=== PATIENT | male | born 1960 | race Caucasian/White ===

== ENCOUNTER → 2016-08-16 | Outpatient (CLI) | payer BC ==
[~2016-08-16] MED LIST: ATOR-22 PO; B-COTAB18 PO; LISI10TA PO; LRT5 PO; MULT-506 PO; OMEG10007 PO; OMEP40CA PO; PANT1TAB48 PO; VITAMIN D PO; ZNTT/150 PO
--- NOTE | 2016-08-16 11:52 | DIAGNOSTIC IMAGING REPORT ---
CHEST 2 VIEWS ROUTINE CLINICAL HISTORY: Shortness of breath, cough, pneumonia. COMPARISON STUDY: No previous studies for comparison. FINDINGS: The heart is borderline enlarged. There is no evidence of focal pulmonary consolidation. There is no evidence of failure. No pleural effusions are visualized.[ There is an azygos fissure. IMPRESSION: No active disease in the chest. Electronically signed by: John Rutherford M.D. 08/16/2016 11:51 AM Dictated Date/Time: 08/16/2016 11:50 AM
== END | disposition home or self-care (01) ==
LOC: C.RAD1850 11:31
PROVIDERS: ATTEND Nurse Practitioner Family
DX: J18.9 Pneumonia, unspecified organism (principal); R06.02 Shortness of breath; R05 Cough

== ENCOUNTER → 2016-08-27 | Outpatient (CLI) | payer BC ==
--- NOTE | 2016-08-27 14:40 | DIAGNOSTIC IMAGING REPORT ---
RIGHT WRIST MIN 3 VIEWS ROUTINE CLINICAL HISTORY: M79.643 Right pain. FINDINGS: moderate degenerative change of the intercarpal as well as radiocarpal joints. Components of chondrocalcinosis involving the triangular fibrocartilage. No evidence for acute fracture or dislocation. COMPARISON: None. IMPRESSION: Mild/moderate degenerative change of the intercarpal as well as radiocarpal joints. Mild chondrocalcinosis of the triangular fibrocartilage. Electronically signed by: Kirk Romero M.D. 08/27/2016 2:38 PM Dictated Date/Time: 08/27/2016 2:37 PM
== END | disposition home or self-care (01) ==
LOC: C.RAD1850 14:17
PROVIDERS: ATTEND Family Medicine
DX: M79.643 Pain in unspecified hand (principal)

== ENCOUNTER → 2017-02-28 | Day surgery (SDC) | payer BC ==
[2017-02-18 15:08] VITALS: Ht 185.4 cm; Wt 104.5 kg
[~2017-02-28] VITALS: Ht 185.4 cm; Wt 104.5 kg
[~2017-02-28] MED LIST changes: +LIDOCAINE HCL 2% 2 ML VIAL (20MG/ML) ONE; -LRT5 PO; +MIDAZOLAM HCL 1 MG/ML 2ML VIAL ONE; -OMEP40CA PO; +PANT1TAB3 PO; -PANT1TAB48 PO; +PROPOFOL IV EMULSION 10 MG/ML 20 ML VIAL IV ONE; +SODIUM CHLORIDE 0.9% 500ML 500 ML IV ONE
--- NOTE | 2017-02-28 13:10 | Endo History and Physical ---
History & Physical Date of Service: Feb 28, 2017. Chief Complaint: ABDOMINAL PAIN Referring Physician: DR. GARDNER History of Present Illness 56 yo CM who presents for EGD and Colonoscopy secondary to abdominal pain. Past Surgical History Hx Cardiac Surgery: No Hx Internal Defibrillator: No Hx Pacemaker: No Hx Abdominal Surgery: No Hx of Implantable Prosthesis: No Hx Post-Op Nausea and Vomiting: No Hx Cancer Surgery: No Hx Thoracic Surgery: No Hx Orthopedic: Yes (RT ARM SURGERY, RT KNEE SX) Hx Urinary Tract Surgery: No Family History None Social History Smoking Status: Never Smoker Hx Substance Use: No Hx Alcohol Use: Yes (RARELY) Allergies Coded Allergies: No Known Allergies (Verified , 02/28/17) Current Medications Reported Home Medications Medications Dose Route/Sig Max Daily Dose Days Date Category Vitamin B Complex (B-Complex Vitamins) 1 Tab Tab 1 Tab PO DAILY AT LUNCH 02/18/17 Reported [Vitamin D] 1 Tab PO DAILY AT LUNCH 02/18/17 Reported Zantac (Ranitidine HCl) 150 Mg Tab 150 Mg PO HS 02/18/17 Reported Protonix (Pantoprazole) 40 Mg Tab 40 Mg PO QAM 02/18/17 Reported Multivitamin (Multivitamins) Tab 1 Tab PO DAILY AT LUNCH 02/18/17 Reported Prinivil (Lisinopril) 10 Mg Tab 10 Mg PO QPM 02/18/17 Reported [place]-3 (Fish Oil) 1 Ea Cap 1 Cap PO BID 02/18/17 Reported Lipitor (Atorvastatin Calcium) 20 Mg Tab 20 Mg PO QPM 02/18/17 Reported Vital Signs Weight (Kilograms): 104.55 Height (Feet): 6 Height (Inches): 1 Date Time Temp Pulse Resp B/P (MAP) Pulse Ox O2 Delivery O2 Flow Rate FiO2 02/28/17 12:20 37.2 78 18 170/93 (118) 95 Room Air Physical Exam General Appearance: WD/WN, no apparent distress Respiratory/Chest: Auscultation: breath sounds normal Cardiovascular: Heart Auscultation: RRR Abdomen: Bowel Sounds: normal Inspection & Palpation: soft, non-distended, no tenderness, guarding & rebound Assessment and Plan Assessment: 56 yo CM who presents for EGD and Colonoscopy secondary to abdominal pain. Plan: Proceed with EGD and colonoscopy.
--- NOTE | 2017-02-28 13:56 | GI REPORT ---
Procedure Date: 02/28/2017 1:25 PM Procedure: Colonoscopy Indications: Generalized abdominal pain Medicines: Monitored Anesthesia Care Complications: No immediate complications. Estimated Blood Loss: Estimated blood loss: none. Procedure: Pre-Anesthesia Assessment: - Prior to the procedure, a History and Physical was performed, and patient medications and allergies were reviewed. The patient's tolerance of previous anesthesia was also reviewed. The risks and benefits of the procedure and the sedation options and risks were discussed with the patient. All questions were answered, and informed consent was obtained. Prior Anticoagulants: The patient has taken no previous anticoagulant or antiplatelet agents. ASA Grade Assessment: III - A patient with severe systemic disease. After reviewing the risks and benefits, the patient was deemed in satisfactory condition to undergo the procedure. After I obtained informed consent, the scope was passed under direct vision. Throughout the procedure, the patient's blood pressure, pulse, and oxygen saturations were monitored continuously. The scope was introduced through the anus and advanced to the terminal ileum. The colonoscopy was performed without difficulty. The patient tolerated the procedure well. The quality of the bowel preparation was good. The terminal ileum, ileocecal valve, appendiceal orifice, and rectum were photographed. Findings: The perianal and digital rectal examinations were normal. A 3 mm polyp was found in the ascending colon. The polyp was sessile. The polyp was removed with a cold biopsy forceps. Resection and retrieval were complete. A 5 mm polyp was found in the transverse colon. The polyp was sessile. The polyp was removed with a cold snare. Resection and retrieval were complete. There was a small lipoma, 14 mm in diameter, in the transverse colon. Impression: - One 3 mm polyp in the ascending colon, removed with a cold biopsy forceps. Resected and retrieved. - One 5 mm polyp in the transverse colon, removed with a cold snare. Resected and retrieved. - Small lipoma in the transverse colon. Recommendation: - Resume previous diet. - Continue present medications. - Repeat colonoscopy for surveillance based on pathology results. - Return to primary care physician as previously scheduled. Chad Nelson DO 02/28/2017 1:56:03 PM This report has been signed electronically. Note Initiated On: 02/28/2017 1:25 PM I attest to the content of the Intraoperative Record and orders documented therein, exceptions below
--- NOTE | 2017-02-28 14:00 | GI REPORT ---
Procedure Date: 02/28/2017 12:31 PM Procedure: Upper GI endoscopy Indications: Generalized abdominal pain Medicines: Monitored Anesthesia Care Complications: No immediate complications. Estimated Blood Loss: Estimated blood loss: none. Procedure: Pre-Anesthesia Assessment: - Prior to the procedure, a History and Physical was performed, and patient medications and allergies were reviewed. The patient's tolerance of previous anesthesia was also reviewed. The risks and benefits of the procedure and the sedation options and risks were discussed with the patient. All questions were answered, and informed consent was obtained. Prior Anticoagulants: The patient has taken no previous anticoagulant or antiplatelet agents. ASA Grade Assessment: III - A patient with severe systemic disease. After reviewing the risks and benefits, the patient was deemed in satisfactory condition to undergo the procedure. After obtaining informed consent, the endoscope was passed under direct vision. Throughout the procedure, the patient's blood pressure, pulse, and oxygen saturations were monitored continuously. The scope was introduced through the mouth, and advanced to the second part of duodenum. The upper GI endoscopy was accomplished without difficulty. The patient tolerated the procedure well. Findings: The esophagus was normal. The gastric antrum was normal. Biopsies were taken with a cold forceps for Helicobacter pylori testing. The examined duodenum was normal. Impression: - Normal esophagus. - Normal antrum. Biopsied. - Normal examined duodenum. Recommendation: - Resume previous diet. - Continue present medications. - Await pathology results. - Return to primary care physician as previously scheduled. Chad Nelson DO 02/28/2017 2:00:01 PM This report has been signed electronically. Note Initiated On: 02/28/2017 12:31 PM I attest to the content of the Intraoperative Record and orders documented therein, exceptions below
--- NOTE | 2017-02-28 14:14 | Discharge Instructions ---
Endoscopy Patient Instructions Date / Procedure(s) Performed Feb 28, 2017. Colonoscopy, EGD Allergy Information Coded Allergies: No Known Allergies (Verified , 02/28/17) Discharge Date / Findings Feb 28, 2017. EGD: Gastric antrum biopsies Colonoscopy: Colon polyps, Lipoma Medication Instructions OK to resume all medications today as prescribed Reported Home Medications Medications Dose Route/Sig Max Daily Dose Days Date Category Vitamin B Complex (B-Complex Vitamins) 1 Tab Tab 1 Tab PO DAILY AT LUNCH 02/18/17 Reported [Vitamin D] 1 Tab PO DAILY AT LUNCH 02/18/17 Reported Zantac (Ranitidine HCl) 150 Mg Tab 150 Mg PO HS 02/18/17 Reported Protonix (Pantoprazole) 40 Mg Tab 40 Mg PO QAM 02/18/17 Reported Multivitamin (Multivitamins) Tab 1 Tab PO DAILY AT LUNCH 02/18/17 Reported Prinivil (Lisinopril) 10 Mg Tab 10 Mg PO QPM 02/18/17 Reported [place]-3 (Fish Oil) 1 Ea Cap 1 Cap PO BID 02/18/17 Reported Lipitor (Atorvastatin Calcium) 20 Mg Tab 20 Mg PO QPM 02/18/17 Reported Provider Instructions Activity Restrictions - No exercising or heavy lifting for 24 hours. - Do not drink alcohol the day of the procedure. - Do not drive a car or operate machinery until the day after the procedure. - Do not make any important decisions or sign important papers in 24 hours after the procedure. Following Day: - Return to full activity which may include returning to work/school. Diet Start your diet with liquids and light foods (jello, soup, juice, toast). Then eat your usual diet if not nauseated. Treatment For Common After Affects For mild abdominal pain, bloating, or excessive gas: - Rest - Eat lightly - Lie on right side Follow-Up Information Follow-up with DR. GARDNER as scheduled Anesthesia Information What You Should Know You have had a procedure that required some medicine to reduce anxiety and discomfort. This treatment is called moderate sedation. After receiving the treatment, you may be sleepy, but you will be able to breathe on your own. The effects of the treatment may last for several hours. Follow these instructions along with Activity/Diet recommendations noted above: * Do NOT do anything where dizziness or clumsiness would be dangerous. * Rest quietly at home today, then you can be up and about tomorrow. * Have a responsible person stay with you the rest of today. * You may have had an I.V. today. If so, you may take the dressing off later today. Recommendations Call your doctor if: * Trouble breathing * Continuous vomiting for more than 24 hours * Temperature above 101 degrees * Severe abdominal pain or bloating * Pain not relieved by pain medicine ordered * There is increased drainage or redness from any incision * A large amount of rectal bleeding greater than 2-3 tablespoons. (If you had a polyp/s removed or have hemorrhoids, a small amount of blood - from the rectum is to be expected.) * You have any unanswered questions or concerns. IN THE EVENT OF A SERIOUS EMERGENCY, GO TO THE NEAREST EMERGENCY ROOM Your discharge instructions were prepared by provider Chad Nelson. Patient Instructions Signature Page Caleb Marcos Patient (or Guardian) Signature/Date: I have read and understand the instructions given to me by my caregivers. Caregiver/RN/Doctor Signature/Date: The above-named patient and/or guardian has received patient instructions on this date. + Original Patient Signature Page (only) stays with chart. Please make copy for patient.
[2017-02-28 14:15] VITALS: BP 144/99; PULSE 70; O2SAT 99
--- NOTE | 2017-02-28 14:35 | Anesthesiology Progress Note ---
Anesthesia Post Op Note Date & Time Feb 28, 2017 at 14:35 Vital Signs Pain Intensity: 8 Vital Signs Past 12 Hours Date Time Temp Pulse Resp B/P (MAP) Pulse Ox O2 Delivery O2 Flow Rate FiO2 02/28/17 14:15 70 18 144/99 (114) 99 Room Air 02/28/17 14:00 71 18 172/96 (121) 99 Room Air 02/28/17 13:45 86 18 141/86 (104) 98 Room Air 02/28/17 12:20 37.2 78 18 170/93 (118) 95 Room Air Notes Mental Status: alert / awake / arousable, participated in evaluation Pt Amnestic to Procedure: Yes Nausea / Vomiting: adequately controlled Pain: adequately controlled Airway Patency, RR, SpO2: stable & adequate BP & HR: stable & adequate Hydration State: stable & adequate Anesthetic Complications: no major complications apparent
== END | disposition home or self-care (01) ==
LOC: C.GI 12:00
PROVIDERS: ATTEND Internal Medicine
DX: K29.60 Other gastritis without bleeding (principal); D12.2 Benign neoplasm of ascending colon; D12.3 Benign neoplasm of transverse colon; I10 Essential (primary) hypertension; E78.5 Hyperlipidemia, unspecified; M19.90 Unspecified osteoarthritis, unspecified site; Z79.899 Other long term (current) drug therapy

== ENCOUNTER → 2017-03-14 | Outpatient (CLI) | payer BC ==
[~2017-03-14] MED LIST changes: -LIDOCAINE HCL 2% 2 ML VIAL (20MG/ML) ONE; -MIDAZOLAM HCL 1 MG/ML 2ML VIAL ONE; +OPTIRAY 320 IV PRN; -PROPOFOL IV EMULSION 10 MG/ML 20 ML VIAL IV ONE; +RANI150T85 PO; -SODIUM CHLORIDE 0.9% 500ML 500 ML IV ONE; -ZNTT/150 PO
--- NOTE | 2017-03-14 12:42 | DIAGNOSTIC IMAGING REPORT ---
CT SCAN OF THE ABDOMEN AND PELVIS WITH IV CONTRAST CLINICAL HISTORY: Weight loss. Generalized abdominal pain. COMPARISON STUDY: Abdominal ultrasound dictated 12/27/2011. TECHNIQUE: Following the IV administration of 93 cc of Optiray 320, CT scan of the abdomen and pelvis is performed from the lung bases to the proximal femora. Images are reviewed in the axial, sagittal, and coronal planes. IV contrast was administered without complication. A dose lowering technique was utilized adhering to the principles of ALARA. CT DOSE: 711.76 mGy.cm FINDINGS: Lung bases: The heart is top normal in size and without pericardial effusion. The lung bases are clear noting dependent atelectasis. Liver: The contrast-enhanced liver is normal in size and contour. The liver demonstrates significant attenuation consistent with mild hepatic steatosis. There is no intrahepatic biliary ductal dilatation. The hepatic veins and portal veins are patent. Gallbladder: Unremarkable. Spleen: Normal in size and attenuation. Pancreas: A punctate calcification is incidentally noted in the pancreatic tail. The pancreas is otherwise normal in appearance. Adrenal glands: Unremarkable. Kidneys: The contrast enhanced kidneys are normal in size and without hydronephrosis. The kidneys enhance symmetrically. Abdominal vasculature: The abdominal aorta is normal in course and caliber noting scattered foci of atherosclerotic calcification. Bowel: There are scattered colonic diverticula without CT evidence of acute diverticulitis. Mild to moderate colonic fecal retention is observed. No bowel obstruction is seen. The appendix is well-visualized and normal. Peritoneum: There is no intraperitoneal free air or abdominal ascites. There is a small fat-containing umbilical hernia. Lymphadenopathy: None. Pelvic viscera: The bladder, prostate, and seminal vesicles are normal as visualized. Skeletal structures: No lytic or blastic lesions are seen. Mild lumbosacral spondylosis is noted. A 2.3 cm ossific lesion arises posteriorly from the subtrochanteric right femur. This is only partially imaged and may represent an osteochondroma. IMPRESSION: 1. There are no acute infectious or inflammatory findings in the abdomen or pelvis. 2. Mild to moderate colonic fecal retention. No bowel obstruction is seen. 3. Mild hepatic steatosis. 4. Question osteochondroma arising posteriorly from the subtrochanteric right femur. Correlation with right femoral radiographs is recommended for further assessment. 5. Additional findings as above. Electronically signed by: Troy Copeland M.D. 03/14/2017 12:41 PM Dictated Date/Time: 03/14/2017 12:35 PM
== END | disposition home or self-care (01) ==
LOC: C.CTS 11:46
PROVIDERS: ATTEND Registered Nurse
DX: R63.4 Abnormal weight loss (principal); R14.0 Abdominal distension (gaseous); R10.9 Unspecified abdominal pain; K59.00 Constipation, unspecified; K76.0 Fatty (change of) liver, not elsewhere classified; R93.7 Abnormal findings on diagnostic imaging of other parts of musculoskeletal system

== ENCOUNTER → 2017-03-19 | Outpatient (CLI) | payer OTHER ==
[~2017-03-19] MED LIST changes: -OPTIRAY 320 IV PRN
--- NOTE | 2017-03-19 14:42 | DIAGNOSTIC IMAGING REPORT ---
R FEMUR 2 VIEWS ROUTINE CLINICAL HISTORY: R93.[id number] [address] 03/14/2017 COMPARISON: CT 03/14/2017 DISCUSSION: Benign bony exostosis posterior aspect proximal right femur. Additional small bony exostosis arising from the anterior aspect distal femur medially superior to the patellofemoral joint. These findings are considered benign. Degenerative change right knee involving all major joint compartments. There is no evidence for soft tissue swelling. IMPRESSION: Multiple bony exostosis accounting for the CT finding described previously. These are considered benign findings. Degenerative change right knee. No acute process. The above report was generated using voice recognition software. It may contain grammatical, syntax or spelling errors. Electronically signed by: Kirk Romero M.D. 03/19/2017 2:41 PM Dictated Date/Time: 03/19/2017 2:39 PM
--- NOTE | 2017-03-19 14:43 | DIAGNOSTIC IMAGING REPORT ---
ABDOMEN 2VIEW W/PA CHEST RTN CLINICAL HISTORY: K59.[id number] [id number] COMPARISON STUDY: CT scan dated 03/14/2017 FINDINGS: The heart is mildly enlarged. There is an azygos fissure. There is no free intraperitoneal air. There is no focal pulmonary consolidation. Erect and supine views the abdomen reveal no abnormally dilated loops of large or small bowel. There are no transition zones indicate bowel obstruction. There is a 35mm calcified lesion projected over the intertrochanteric right femur. This corresponds to the lesion described on CT scanning. IMPRESSION: No evidence of bowel obstruction. No evidence of free air. Electronically signed by: John Rutherford M.D. 03/19/2017 2:42 PM Dictated Date/Time: 03/19/2017 2:40 PM
== END | disposition home or self-care (01) ==
LOC: C.RAD1850 14:20
PROVIDERS: ATTEND Registered Nurse
DX: K59.00 Constipation, unspecified (principal); R93.8 Abnormal findings on diagnostic imaging of other specified body structures; M25.761 Osteophyte, right knee; M17.11 Unilateral primary osteoarthritis, right knee

== ENCOUNTER 2018-05-31 11:21 | Inpatient (IN) ==
--- NOTE | 2018-05-31 12:48 | XRay Report ---
XR chest 1V portable CLINICAL HISTORY: Atypical chest pain COMPARISON STUDY: 12/15/2017 FINDINGS: The heart is mildly enlarged. There is suspected underlying emphysema. There is no failure. There is no focal pulmonary consolidation. There are no pleural effusions. There is an azygos fissur e.[ IMPRESSION: No active disease in the chest. Electronically signed by: John Rutherford M.D. 05/31/2018 12:47 PM
[2018-05-31 13:11] LABS: Basophils # (auto) 0.02 K/uL (0-0.2); Basophils % (auto) 0.2 %; Eosinophils # (auto) 0.06 K/uL (0-0.5); Eosinophils % (auto) 0.6 %; Hematocrit (blood only) 36.4 % (42-52); Hemoglobin 12.9 g/dL (14.0-18.0); Immature Granulocytes # (auto) 0.06 K/uL (0.00-0.02); Immature Granulocytes % (auto) 0.6 %; Lymphocytes # (auto) 1.35 K/uL (1.2-3.4); Lymphocytes % (auto) 14.2 %; Mean Corpuscular Hgb Conc 35.4 g/dL (32-36); Mean Corpuscular Volume 83.7 fL (80-100); Mean Platelet Volume 11.9 fL (7.4-10.4); Monocytes # (auto) 1.02 K/uL (0.11-0.59); Monocytes % (auto) 10.7 %; Neutrophils # (auto) 6.98 K/uL (1.4-6.5); Neutrophils % (auto) 73.7 %; Platelet Count 162 K/uL (130-400); RDW Coefficient of Variation 13.7 % (11.5-14.5); RDW Standard Deviation 41.4 fL (36.4-46.3); Red Blood Count 4.35 M/uL (4.7-6.1); White Blood Count 9.49 K/uL (4.8-10.8)
[2018-05-31 13:28] LABS: Partial Thromboplastin Ratio 0.8; Partial Thromboplastin Time 22.5 Seconds (21.0-31.0); Prothrombin Time 10.3 Seconds (9.0-12.0)
[2018-05-31 13:38] LABS: Alanine Aminotransferase 39 U/L (12-78); Albumin Level 4.2 gm/dl (3.4-5.0); Aspartate Aminotransferase 107 U/L (15-37); BUN Creatinine Ratio 20.3 (10-20); Blood Urea Nitrogen 74 mg/dl (7-18); Calcium 8.6 mg/dl (8.5-10.1); Carbon Dioxide 26 mmol/L (21-32); Chloride 91 mmol/L (98-107); Creatinine Clr Calc Pharmacy 27.3 ml/min; Est GFR (African American) 19.9; Est GFR (Non-African American) 17.2; Glucose 109 mg/dl (70-99); Potassium 4.4 mmol/L (3.5-5.1); Sodium 129 mmol/L (136-145)
[2018-05-31 13:43] LABS: Albumin Globulin Ratio 1.2 (0.9-2); Alkaline Phosphatase 76 U/L (45-117); Bilirubin,Total 1.2 mg/dl (0.2-1); Globulin 3.4 gm/dl (2.5-4.0); Total Protein 7.6 gm/dl (6.4-8.2); Troponin I < 0.015 ng/ml (0-0.045)
--- NOTE | 2018-05-31 13:49 | CT Scan Report ---
CT OF THE CERVICAL SPINE CLINICAL HISTORY: Severe posterior neck pain COMPARISON STUDY: No previous studies for comparison. CT DOSE: 277.48 mGy.cm TECHNIQUE: CT scan of the cervical spine was performed from the skull base to the thoracic inlet. Claudia ges are reviewed in the axial, sagittal, and coronal planes. IV contrast was not administered for thi s examination. A dose lowering technique was utilized adhering to the principles of ALARA. 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 There ar e C1-2 arthritic changes. There are no acute fractures. The prevertebral soft tissues are normal. No fractures or subluxations are visualized. There are multilevel degenerative changes most pronounced at the C5-6 level. IMPRESSION: 1. No acute fractures or traumatic subluxations 2. Degenerative changes at C5-6 level with posterior osteophytic spurring 3. 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 Electronically signed by: John Rutherford M.D. 05/31/2018 1:47 PM
[2018-05-31] MEDS ORDERED: SODIUM CHLORIDE 0.9% 1000ML 1,000 ML IV ONE (13:59)
[2018-05-31] MEDS ORDERED: MoRPHine SULFATE 4 MG/ML 1 ML CARP\\VIAL IV STA (14:13)
[2018-05-31] MEDS ORDERED: ONDANSETRON INJ 2 MG/ML 2 ML VIAL IV STA (14:13)
[2018-05-31 14:46] LABS: Appearance Urine Clear (Clear); Bacteria Urine Automated Negative (Negative); Bilirubin Urine Negative (Negative); Blood Urine 1+ (Negative); Color Urine Yellow; Glucose Urine UA Negative (Negative); Ketones Urine Negative (Negative); Leukocyte Esterase Urine Negative (Negative); Nitrite Urine Negative (Negative); Protein Urine Negative (Negative); RBC Urine Automated 0-4 /hpf (0-4); Specific Gravity Urine 1.016 (1.000-1.030); Urobilinogen Urine Negative (Negative)
--- NOTE | 2018-05-31 14:56 | History & Physical Report ---
Date of Service May 31, 2018 Assessment & Plan (1) LATOSHA (acute kidney injury): - Will admit to med surg - Appears pt baseline Cr. is ~0.83-1.1 last November, no hx of ckd. - Hold on nephrotoxins including lisinopril, ibuprofen, sulindac, Maxzide. - NSS at 100 ml/hr x 12 hrs and reassess volume status with hx of lower extremity edema. - Weight loss as per HPI likely partial dehydration and pharmacotherapy. Monitor with daily weights. - Voltaren gel for pain. (2) Neck pain: - Appears to be musculoskeletal as this is reproducible on exam - ice, rest, tylenol and voltaren gel for pain. No NSAIDs with LATOSHA as above. - Consider flexeril if pain unresolved with the conservative measures as above. (3) COPD (chronic obstructive pulmonary disease): - Last PFTs completed in Dec 2017, demonstratated mild obstructive pattern, could not exclude coexisting restriction. - Continue proAir, dulera, spiriva. Has outpt home sleep study which r/o JULY. - follows with Karla Kamara as outpt. - Stable (4) HTN (hypertension): - Continue metoprolol succinate 25 mg daily, diltiazem 120 mg daily - Hold lisinopril, lasix (5) HLD (hyperlipidemia): - Cont atorvastatin 20 mg HS (6) Hiatal hernia: - noted. Continue PPI and H2 mitch - pt with complaints of bloating and distension which has been ongoing x 6 mo. (7) Esophageal dysphagia: - Stable, continue PPI and H2 mitch. Dentures in for all meals. (8) Overweight (BMI 25.0-29.9): (9) Bilateral lower extremity edema: - Hold lasix - follow (10) Venous insufficiency: - As above. (11) PAC (premature atrial contraction): - Hx of such, stable. - EKG reviewed showing PACs. No acute findings (12) DVT prophylaxis: - Teds, scds, heparin subq History of Present Illness Chief Complaint: Neck pain Primary Care Provider: Roslyn Pennington This is a 57 yo M with PMHx of HTN, HLD, COPD, hiatal hernia, tubular adenoma of the colon, gastritis, leg swelling, hepatic steatosis, diverticulitis, PACs, venous insufficiency, who presents with worsening neck pain x 2 days. 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 Patient reports increased overhead lifting and strenuous activities at his current job compared to previously. He has been using ibuprofen 600 mg in the morning and night along with heat to help alleviate pain. Patient notes that he has been eating and drinking about at his baseline, however admits to not drinking as much water while he is busy at work. Patient has been working 6-7 hours a day for the past 2 weeks. He is able to move his neck from side to side and up and down, however looking to the left more than ~45 degrees causes pain. He denies any recent fevers, chills, sweats, chest pain, shortness of breath. He reports no recent leg swelling and that his weight has dropped 13 lbs in the past 2 weeks from his home scale compared to recent outpt office visit. While being assessed in the ER, the patient was found to have an elevated creatinine of 3.67 compared to his baseline of 0.83-1.00 last November. His BUN is also elevated at 75. Patient denies any changes in urinary habits, no dysuria, urine is clear yellow, no increased frequency. Patient notes a chronic abdominal distention and states he has a lot of gas. Patient has been taking lansoprazole and ranitidine but feels this is not necessarily helping. Pt notes he has been taking routine lasix 40 mg daily, lisinopril 10 mg daily, sulindac 200 mg BID, Maxzide 25mg daily as well as the ibuprofen mentioned earlier. Allergies Allergy/AdvReac Type Severity Reaction Status Date / Time No Known Allergies Allergy Mild Verified 02/18/18 14:04 Home Medications Home Medications Medication Instructions Recorded Confirmed Type atorvastatin 20 mg PO HS 11/26/17 05/31/18 History Dulera 2 puff INHALATION Q12H 02/03/18 05/31/18 History albuterol sulfate [ProAir HFA] 2 puff INHALATION QID PRN 02/03/18 05/31/18 History furosemide [Lasix] 40 mg PO QAM 02/03/18 05/31/18 History lansoprazole 30 mg PO QAM 02/03/18 05/31/18 History lisinopril 10 mg PO QAM 02/03/18 05/31/18 History montelukast [Singulair] 10 mg PO PM 02/03/18 05/31/18 History ranitidine HCl 150 mg PO HS 02/03/18 05/31/18 History zolpidem [Ambien] 1 - 2 tab PO HS PRN 02/03/18 05/31/18 History diltiazem HCl [Cartia XT] 120 mg PO DAILY 03/03/18 05/31/18 History metoprolol succinate [Toprol XL] 25 mg PO DAILY 03/03/18 05/31/18 History sulindac 200 mg PO BID 03/03/18 05/31/18 History triamterene-hydrochlorothiazid 1 tab PO DAILY 03/03/18 05/31/18 History [Maxzide-25mg] ibuprofen 600 mg PO BID 05/31/18 05/31/18 History Past Med/Surg History Medical History LATOSHA (acute kidney injury) Neck pain Duodenitis (Inactive) Fluid overload (Inactive) "FLUID IN MY LUNGS" Leg swelling (Inactive) Arrhythmia Chronic obstructive pulmonary disease GERD (gastroesophageal reflux disease) Hiatal hernia Hyperlipidemia Hypertension Osteoarthritis Surgical History Clubfoot, congenital H/O palate surgery History of adenoidectomy History of arthroscopy RT KNEE History of colonoscopy History of esophagogastroduodenoscopy (EGD) History of nasal septoplasty History of surgery on arm RT ARM History of tonsillectomy History of tooth extraction History of vein stripping Family History Other No pertinent family history Social History Preferred Language: [place] Communication Ability: Effective Vocational Aide Required: No Beliefs That Will Affect Care: None Current Living Situation: Alone Current Living Situation Comment: LIVES WITH MOTHER (PT HELPS MOTHER OUT) Other Information That Helps Us Care for You: No Feels Safe at Home: Yes Safety Concerns: Feels Safe At This Time Smoking Status: Never smoker Hx Alcohol Use: No Hx Substance Use: No Review of Systems Constitutional: No fever, sweats or chills Eyes: No diplopia, no worsening or blurred vision ENT: normal hearing, no trouble swallowing Respiratory: No cough, sputum, dyspnea at rest or on exertion Cardiovascular: No chest pain, tightness or palpitations Abdomen: No pain, nausea, vomiting, diarrhea or constipation Musculoskeletal: + As per HPI. No joint pain, calf pain, + hx of leg swelling but currently negative Neurologic: No weakness, numbness/tingling, or balance problems Psychiatric: No anxiety or depression Skin: No rash or itch Physical Exam Vital Signs (Past 24 Hours): Last Vital Signs Temp 36.7 C 05/31/18 11:22 Pulse 72 05/31/18 14:11 Resp 17 05/31/18 14:11 BP 112/71 05/31/18 14:11 Pulse Ox 100 05/31/18 14:11 Physical Exam: General: awake, alert, no apparent distress, +overweight Head: Normocephalic, atraumatic ENT: PERRL, EOMI, no pharyngeal exudate, mucous membranes moist, + dentures. Chest: Clear to auscultation, on room air, no adventitious breath sounds Cardiac: Regular rate and rhythm, no murmur, no JVD, normal peripheral pulses, good capillary refill Abdominal: NABS x 4 quadrants, soft, + mild distension, nontender to palpation, no rebound, guarding or tenderness Extremities: Normal inspection, no peripheral edema or erythema, calfs nontender to palpation Musculoskeletal: + point tenderness over left lateral cervical region at level of C4-C7, +pain with left lateral neck rotation. Psych: Normal mood and affect Neuro: AAO x 3, strength intact bilaterally and related 5/5, no motor deficits, speech is clear, no peripheral sensory deficits Results & Data Diagnostic Findings XR chest 1V portable CLINICAL HISTORY: Atypical chest pain COMPARISON STUDY: 12/15/2017 FINDINGS: The heart is mildly enlarged. There is suspected underlying emphysema. There is no failure. There is no focal pulmonary consolidation. There are no pleural effusions. There is an azygos fissure.[ IMPRESSION: No active disease in the chest. CT OF THE CERVICAL SPINE CLINICAL HISTORY: Severe posterior neck pain COMPARISON STUDY: No previous studies for comparison. CT DOSE: 277.48 mGy.cm TECHNIQUE: CT scan of the cervical spine was performed from the skull base to the thoracic inlet. Images are reviewed in the axial, sagittal, and coronal planes. IV contrast was not administered for this examination. A dose lowering technique was utilized adhering to the principles of ALARA. 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 There are C1-2 arthritic changes. There are no acute fractures. The prevertebral soft tissues are normal. No fractures or subluxations are visualized. There are multilevel degenerative changes most pronounced at the C5-6 level. IMPRESSION: 1. No acute fractures or traumatic subluxations 2. Degenerative changes at C5-6 level with posterior osteophytic spurring 3. 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 ECG Additional Comments: 31-MAY-2018 12:40:55 [facility] Sinus rhythm with Premature atrial complexes Otherwise normal ECG When compared with ECG of 03-DEC-2017 20:09, No significant change was found 25mm/s 10mm/mV 150Hz 8.0 SP2 12SL 241 DAGO: 10 Referred by: ED Unconfirmed Vent. rate 68 BPM TX interval 200 ms QRS duration 98 ms QT/QTc 400/425 ms P-R-T axes 82 -29 15 Code Status & VTE Plan Code Status Full Supervising Physician Co-Signing Physician Notes PA Supervision Note: I personally saw and examined the patient. I verified all callaway points and agree with LUIS Jones with the following exceptions and/or additions: Pt here with neck pain and was found to have renal failure in ER. He admits to not drinking or eating as much the last few weeks due to a new job. Has been having leg cramps. He also c/o chronic belching and flatus for 6-12 months and has had GI workup, tried multiple meds. History reviewed as above ROS as above Vitals reviewed NAD, obese, alert, awake, speech is dysarthric at times RRR no mgr MMM, OP clear CTAB no wcr Abd +BS soft NT ND Ext trace pitting edema left ankle, otherwise normal Skin no rashes FeNA 2.37% consistent more with ATN however BUN/Marker Assembler ratio >20 so likely a prerenal component as well. UA with 1+ blood but no RBCs--> could be myoglobin AST elevated from previous at 100 Acute kidney injury--could be prerenal from dehydration in setting of taking diuretics and lisinopril, but turned into ATN from prolonged dehydration/hypotension? -bladder scan PVR only 80 mLs so not retaining but checking renal US -could be rhabdomyolysis given LATOSHA, 1+ blood in urine without RBCs (could be myoglobin), and AST elevated--->> Check CPK now and in AM -if CPK>10k tonight, advised RN to increase his IVFs to 150 mls/hr -follow LFTs in AM as well
[2018-05-31] MEDS ORDERED: NON-FORMULARY MEDICATION (Mometasone-Formoterol [Dulera] 2 PUFFS) INH SCH (16:46)
[2018-05-31] MEDS ORDERED: ACETAMINOPHEN 325 MG TAB PO PRN (16:46)
[2018-05-31] MEDS ORDERED: ONDANSETRON INJ 2 MG/ML 2 ML VIAL IV PRN (16:46)
--- NOTE | 2018-05-31 18:01 | Emergency Department Note ---
Entered by Mega Cheema acting as a scribe for Obi Ruby DO History of Present Illness General Chief complaint: Neck Injury/Pain Stated complaint: PAIN IN BACK OF NECK Source: patient Mode of arrival: ambulatory History of Present Illness Provider complaint: Neck Pain Onset (ago): day(s) 2 Location: neck Maximum Pain Intensity: 8 Current Pain Intensity: 8 Quality: + other (neck pain ) Exacerbated By: + movement Associated symptoms: no cough and no headaches Patient is a 57 year old male who presents himself to the ER with complains of neck pain which started a couple days ago. He states while lying down he feels the pain but the pain is exacerbated when he starts moving around. He reports the pain at a value of 8 on the pain intensity scale. Patient states he has not seen a provider in the past for this same issue. He also notes his legs have been falling asleep. Patient reports he does have a past history of COPD. He denied coughs and headaches. Home Medications Home Medications Medication Instructions Recorded Confirmed Type atorvastatin 20 mg PO HS 11/26/17 05/31/18 History Dulera 2 puff INHALATION Q12H 02/03/18 05/31/18 History albuterol sulfate [ProAir HFA] 2 puff INHALATION QID PRN 02/03/18 05/31/18 History furosemide [Lasix] 40 mg PO QAM 02/03/18 05/31/18 History lansoprazole 30 mg PO QAM 02/03/18 05/31/18 History lisinopril 10 mg PO QAM 02/03/18 05/31/18 History montelukast [Singulair] 10 mg PO PM 02/03/18 05/31/18 History ranitidine HCl 150 mg PO HS 02/03/18 05/31/18 History zolpidem [Ambien] 1 - 2 tab PO HS PRN 02/03/18 05/31/18 History diltiazem HCl [Cartia XT] 120 mg PO DAILY 03/03/18 05/31/18 History metoprolol succinate [Toprol XL] 25 mg PO DAILY 03/03/18 05/31/18 History sulindac 200 mg PO BID 03/03/18 05/31/18 History triamterene-hydrochlorothiazid 1 tab PO DAILY 03/03/18 05/31/18 History [Maxzide-25mg] ibuprofen 600 mg PO BID 05/31/18 05/31/18 History Allergies Allergy/AdvReac Type Severity Reaction Status Date / Time No Known Allergies Allergy Mild Verified 02/18/18 14:04 Past Med/Surg History Medical History LATOSHA (acute kidney injury) Neck pain Duodenitis (Inactive) Fluid overload (Inactive) "FLUID IN MY LUNGS" Leg swelling (Inactive) Arrhythmia Chronic obstructive pulmonary disease GERD (gastroesophageal reflux disease) Hiatal hernia Hyperlipidemia Hypertension Osteoarthritis Surgical History Clubfoot, congenital H/O palate surgery History of adenoidectomy History of arthroscopy RT KNEE History of colonoscopy History of esophagogastroduodenoscopy (EGD) History of nasal septoplasty History of surgery on arm RT ARM History of tonsillectomy History of tooth extraction History of vein stripping Family History Other No pertinent family history Social History Preferred Language: Thai Communication Ability: Effective Md Do Resident Urgent Care Required: No Beliefs That Will Affect Care: None Current Living Situation: Alone Current Living Situation Comment: LIVES WITH MOTHER (PT HELPS MOTHER OUT) Other Information That Helps Us Care for You: No Feels Safe at Home: Yes Safety Concerns: Feels Safe At This Time Smoking Status: Never smoker Hx Alcohol Use: No Hx Substance Use: No Review of Systems See HPI for pertinent positives & negatives. and A total of 10 systems reviewed and were otherwise negative Physical Exam Vital Signs Vital Signs - 24 hr 05/31/18 12:57 05/31/18 13:30 05/31/18 14:11 Temperature Temperature Source Pulse Rate [Left Finger] 72 72 Respiratory Rate 17 17 Blood Pressure [Left Arm] 119/58 L 112/71 Blood Pressure Mean [Left Arm] 78 84 Blood Pressure Position [Left Arm] Pulse Oximetry 95 99 100 Oxygen Delivery Method Room Air Room Air Room Air Oxygen Flow Rate 95 05/31/18 15:56 05/31/18 16:08 05/31/18 17:18 Temperature 36.3 C L Temperature Source Oral Pulse Rate [Left Finger] 86 71 Respiratory Rate 15 20 Blood Pressure [Left Arm] 148/75 H 124/71 Blood Pressure Mean [Left Arm] 99 88 Blood Pressure Position [Left Arm] Lying Pulse Oximetry 96 95 97 Oxygen Delivery Method Room Air Room Air Room Air Oxygen Flow Rate 06/01/18 00:23 06/01/18 08:08 Temperature 36.9 C 36.8 C Temperature Source Oral Oral Pulse Rate [Left Finger] 75 73 Respiratory Rate 20 18 Blood Pressure [Left Arm] 116/66 119/70 Blood Pressure Mean [Left Arm] 82 86 Blood Pressure Position [Left Arm] Pulse Oximetry 96 98 Oxygen Delivery Method Room Air Room Air Oxygen Flow Rate GENERAL: Patient is awake alert in no acute distress patient is resting comfortably and showing no signs of anxiety EYES: The conjunctivae are clear. The pupils are round and reactive. EARS, NOSE, MOUTH AND THROAT: The nose is without any evidence of any deformity. Mucous membranes are moist tongue is midline NECK: There is upper cervical spine tenderness to palpation. Range of motion elicits pain. There was no step-off noted. There was paravertebral muscle spasm in the upper cervical spine. RESPIRATORY: Normal respiratory effort is noted there is no evidence of wheezing rhonchi or rales CARDIOVASCULAR: Regular rate and rhythm noted there no murmurs rubs or gallops normal S1 normal S2 GASTROINTESTINAL: The abdomen is distended. There is diffuse tenderness to palpation but no guarding or rigidity. MUSCULOSKELETAL/EXTREMITIES: There is no evidence of gross deformity full range of motion is noted in the hips and shoulders SKIN: There is no obvious evidence of any rash. There are no petechiae, pallor or cyanosis noted. NEUROLOGIC: Patient is awake alert and oriented x3 strength is symmetric patellar reflexes are 2+ bilaterally Course 1212: Past medical records reviewed. The patient was evaluated in room C11A, and a complete history and physical examination were performed. 1357: I reevaluated the patient. 1441: The patient will be admitted under the care of GERI Drake, Hospitalist who will admit the patient under their care for further treatment. Consultations Consultation #1: GERI Drake, Time: 14:41 Administered Medications Acetaminophen (Tylenol) 650 mg PO Q4H PRN PRN Reason: Moderate Pain Stop: 06/30/18 16:45 Last Admin: 05/31/18 22:17 Dose: 650 mg Documented by: [id number] Albuterol (Ventolin Hfa) 2 puffs INH QID PRN PRN Reason: Shortness Of Breath Stop: 06/30/18 17:30 Last Admin: 06/01/18 07:11 Dose: 2 puffs Documented by: [id number] Atorvastatin Calcium (Lipitor) 20 mg PO HS [facility] Stop: 06/30/18 20:59 Last Admin: 05/31/18 21:17 Dose: 20 mg Documented by: [id number] Diclofenac Sodium (Voltaren 1% Top) 1 appln EXT QID FREDDIE Stop: 06/30/18 22:14 Last Admin: 06/01/18 09:00 Dose: 1 appln Documented by: [id number] Admin: 05/31/18 23:25 Dose: 1 appln Documented by: [id number] Diltiazem HCl (Cardizem Cd) 120 mg PO DAILY FREDDIE Stop: 07/01/18 08:59 Last Admin: 06/01/18 08:59 Dose: 120 mg Documented by: [id number] Heparin Sodium (Porcine) (Heparin Sodium (Porcine)) 5,000 units SQ Q8 FREDDIE Stop: 06/30/18 21:59 Last Admin: 06/01/18 06:13 Dose: 5,000 units Documented by: [id number] Cosigned by: [id number] Admin: 05/31/18 21:18 Dose: 5,000 units Documented by: [id number] Cosigned by: [id number] Sodium Chloride (Nss 1000ml) 1,000 mls @ 100 mls/hr IV .Q10H FREDDIE Stop: 06/30/18 04:45 Last Admin: 06/01/18 04:56 Dose: 100 mls/hr Documented by: [id number] Infusion: 06/01/18 04:22 Dose: 100 mls/hr Documented by: [id number] Admin: 05/31/18 18:22 Dose: 100 mls/hr Documented by: [id number] Metoprolol Succinate (Toprol Xl) 25 mg PO DAILY FREDDIE Stop: 07/01/18 08:59 Last Admin: 06/01/18 08:59 Dose: 25 mg Documented by: [id number] Miscellaneous (Order Awaiting Action) 1 ea N/A QS [facility] Stop: 07/01/18 00:00 Last Admin: 06/01/18 08:58 Dose: Not Given Documented by: [id number] Admin: 06/01/18 00:41 Dose: Not Given Documented by: [id number] Montelukast Sodium (Singulair) 10 mg PO PM FREDDIE Stop: 06/30/18 20:59 Last Admin: 05/31/18 21:17 Dose: 10 mg Documented by: [id number] Ranitidine HCl (Zantac) 150 mg PO HS FREDDIE Stop: 06/30/18 20:59 Last Admin: 05/31/18 21:17 Dose: 150 mg Documented by: [id number] Discontinued Medications Sodium Chloride (Nss 1000ml) 1,000 mls @ 999 mls/hr IV .Q1H1M ONE Stop: 05/31/18 14:59 Last Infusion: 05/31/18 15:15 Dose: 0 mls/hr Documented by: [id number] Admin: 05/31/18 14:11 Dose: 999 mls/hr Documented by: [id number] Influenza Virus Vaccine Quadrival (Flucelvax Quad Vaccine) 0.5 ml IM .ONCE ONE Stop: 05/31/18 21:31 Last Admin: 06/01/18 09:48 Dose: Not Given Documented by: [id number] Morphine Sulfate (Morphine Sulfate) 4 mg IV NOW STA Stop: 05/31/18 14:14 Last Admin: 05/31/18 14:48 Dose: 4 mg Documented by: [id number] Ondansetron HCl (Zofran) 4 mg IV NOW STA Stop: 05/31/18 14:14 Last Admin: 05/31/18 14:48 Dose: 4 mg Documented by: [id number] Medical Decision Making Differential Diagnosis Differential includes acute coronary syndrome, myocardial infarction, CVA, TIA, anemia, infection, pneumonia, UTI, pyelonephritis, poor nutrition, dehydration, electrolyte disturbance,hypoglycemia. Medical Records Attestation: I reviewed the patient's medical records. Home Medications Current Medication List: was personally reviewed by me Laboratory Data Attestation: I reviewed the patient's lab results. Result diagrams: 06/01/18 08:43 06/01/18 08:43 Lab Results 05/31/18 05/31/18 05/31/18 Range/Units 12:50 12:50 12:50 WBC 9.49 (4.8-10.8) K/uL RBC 4.35 L (4.7-6.1) M/uL Hgb 12.9 L (14.0-18.0) g/dL Hct 36.4 L (42-52) % MCV 83.7 (80-100) fL MCH 29.7 (25-34) pg MCHC 35.4 (32-36) g/dL RDW Std Deviation 41.4 (36.4-46.3) fL RDW Coeff of Omar 13.7 (11.5-14.5) % Plt Count 162 (130-400) K/uL MPV 11.9 H (7.4-10.4) fL Immature Gran % (Auto) 0.6 % Neut % (Auto) 73.7 % Lymph % (Auto) 14.2 % Winn % (Auto) 10.7 % Eos % (Auto) 0.6 % Baso % (Auto) 0.2 % Immature Gran # (Auto) 0.06 H (0.00-0.02) K/uL Neut # (Auto) 6.98 H (1.4-6.5) K/uL Lymph # (Auto) 1.35 (1.2-3.4) K/uL Winn # (Auto) 1.02 H (0.11-0.59) K/uL Eos # (Auto) 0.06 (0-0.5) K/uL Baso # (Auto) 0.02 (0-0.2) K/uL PT 10.3 (9.0-12.0) Seconds INR 1.0 (0.9-1.1) APTT 22.5 (21.0-31.0) Seconds PTT Ratio 0.8 Sodium 129 L (136-145) mmol/L Potassium 4.4 (3.5-5.1) mmol/L Chloride 91 L (98-107) mmol/L Carbon Dioxide 26 (21-32) mmol/L Anion Gap 12.0 H (3-11) BUN 74 H (7-18) mg/dl Creatinine 3.67 H (0.6-1.4) mg/dl Est Cr Clr Drug Dosing 27.3 ml/min Est GFR ( Amer) 19.9 Est GFR (Non-Af Amer) 17.2 BUN/Creatinine Ratio 20.3 H (10-20) Glucose 109 H (70-99) mg/dl Osmolality (280-300) mOsm/kg Calcium 8.6 (8.5-10.1) mg/dl Total Bilirubin 1.2 H (0.2-1) mg/dl AST 107 H (15-37) U/L ALT 39 (12-78) U/L Alkaline Phosphatase 76 (45-117) U/L Total Creatine Kinase 3300 H (39-308) U/L Troponin I < 0.015 (0-0.045) ng/ml Total Protein 7.6 (6.4-8.2) gm/dl Albumin 4.2 (3.4-5.0) gm/dl Globulin 3.4 (2.5-4.0) gm/dl Albumin/Globulin Ratio 1.2 (0.9-2) Lipase 396 H (73-393) U/L Urine Color Urine Appearance (Clear) Urine pH (4.5-7.5) Ur Specific Daisy (1.000-1.030) Urine Protein (Negative) Urine Glucose (UA) (Negative) Urine Ketones (Negative) Urine Blood (Negative) Urine Nitrite (Negative) Urine Bilirubin (Negative) Urine Urobilinogen (Negative) Ur Leukocyte Esterase (Negative) Urine WBC (Auto) (0-5) /hpf Urine RBC (Auto) (0-4) /hpf U Hyaline Cast (Auto) (0-5) /lpf U Epithel Cells (Auto) (0-5) /lpf Urine Bacteria (Auto) (Negative) Urine Osmolality (500-800) mOsm/kg Ur Random Creatinine mg/dl Ur Random Sodium mmol/L 05/31/18 05/31/18 05/31/18 Range/Units 12:50 14:30 14:30 WBC (4.8-10.8) K/uL RBC (4.7-6.1) M/uL Hgb (14.0-18.0) g/dL Hct (42-52) % MCV (80-100) fL MCH (25-34) pg MCHC (32-36) g/dL RDW Std Deviation (36.4-46.3) fL RDW Coeff of Omar (11.5-14.5) % Plt Count (130-400) K/uL MPV (7.4-10.4) fL Immature Gran % (Auto) % Neut % (Auto) % Lymph % (Auto) % Winn % (Auto) % Eos % (Auto) % Baso % (Auto) % Immature Gran # (Auto) (0.00-0.02) K/uL Neut # (Auto) (1.4-6.5) K/uL Lymph # (Auto) (1.2-3.4) K/uL Winn # (Auto) (0.11-0.59) K/uL Eos # (Auto) (0-0.5) K/uL Baso # (Auto) (0-0.2) K/uL PT (9.0-12.0) Seconds INR (0.9-1.1) APTT (21.0-31.0) Seconds PTT Ratio Sodium (136-145) mmol/L Potassium (3.5-5.1) mmol/L Chloride (98-107) mmol/L Carbon Dioxide (21-32) mmol/L Anion Gap (3-11) BUN (7-18) mg/dl Creatinine (0.6-1.4) mg/dl Est Cr Clr Drug Dosing ml/min Est GFR ( Amer) Est GFR (Non-Af Amer) BUN/Creatinine Ratio (10-20) Glucose (70-99) mg/dl Osmolality (280-300) mOsm/kg Calcium (8.5-10.1) mg/dl Total Bilirubin (0.2-1) mg/dl AST (15-37) U/L ALT (12-78) U/L Alkaline Phosphatase (45-117) U/L Total Creatine Kinase (39-308) U/L Troponin I (0-0.045) ng/ml Total Protein (6.4-8.2) gm/dl Albumin (3.4-5.0) gm/dl Globulin (2.5-4.0) gm/dl Albumin/Globulin Ratio (0.9-2) Lipase (73-393) U/L Urine Color Urine Appearance (Clear) Urine pH (4.5-7.5) Ur Specific Daisy (1.000-1.030) Urine Protein (Negative) Urine Glucose (UA) (Negative) Urine Ketones (Negative) Urine Blood (Negative) Urine Nitrite (Negative) Urine Bilirubin (Negative) Urine Urobilinogen (Negative) Ur Leukocyte Esterase (Negative) Urine WBC (Auto) (0-5) /hpf Urine RBC (Auto) (0-4) /hpf U Hyaline Cast (Auto) (0-5) /lpf U Epithel Cells (Auto) (0-5) /lpf Urine Bacteria (Auto) (Negative) Urine Osmolality (500-800) mOsm/kg Ur Random Creatinine mg/dl Ur Random Sodium 70 mmol/L 05/31/18 05/31/18 06/01/18 Range/Units 14:30 14:30 08:43 WBC 5.62 (4.8-10.8) K/uL RBC 4.06 L (4.7-6.1) M/uL Hgb 11.8 L (14.0-18.0) g/dL Hct 34.1 L (42-52) % MCV 84.0 (80-100) fL MCH 29.1 (25-34) pg MCHC 34.6 (32-36) g/dL RDW Std Deviation 41.9 (36.4-46.3) fL RDW Coeff of Omar 13.7 (11.5-14.5) % Plt Count 132 (130-400) K/uL MPV 11.7 H (7.4-10.4) fL Immature Gran % (Auto) % Neut % (Auto) % Lymph % (Auto) % Winn % (Auto) % Eos % (Auto) % Baso % (Auto) % Immature Gran # (Auto) (0.00-0.02) K/uL Neut # (Auto) (1.4-6.5) K/uL Lymph # (Auto) (1.2-3.4) K/uL Winn # (Auto) (0.11-0.59) K/uL Eos # (Auto) (0-0.5) K/uL Baso # (Auto) (0-0.2) K/uL PT (9.0-12.0) Seconds INR (0.9-1.1) APTT (21.0-31.0) Seconds PTT Ratio Sodium (136-145) mmol/L Potassium (3.5-5.1) mmol/L Chloride (98-107) mmol/L Carbon Dioxide (21-32) mmol/L Anion Gap (3-11) BUN (7-18) mg/dl Creatinine (0.6-1.4) mg/dl Est Cr Clr Drug Dosing ml/min Est GFR ( Amer) Est GFR (Non-Af Amer) BUN/Creatinine Ratio (10-20) Glucose (70-99) mg/dl Osmolality (280-300) mOsm/kg Calcium (8.5-10.1) mg/dl Total Bilirubin (0.2-1) mg/dl AST (15-37) U/L ALT (12-78) U/L Alkaline Phosphatase (45-117) U/L Total Creatine Kinase (39-308) U/L Troponin I (0-0.045) ng/ml Total Protein (6.4-8.2) gm/dl Albumin (3.4-5.0) gm/dl Globulin (2.5-4.0) gm/dl Albumin/Globulin Ratio (0.9-2) Lipase (73-393) U/L Urine Color Yellow Urine Appearance Clear (Clear) Urine pH 5.0 (4.5-7.5) Ur Specific Daisy 1.016 (1.000-1.030) Urine Protein Negative (Negative) Urine Glucose (UA) Negative (Negative) Urine Ketones Negative (Negative) Urine Blood 1+ H (Negative) Urine Nitrite Negative (Negative) Urine Bilirubin Negative (Negative) Urine Urobilinogen Negative (Negative) Ur Leukocyte Esterase Negative (Negative) Urine WBC (Auto) 1-5 (0-5) /hpf Urine RBC (Auto) 0-4 (0-4) /hpf U Hyaline Cast (Auto) 1-5 (0-5) /lpf U Epithel Cells (Auto) 5-10 H (0-5) /lpf Urine Bacteria (Auto) Negative (Negative) Urine Osmolality (500-800) mOsm/kg Ur Random Creatinine 84.2 mg/dl Ur Random Sodium 70 mmol/L 06/01/18 Range/Units 08:43 WBC (4.8-10.8) K/uL RBC (4.7-6.1) M/uL Hgb (14.0-18.0) g/dL Hct (42-52) % MCV (80-100) fL MCH (25-34) pg MCHC (32-36) g/dL RDW Std Deviation (36.4-46.3) fL RDW Coeff of Omar (11.5-14.5) % Plt Count (130-400) K/uL MPV (7.4-10.4) fL Immature Gran % (Auto) % Neut % (Auto) % Lymph % (Auto) % Winn % (Auto) % Eos % (Auto) % Baso % (Auto) % Immature Gran # (Auto) (0.00-0.02) K/uL Neut # (Auto) (1.4-6.5) K/uL Lymph # (Auto) (1.2-3.4) K/uL Winn # (Auto) (0.11-0.59) K/uL Eos # (Auto) (0-0.5) K/uL Baso # (Auto) (0-0.2) K/uL PT (9.0-12.0) Seconds INR (0.9-1.1) APTT (21.0-31.0) Seconds PTT Ratio Sodium 135 L (136-145) mmol/L Potassium 4.4 (3.5-5.1) mmol/L Chloride 101 (98-107) mmol/L Carbon Dioxide 30 (21-32) mmol/L Anion Gap 5.0 (3-11) BUN 41 H (7-18) mg/dl Creatinine 1.63 H D (0.6-1.4) mg/dl Est Cr Clr Drug Dosing 61.5 ml/min Est GFR ( Amer) 53.0 Est GFR (Non-Af Amer) 45.8 BUN/Creatinine Ratio 25.0 H (10-20) Glucose 126 H (70-99) mg/dl Osmolality (280-300) mOsm/kg Calcium 8.3 L (8.5-10.1) mg/dl Total Bilirubin 1.3 H (0.2-1) mg/dl AST 91 H (15-37) U/L ALT 37 (12-78) U/L Alkaline Phosphatase 68 (45-117) U/L Total Creatine Kinase 1871 H (39-308) U/L Troponin I (0-0.045) ng/ml Total Protein 7.0 (6.4-8.2) gm/dl Albumin 3.8 (3.4-5.0) gm/dl Globulin 3.2 (2.5-4.0) gm/dl Albumin/Globulin Ratio 1.2 (0.9-2) Lipase (73-393) U/L Urine Color Urine Appearance (Clear) Urine pH (4.5-7.5) Ur Specific Daisy (1.000-1.030) Urine Protein (Negative) Urine Glucose (UA) (Negative) Urine Ketones (Negative) Urine Blood (Negative) Urine Nitrite (Negative) Urine Bilirubin (Negative) Urine Urobilinogen (Negative) Ur Leukocyte Esterase (Negative) Urine WBC (Auto) (0-5) /hpf Urine RBC (Auto) (0-4) /hpf U Hyaline Cast (Auto) (0-5) /lpf U Epithel Cells (Auto) (0-5) /lpf Urine Bacteria (Auto) (Negative) Urine Osmolality (500-800) mOsm/kg Ur Random Creatinine mg/dl Ur Random Sodium mmol/L Imaging Data Attestation: I personally reviewed and interpreted this imaging study as follows: Radiologist's Impression: Radiology results as stated below per my review and the radiologist's interpretation: XR chest 1V portable CLINICAL HISTORY: Atypical chest pain COMPARISON STUDY: 12/15/2017 FINDINGS: The heart is mildly enlarged. There is suspected underlying emphysema. There is no failure. There is no focal pulmonary consolidation. There are no pleural effusions. There is an azygos fissure.[ IMPRESSION: No active disease in the chest. Electronically signed by: John Rutherford M.D. 05/31/2018 12:47 PM Dictated: 05/31/18 1247 Transcribed: 05/31/[address] OF THE CERVICAL SPINE CLINICAL HISTORY: Severe posterior neck pain COMPARISON STUDY: No previous studies for comparison. CT DOSE: 277.48 mGy.cm TECHNIQUE: CT scan of the cervical spine was performed from the skull base to the thoracic inlet. Images are reviewed in the axial, sagittal, and coronal planes. IV contrast was not administered for this examination. A dose lowering technique was utilized adhering to the principles of ALARA. 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 There are C1-2 arthritic changes. There are no acute fractures. The prevertebral soft tissues are normal. No fractures or subluxations are visualized. There are multilevel degenerative changes most pronounced at the C5-6 level. IMPRESSION: 1. No acute fractures or traumatic subluxations 2. Degenerative changes at C5-6 level with posterior osteophytic spurring 3. 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 Electronically signed by: John Rutherford M.D. 05/31/2018 1:47 PM Dictated: 05/31/18 1341 Transcribed: 05/31/18 1341 ECG Data Attestation: I personally reviewed and interpreted this ECG as follows: Indication: other (Neck Pain ) Rate (beats per minute): 68 Rhythm: normal sinus Findings: + other (PACs noted, No acute ST segments ) Comparison ECG Date: from (12-03-17) Change: no significant change Blood Pressure Blood Pressure Findings: Normal blood pressure MDM Narrative The patient is a 57-year-old male who presented to the emergency department with multiple complaints. The patient was complaining of mostly upper neck pain. He has been taking NSAIDs recently but also takes Lasix. The patient was albino lina with pain medication in the emergency department. I discussed the patient's laboratory and radiographic studies with him. I was concerned that this could represent a angina equivalent. For this reason further laboratory and radiographic studies were obtained other than just the cervical spine CAT scan. He was found to have signs of acute renal failure and laboratory studies. I discussed the patient's condition with him. I also discussed his case with the on-call [facility] hospitalist group. They have agreed to evaluate the patient in the emergency department for further management and disposition. The patient was treated with IV fluids. Impression & Plan Acute renal failure, Acute hyponatremia, Cervical strain, Cervical arthritis Discharge Plan Visit Data *Final* Discharge Date/Time: 05/31/18 16:08 Chief Complaint: Neck Injury/Pain Stated Complaint: PAIN IN BACK OF NECK ED Provider: Obi Ruby Discharge Problem: Acute renal failure, Acute hyponatremia, Cervical strain, Cervical arthritis Patient Disposition: Admitted As Inpatient Discharge Instructions Interventions: ED Discharge Assessment Last Done: 05/31/18 16:08 Discharge Problem: Acute renal failure Qualifiers: Acute renal failure type: unspecified Qualified Code(s): N17.9 - Acute kidney failure, unspecified Cervical strain Qualifiers: Encounter type: initial encounter Qualified Code(s): S16.1XXA - Strain of muscle, fascia and tendon at neck level, initial encounter The scribe's documentation has been prepared under my direction and personally reviewed by me in its entirety. I confirm that the note above accurately reflec ts all work, treatment, procedures, and medical decision making performed by me.
[2018-05-31] MEDS: SODIUM CHLORIDE 0.9% 1000ML 1,000 ML IV SCH (18:22)
[2018-05-31 18:41] LABS: Creatinine Urine Random 84.2 mg/dl
[2018-05-31] MEDS ORDERED: ATORVASTATIN 20 MG TAB PO SCH (21:00)
[2018-05-31] MEDS: MONTELUKAST SODIUM 10 MG TABLET PO SCH (21:17)
[2018-05-31] MEDS: HEPARIN SOD 5,000 UNIT/0.5 ML VIAL SQ SCH (21:18)
[2018-05-31] MEDS ORDERED: INFLUENZA VIRUS QUAD VACCINE 0.5 ML SYR IM ONE (21:30)
[2018-05-31] MEDS ORDERED: INFLUENZA ADMINISTRATION CHARGE ONE (21:30)
[2018-05-31 23:04] LABS: Creatine Kinase 3300 U/L (39-308)
[2018-05-31] MEDS: DICLOFENAC SOD 1% GEL 100 GM TUBE EXT SCH (23:25)
[2018-06-01] MEDS: SODIUM CHLORIDE 0.9% 1000ML 1,000 ML IV SCH ×3 (04:56→21:13)
[2018-06-01] MEDS ORDERED: Nursing to Pharmacy Communication ONE (05:50)
[2018-06-01] MEDS: HEPARIN SOD 5,000 UNIT/0.5 ML VIAL SQ SCH ×3 (06:13→21:12)
[2018-06-01] MEDS: ALBUTEROL HFA 8 GM INHALER INH PRN ×3 (07:11→17:25)
--- NOTE | 2018-06-01 07:15 | Ultrasound Report ---
RENAL ULTRASOUND HISTORY: Flank pain. R/o obstruction/hydronephrosis COMPARISON: Abdomen and pelvis CT 05/15/2018. FINDINGS: Right kidney: 10.3 cm. No hydronephrosis. Normal corticomedullary differentiation and cortical thickn ess. Left kidney: 11.3 cm. No hydronephrosis. Normal corticomedullary differentiation and cortical thickne ss. Bladder: No bladder wall thickening. The bilateral ureteral jets were not identified. IMPRESSION: Normal renal ultrasound. Electronically signed by: Jersey Florence M.D. 06/01/2018 7:14 AM
[2018-06-01] MEDS: METOPROLOL SUCC 25MG EXT REL TAB PO SCH (08:59)
[2018-06-01] MEDS: dilTIAZem HCL 120 MG CAPCR PO SCH (08:59)
[2018-06-01] MEDS: DICLOFENAC SOD 1% GEL 100 GM TUBE EXT SCH ×4 (09:00→21:13)
[2018-06-01] MEDS ORDERED: PANTOprazole 40 MG TAB PO SCH (09:00)
[2018-06-01 09:07] LABS: Hematocrit (blood only) 34.1 % (42-52); Hemoglobin 11.8 g/dL (14.0-18.0); Mean Corpuscular Hgb Conc 34.6 g/dL (32-36); Mean Platelet Volume 11.7 fL (7.4-10.4); Platelet Count 132 K/uL (130-400); RDW Coefficient of Variation 13.7 % (11.5-14.5); RDW Standard Deviation 41.9 fL (36.4-46.3); Red Blood Count 4.06 M/uL (4.7-6.1); White Blood Count 5.62 K/uL (4.8-10.8)
[2018-06-01 09:42] LABS: Albumin Level 3.8 gm/dl (3.4-5.0); Calcium 8.3 mg/dl (8.5-10.1); Creatinine Clr Calc Pharmacy 61.5 ml/min; Est GFR (Non-African American) 45.8; Potassium 4.4 mmol/L (3.5-5.1)
[2018-06-01 09:59] LABS: Albumin Globulin Ratio 1.2 (0.9-2); Bilirubin,Total 1.3 mg/dl (0.2-1); Globulin 3.2 gm/dl (2.5-4.0)
--- NOTE | 2018-06-01 16:48 | Hospitalist Progress Note ---
Date of Service June 01, 2018 Assessment & Plan (1) LATOSHA (acute kidney injury): - Creatinine trending down from 3.67 to 1.63 - Continue to hold on nephrotoxins including lisinopril, ibuprofen, sulindac, Maxzide. - continue NSS at 100 ml/hr - Weight loss as per HPI likely partial dehydration and pharmacotherapy. Monitor with daily weights. - Voltaren gel for pain. - Renal US without abnormality (2) Rhabdomyolysis: Creat kinase 3300 on admission, decreased to 1871 today. Continue IVF, repeat level tomorrow. (3) Elevated bilirubin: Biliruben 1.3 today with RUQ tenderness as well as elevated AST at 91- gallbladder US Repeat CMP in am (4) Neck pain: - Appears to be musculoskeletal as this is reproducible on exam - ice, rest, tylenol and voltaren gel for pain. No NSAIDs with LATOSHA as above. - pain is improving, no radiculopathy - CT cervical spine: 1. No acute fractures or traumatic subluxations 2. Degenerative changes at C5-6 level with posterior osteophytic spurring 3. 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 (5) COPD (chronic obstructive pulmonary disease): - Last PFTs completed in Dec 2017, demonstratated mild obstructive pattern, could not exclude coexisting restriction. - Continue proAir, dulera, spiriva. Has outpt home sleep study which r/o JULY. - follows with Karla Kamara as outpt. - Stable (6) HTN (hypertension): - Continue metoprolol succinate 25 mg daily, diltiazem 120 mg daily - Hold lisinopril, lasix (7) HLD (hyperlipidemia): - hold atorvastatin due to rhabdo (8) Hiatal hernia: - noted. Continue PPI and H2 mitch - pt with complaints of bloating and distension which has been ongoing x 6 mo. (9) Esophageal dysphagia: - Stable, continue PPI and H2 mitch. Dentures in for all meals. (10) Overweight (BMI 25.0-29.9): (11) Bilateral lower extremity edema: - Hold lasix - follow (12) Venous insufficiency: - As above. (13) PAC (premature atrial contraction): - Hx of such, stable. - EKG reviewed showing PACs. No acute findings (14) Constipation: Sennakot (15) DVT prophylaxis: - Teds, scds, heparin subq Subjective Mr. Marcos reports some abdominal tenderness and constipation and that he gets "vicki horse" like pain in his belly which he has been to a GI specialist for in the past. He has a chronic cough that has gone on for many months which he has also had worked up in the past. It is non productive. His neck pain is improving. No radicular pain in shoulders or arms, no weakness. Review of Systems All systems reviewed & are unremarkable except as noted in HPI & below Physical Exam Vital Signs (Past 24 Hours): Last Vital Signs Temp 36.8 C 06/01/18 16:14 Pulse 73 06/01/18 16:14 Resp 18 06/01/18 16:14 BP 100/63 06/01/18 16:14 Pulse Ox 97 06/01/18 16:14 Physical Exam: General: no distress Eyes: normal inspection, PERLL Respiratory: chest non tender, clear to auscultation, normal breath sounds, no respiratory distress, no accessory muscle use Cardiac: regular rate and rhythm, no rub or gallop, no murmur, no edema, no jvd GI/: active bowel sounds, right upper quadrant very tender, mild tenderness diffusely over abdomen Extremities: normal range of motion, left posterior neck tender to palpation Neuro/Psych: alert and oriented x 3, normal mood and affect Skin: normal color, dry Results & Data Laboratory Results Abnormal lab results 05/31/18 06/01/18 06/01/18 Range/Units 12:50 08:43 08:43 RBC 4.06 L (4.7-6.1) M/uL Hgb 11.8 L (14.0-18.0) g/dL Hct 34.1 L (42-52) % MPV 11.7 H (7.4-10.4) fL Sodium 135 L (136-145) mmol/L BUN 41 H (7-18) mg/dl Creatinine 1.63 H D (0.6-1.4) mg/dl BUN/Creatinine Ratio 25.0 H (10-20) Glucose 126 H (70-99) mg/dl Calcium 8.3 L (8.5-10.1) mg/dl Total Bilirubin 1.3 H (0.2-1) mg/dl AST 91 H (15-37) U/L Total Creatine Kinase 3300 H 1871 H (39-308) U/L
[2018-06-01] MEDS: DOCUSATE SODIUM/SENNA 50/8.6MG TAB PO SCH (17:24)
[2018-06-01] MEDS: MONTELUKAST SODIUM 10 MG TABLET PO SCH (21:12)
[2018-06-02] MEDS: HEPARIN SOD 5,000 UNIT/0.5 ML VIAL SQ SCH ×2 (06:10→13:05)
[2018-06-02] MEDS: SODIUM CHLORIDE 0.9% 1000ML 1,000 ML IV SCH (06:12)
[2018-06-02] MEDS: ALBUTEROL HFA 8 GM INHALER INH PRN (06:13)
--- NOTE | 2018-06-02 06:48 | Ultrasound Report ---
ADDENDUM Comparison is made to CT abdomen and pelvis study from 05/15/2018. No right adrenal gland lesion was se en on that study. Upon further review of the case, the marketing database consultant findings of the abdominal right up per quadrant interposed between the superior pole right kidney and posterior right hepatic lobe is li adrienne secondary to normal hepatic tissue. Electronically signed by: Ralph Corcoran M.D. 06/09/2018 2:16 PM ORIGINAL REPORT US gallbladder HISTORY: 57 years-old Male elevated bili, upper right quadrant tenderness acute right upper quadrant abdominal pain COMPARISON: Renal ultrasound 06/01/2018, CT abdomen and pelvis 11/26/2017 TECHNIQUE: Multiple real-time sonographic images of the abdominal right upper quadrant were obtained assessing grayscale appearance and color flow FINDINGS: Pancreas is mostly obscured by bowel gas. Liver demonstrates no evidence of cirrhosis, or intrahepati c delayed ductal dilation. An area about the june hepatis is measured up to 2.8 cm suggestive of por ta hepatis fat with increased echogenicity. There is a hypoechoic lesion interposed between the poste rior right hepatic lobe and superior pole right kidney measuring 2.4 x 2.5 x 2.8 cm. No internal flow within this structure. Gallbladder wall is thickened measuring up to 3.2 mm. Common bile duct is normal, 3.6 mm. No cholelit hiasis or pericholecystic fluid. Sonographic Anderson sign reported as negative. Imaged right kidney is unremarkable without hydronephrosis. IMPRESSION: 1. Nonspecific mild gallbladder wall thickening without cholelithiasis or pericholecystic fluid. 2. No biliary ductal dilation. 3. Indeterminate 2.8 cm hypoechoic structure superior to the right kidney within the region of the ri ght adrenal gland. Attention at follow-up recommended. The above report was generated using voice recognition software. It may contain grammatical, syntax o r spelling errors. Electronically signed by: Ralph Corcoran M.D. 06/02/2018 6:47 AM
[2018-06-02 07:12] LABS: Hematocrit (blood only) 31.9 % (42-52); Mean Corpuscular Hgb Conc 34.5 g/dL (32-36); Mean Corpuscular Volume 85.3 fL (80-100); Mean Platelet Volume 11.5 fL (7.4-10.4); Platelet Count 121 K/uL (130-400); RDW Coefficient of Variation 13.6 % (11.5-14.5); RDW Standard Deviation 42.5 fL (36.4-46.3); Red Blood Count 3.74 M/uL (4.7-6.1); White Blood Count 5.33 K/uL (4.8-10.8)
[2018-06-02 07:44] LABS: Albumin Globulin Ratio 1.1 (0.9-2); Albumin Level 3.3 gm/dl (3.4-5.0); BUN Creatinine Ratio 20.1 (10-20); Bilirubin,Total 1.1 mg/dl (0.2-1); Calcium 7.8 mg/dl (8.5-10.1); Creatinine Clr Calc Pharmacy 87.9 ml/min; Est GFR (African American) 81.7; Est GFR (Non-African American) 70.5; Globulin 2.9 gm/dl (2.5-4.0); Potassium 4.1 mmol/L (3.5-5.1); Total Protein 6.2 gm/dl (6.4-8.2)
--- NOTE | 2018-06-02 08:36 | Hospitalist Progress Note ---
Date of Service June 02, 2018 Assessment & Plan (1) LATOSHA (acute kidney injury): - Creatinine trending down from 3.67 to 1.63 - Continue to hold on nephrotoxins including lisinopril, ibuprofen, sulindac, Maxzide. - continue NSS at 100 ml/hr - Weight loss as per HPI likely partial dehydration and pharmacotherapy. Monitor with daily weights. - Voltaren gel for pain. - Renal US without abnormality (2) Rhabdomyolysis: Creat kinase 3300 on admission, decreased to 1871 today. Continue IVF, repeat level tomorrow. (3) Elevated bilirubin: Bili trending down to 1.1 today Gallbladder US - IMPRESSION: 1. Nonspecific mild gallbladder wall thickening without cholelithiasis or pericholecystic fluid. 2. No biliary ductal dilation. 3. Indeterminate 2.8 cm hypoechoic structure superior to the right kidney within the region of the right adrenal gland. Attention at follow-up recommended. (4) Neck pain: - Appears to be musculoskeletal as this is reproducible on exam - ice, rest, tylenol and voltaren gel for pain. No NSAIDs with LATOSHA as above. - pain is improving, no radiculopathy - CT cervical spine: 1. No acute fractures or traumatic subluxations 2. Degenerative changes at C5-6 level with posterior osteophytic spurring 3. 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 (5) COPD (chronic obstructive pulmonary disease): - Last PFTs completed in Dec 2017, demonstratated mild obstructive pattern, could not exclude coexisting restriction. - Continue proAir, dulera, spiriva. Has outpt home sleep study which r/o JULY. - follows with Karla Kamara as outpt. - Stable (6) HTN (hypertension): - Continue metoprolol succinate 25 mg daily, diltiazem 120 mg daily - Hold lisinopril, lasix (7) HLD (hyperlipidemia): - hold atorvastatin due to rhabdo (8) Hiatal hernia: - noted. Continue PPI and H2 mitch - pt with complaints of bloating and distension which has been ongoing x 6 mo. (9) Esophageal dysphagia: - Stable, continue PPI and H2 mitch. Dentures in for all meals. (10) Overweight (BMI 25.0-29.9): (11) Bilateral lower extremity edema: - Hold lasix - follow (12) Venous insufficiency: - As above. (13) PAC (premature atrial contraction): - Hx of such, stable. - EKG reviewed showing PACs. No acute findings (14) Constipation: Sennakot (15) DVT prophylaxis: - Teds, scds, heparin subq Physical Exam Vital Signs (Past 24 Hours): Last Vital Signs Temp 36.6 C 06/02/18 08:06 Pulse 60 06/02/18 08:06 Resp 18 06/02/18 08:06 BP 118/68 06/02/18 08:06 Pulse Ox 97 06/02/18 08:06
[2018-06-02] MEDS: METOPROLOL SUCC 25MG EXT REL TAB PO SCH (08:50)
[2018-06-02] MEDS: DICLOFENAC SOD 1% GEL 100 GM TUBE EXT SCH ×2 (08:51→12:48)
[2018-06-02] MEDS: DOCUSATE SODIUM/SENNA 50/8.6MG TAB PO SCH (08:51)
[2018-06-02] MEDS: dilTIAZem HCL 120 MG CAPCR PO SCH (08:51)
[2018-06-02] MEDS ORDERED: BISACODYL 5 MG TABEC PO ONE (10:58)
[2018-06-02] MEDS ORDERED: ALBUT/IPRATROP 3MG/0.5MG NEB 3 ML VIAL NEB ONE (10:58)
--- NOTE | 2018-06-02 13:39 | Discharge Summary ---
Date of Service June 02, 2018 Admission HPI Per Admitting Provider This is a 57 yo M with PMHx of HTN, HLD, COPD, hiatal hernia, tubular adenoma of the colon, gastritis, leg swelling, hepatic steatosis, diverticulitis, PACs, venous insufficiency, who presents with worsening neck pain x 2 days. 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 Patient reports increased overhead lifting and strenuous activities at his current job compared to previously. He has been using ibuprofen 600 mg in the morning and night along with heat to help alleviate pain. Patient notes that he has been eating and drinking about at his baseline, however admits to not drinking as much water while he is busy at work. Patient has been working 6-7 hours a day for the past 2 weeks. He is able to move his neck from side to side and up and down, however looking to the left more than ~45 degrees causes pain. He denies any recent fevers, chills, sweats, chest pain, shortness of breath. He reports no recent leg swelling and that his weight has dropped 13 lbs in the past 2 weeks from his home scale compared to recent outpt office visit. While being assessed in the ER, the patient was found to have an elevated creatinine of 3.67 compared to his baseline of 0.83-1.00 last November. His BUN is also elevated at 75. Patient denies any changes in urinary habits, no dysuria, urine is clear yellow, no increased frequency. Patient notes a chronic abdominal distention and states he has a lot of gas. Patient has been taking lansoprazole and ranitidine but feels this is not necessarily helping. Pt notes he has been taking routine lasix 40 mg daily, lisinopril 10 mg daily, sulindac 200 mg BID, Maxzide 25mg daily as well as the ibuprofen mentioned earlier. Principal Diagnosis LATOSHA Discharge Exam Constitutional WD/WN, vitals as above Neck improvinig tenderness to palpation left neck Respiratory normal respiratory effort, lungs clear to auscultation Cardiovascular RRR, no murmur, no edema Gastrointestinal (Abdomen) normal bowel sounds, soft, nontender, no hepatosplenomegaly Musculoskeletal no cyanosis or clubbing, extremities motor strength 5/5 no numbness or tingling or weakness in arms bilaterally Skin no rashes, warm and dry Neurologic moves all extremities and awake Psychiatric A+Ox3, euthymic affect Discharge Data Allergies Allergy/AdvReac Type Severity Reaction Status Date / Time No Known Allergies Allergy Mild Verified 02/18/18 14:04 Consultations 05/31/18 14:38 ED Decision to Admit Stat 05/31/18 16:46 Consult Case Management - Discharge Planning Routine Ordered Studies 05/31/18 12:29 CT cervical spine wo con Stat 06/01/18 US renal/blad retro comp Routine 06/01/18 15:12 US gallbladder Routine Hospital Course (1) LATOSHA (acute kidney injury): - Creatinine trending down from 3.67 to 1.14 with IVF - Continue to hold on nephrotoxins including lisinopril, ibuprofen, sulindac, Maxzide - hold for discharge, restart at discretion of pcp. Will instruct patient to check pressures at home until seen. - Weight loss as per HPI likely partial dehydration and pharmacotherapy. - Voltaren gel for pain while inpatient - Renal US without abnormality (2) Rhabdomyolysis: Creat kinase 3300 on admission, decreased to 756 today with IVF. Encouraged to continue to take in plenty of fluids at home (3) Elevated bilirubin: Bili trending down to 1.1 today Gallbladder US - IMPRESSION: 1. Nonspecific mild gallbladder wall thickening without cholelithiasis or pericholecystic fluid. 2. No biliary ductal dilation. 3. Indeterminate 2.8 cm hypoechoic structure superior to the right kidney within the region of the right adrenal gland. Attention at follow-up recommended. No overt symptoms like right upper quadrant tenderness or nausea (4) Neck pain: - Appears to be musculoskeletal as this is reproducible on exam - ice, rest, tylenol and voltaren gel for pain. No NSAIDs with LATOSHA as above. - pain is improving, no radiculopathy - CT cervical spine: 1. No acute fractures or traumatic subluxations 2. Degenerative changes at C5-6 level with posterior osteophytic spurring 3. 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 (5) COPD (chronic obstructive pulmonary disease): - Last PFTs completed in Dec 2017, demonstratated mild obstructive pattern, could not exclude coexisting restriction. - Continue proAir, dulera, spiriva. Has outpt home sleep study which r/o JULY. - follows with Karla Kamara as outpt. - Stable (6) HTN (hypertension): - Continue metoprolol succinate 25 mg daily, diltiazem 120 mg daily - Hold lisinopril, lasix - restart after ok with pcp (7) HLD (hyperlipidemia): - hold atorvastatin due to rhabdo - restart after ok with pcp (8) Hiatal hernia: - noted. Continue PPI and H2 mitch - pt with complaints of bloating and distension which has been ongoing x 6 mo. (9) Esophageal dysphagia: - Stable, continue PPI and H2 mitch. Dentures in for all meals. (10) Overweight (BMI 25.0-29.9): (11) Bilateral lower extremity edema: - Hold lasix - follow - no history of heart failure per patient (12) Venous insufficiency: - As above. (13) PAC (premature atrial contraction): - Hx of such, stable. - EKG reviewed showing PACs. No acute findings (14) Constipation: Sennakot (15) DVT prophylaxis: - Teds, scds, heparin subq Total Time Total Time Spent Total Time Spent (In Minutes): greater than 30 minutes Discharge Plan Discharge Items Patient Disposition: Home - Self-Care Reason For Visit: LATOSHA Discharge Diagnosis: Acute kidney injury Discharge Goals: Decrease discomfort, Improve disease control and Improve function Activity: Per 'Additional Instructions' section Activity Comment: gradually increase your activity as tolerated Non-emergency contact: Primary Care Provider Call non-emergency contact if: you have any medication questions, your symptoms worsen, your pain is not controlled and your pain is worsening Follow-up/Referrals: Roslyn Pennington [Primary Care Provider] - 06/09/18 11:50 am (Please, follow up with Dr. Pennington on FridayJune 09 at 11:50 am. *If you need to change this appointment, call the office at [phone].) Diet: Regular Addtl Provider Instructions: Increase your activity gradually as tolerated. Make sure to stay well hydrated and drink plenty of water. You will also need to make sure you are drinking water throughout the day when you return to work. I have held your atorvastatin, lasix, ibuprofen, sulindac and triamterene-hctz until you see your primary care provider as these medications can be hard on your kidneys. Please take your blood pressure daily at home and let your doctor know if you are seeing blood pressures greater than 150 for the top number or 90 for the bottom number so that they can restart your medications earlier if necessary. If you do not have a home blood pressure machine, they can be purchased at pharmacies. You can take Tylenol for pain relief. Please follow up with your primary care provider within a week. You were admitted with an acute kidney injury because of dehydration. Your kidneys are nearly recovered back to your normal function and will likely continue to improve as you rest and take in plenty of fluids. You also had a condition called rhabdomyolysis which is the breakdown of muscle due to, in your case, overexertion and worsened by dehydration. This can also affect the kidneys. I have enclosed some information on rhabdomyolysis and warning signs to look for but at this point you are recovering and your labs are returning back to normal. Prescriptions: Continued ranitidine HCl 150 mg Tablet 150 mg PO HS RF: 0 lisinopril 10 mg Tablet 10 mg PO QAM RF: 0 lansoprazole 30 mg Capsule,Delayed Release(Dr/Ec) 30 mg PO QAM RF: 0 montelukast [Singulair] 10 mg Tablet 10 mg PO PM RF: 0 zolpidem [Ambien] 5 mg Tablet 1 - 2 tab PO HS PRN (Reason: Sleep) RF: 0 albuterol sulfate [ProAir HFA] 90 mcg/actuation Hfa Aerosol Inhaler 2 puff INHALATION QID PRN (Reason: Shortness Of Breath) RF: 0 Dulera 100-5 mcg/actuation Hfa Aerosol Inhaler 2 puff INHALATION Q12H RF: 0 diltiazem HCl [Cartia XT] 120 mg Capsule,Extended Release 24hr 120 mg PO DAILY RF: 0 metoprolol succinate [Toprol XL] 25 mg Tablet Extended Release 24 Hr 25 mg PO DAILY RF: 0 Discontinued furosemide [Lasix] 20 mg Tablet 40 mg PO QAM RF: 0 triamterene-hydrochlorothiazid [Maxzide-25mg] 37.5-25 mg Tablet 1 tab PO DAILY RF: 0 sulindac 200 mg Tablet 200 mg PO BID RF: 0 ibuprofen 200 mg Tablet 600 mg PO BID RF: 0 atorvastatin 20 mg tablet 20 mg PO HS RF: 0 Stand-Alone Forms: [facility], Work/School Release (Inpt) Nida/Other Patient Handouts: Rhabdomyolysis Discharge Orders: Discharge Order (Routine); Ordered 06/02/18 Ordered By: Roberta Grimaldo Admission Data Admit Date/Time: 05/31/18 15:11 Attending Provider: Wilian Mojica Admit Provider: Iliana Pro Primary Care Provider: Roslyn Pennington Other Providers: Iliana Pro Service: Medical Other Interventions: Discharge Summary Assessment (RN) Last Done: 06/02/18 11:58
== END 2018-06-02 15:02 | disposition home or self-care (01) | DRG 683 ==
LOC: ED 11:21 → SUATTDRO 15:11 → 4W 15:11

== ENCOUNTER 2021-01-08 04:48 | Observation (INO) ==
[2021-01-08] MEDS ORDERED: ONDANSETRON INJ 2 MG/ML 2 ML VIAL IV STA (05:10)
[2021-01-08] MEDS ORDERED: SODIUM CHLORIDE 0.9% 1000ML 1,000 ML IV SCH (05:15)
[2021-01-08] MEDS: MoRPHine SULFATE 4 MG/ML 1 ML CARP\\VIAL IV PRN ×2 (05:41→07:14)
[2021-01-08 05:47] LABS: Basophils # (auto) 0.01 K/uL (0-0.2); Basophils % (auto) 0.1 %; Eosinophils # (auto) 0.01 K/uL (0-0.5); Eosinophils % (auto) 0.1 %; Hematocrit (blood only) 37.9 % (42-52); Hemoglobin 12.9 g/dL (14.0-18.0); Immature Granulocytes # (auto) 0.02 K/uL (0.00-0.02); Immature Granulocytes % (auto) 0.2 %; Lymphocytes # (auto) 0.85 K/uL (1.2-3.4); Lymphocytes % (auto) 8.1 %; Mean Corpuscular Hemoglobin 29.5 pg (25-34); Mean Corpuscular Volume 86.7 fL (80-100); Mean Platelet Volume 11.5 fL (7.4-10.4); Monocytes # (auto) 0.95 K/uL (0.11-0.59); Monocytes % (auto) 9.1 %; Neutrophils # (auto) 8.63 K/uL (1.4-6.5); Neutrophils % (auto) 82.4 %; Platelet Count 130 K/uL (130-400); RDW Coefficient of Variation 13.4 % (11.5-14.5); RDW Standard Deviation 42.9 fL (36.4-46.3); Red Blood Count 4.37 M/uL (4.7-6.1); White Blood Count 10.47 K/uL (4.8-10.8)
[2021-01-08 06:03] LABS: Partial Thromboplastin Ratio 0.9; Partial Thromboplastin Time 23.6 Seconds (21.0-31.0); Prothrombin Time 10.3 Seconds (9.0-12.0)
[2021-01-08 06:08] LABS: Alanine Aminotransferase 21 U/L (12-78); Albumin Level 3.3 gm/dl (3.4-5.0); Aspartate Aminotransferase 27 U/L (15-37); BUN Creatinine Ratio 11.6 (10-20); Blood Urea Nitrogen 10 mg/dl (7-18); Calcium 8.5 mg/dl (8.5-10.1); Carbon Dioxide 25 mmol/L (21-32); Chloride 102 mmol/L (98-107); Creatinine Clr Calc Pharmacy 95.5 ml/min; Est GFR (Non-African American) 92.3 ml/min; Glucose 178 mg/dl (70-99); Lipase 119 U/L (73-393); Sodium 134 mmol/L (136-145)
[2021-01-08 06:10] LABS: Albumin Globulin Ratio 0.9 (0.9-2); Alkaline Phosphatase 87 U/L (45-117); Bilirubin,Total 2.6 mg/dl (0.2-1); Globulin 3.7 gm/dl (2.5-4.0); Troponin I < 0.015 ng/ml (0-0.045)
[2021-01-08] MEDS ORDERED: cefOXitin 2,000 MG/60 ML BAG IV STA (06:49)
[2021-01-08 07:06] LABS: Appearance Urine Clear (Clear); Blood Urine Negative (Negative); Color Urine Orange; Glucose Urine UA Negative (Negative); Ketones Urine 2+ (Negative); Leukocyte Esterase Urine Negative (Negative); Nitrite Urine Negative (Negative); Protein Urine Negative (Negative); Specific Gravity Urine 1.028 (1.000-1.030); Urobilinogen Urine Negative (Negative)
[2021-01-08 07:22] LABS: Bilirubin Urine 1+ (Negative)
--- NOTE | 2021-01-08 08:35 | CT Scan Report ---
CT abd pelvis wo con CLINICAL HISTORY: right side ab pain TECHNIQUE: Helical axial images of the abdomen and pelvis were obtained. Automated dose lowering tech niques and/or adjustment according to patient size were utilized for this exam. This exam was perfor med without intravenous contrast. COMPARISON: Comparison is made to CT abdomen pelvis 11/03/2020 FINDINGS: Lower chest: Cardiomegaly is partially visualized. Liver: Hepatic steatosis is noted. Gallbladder and biliary tree: No calcified gallstones. Normal caliber wall. No intra- or extrahepatic biliary ductal dilation. Pancreas: Unremarkable, no focal lesions. Spleen: Unremarkable. Adrenals: Unremarkable. Kidneys and ureters: Perinephric stranding is noted bilaterally. Bladder: A small amount of air is noted in the bladder which is otherwise under distended. Reproductive organs: Unremarkable. Bowel: Diverticulosis is seen without evidence of diverticulitis. There is severe enlargement of the appendix with appendicolith seen. The appendix measures 18 mm in diameter. There is surrounding fat s tranding but no evidence of drainable fluid collection or pneumoperitoneum. Lymph nodes Retroperitoneal: Unremarkable. Mesenteric: Unremarkable. Pelvic: Unremarkable. Peritoneum: Fat stranding seen predominantly in the right lower quadrant but also extending to the pe ripancreatic region as well. Vessels: Unremarkable. Abdominal wall: Bilateral fat-containing inguinal hernias are seen. Bones: Degenerative changes in the visualized spine. IMPRESSION: Acute appendicitis with appendicolith. No abscess or perforation is seen the reactive fat stranding i s seen. 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 ACT 112: Negative or not required by law. Electronically signed by: Germán Gamboa M.D. 01/08/2021 8:33 AM
--- NOTE | 2021-01-08 09:29 | History & Physical Report ---
Date of Service January 08, 2021 Assessment & Plan (1) Acute appendicitis: Plan: 60-year-old male with acute appendicitis Plan for laparoscopic appendectomy Risks were discussed to include but not limited to bleeding, infection, normal appendix, conversion to open, damage surrounding structures, need for future more extensive surgery, abscess, and the risk of anesthesia Preop antibiotics (2) COPD (chronic obstructive pulmonary disease): (3) HTN (hypertension): (4) HLD (hyperlipidemia): (5) Diastasis of rectus abdominis: History of Present Illness Chief Complaint: Abdominal pain Primary Care Provider: Roslyn Pennington 60-year-old male presented to the emergency department with abdominal pain. He is known to me from prior office visits. Started on Friday night with diffuse mild belly pain. Woke up Friday morning and had migrated to the right lower quadrant. He has had positive anorexia with no nausea or vomiting. Normal BMs. No changes since I saw him in the office last. Allergies Allergy/AdvReac Type Severity Reaction Status Date / Time No Known Allergies Allergy Mild Verified 01/08/21 07:54 Home Medications Medication Instructions Recorded Confirmed Type albuterol sulfate 90 mcg/actuation 2 puff INHALATION QID PRN 02/03/18 01/08/21 History aerosol inhaler (ProAir HFA) diltiazem HCl 120 mg 120 mg PO QAM 06/05/18 01/08/21 History capsule,extended release 24 hr (Cartia XT) furosemide 20 mg tablet 20 mg PO Q2D 03/31/19 01/08/21 History losartan 50 mg tablet (Cozaar) 50 mg PO QAM 03/31/19 01/08/21 History furosemide 20 mg tablet 40 mg PO Q2D 04/12/19 01/08/21 History montelukast 10 mg tablet 10 mg PO DAILY #30 tab 07/20/19 01/08/21 Rx (Singulair) tiotropium bromide 1.25 2 puff INH DAILY 90 Days #4 g 03/29/20 01/08/21 Rx mcg/actuation mist for inhalation (Spiriva Respimat) budesonide-formoterol HFA 160 2 puff INHALATION Q12H #1 inhaler 11/06/20 01/08/21 Rx mcg-4.5 mcg/actuation aerosol inhaler (Symbicort) diclofenac sodium 1 % topical gel 2 g TOPICAL QID PRN 01/08/21 01/08/21 History metformin 500 mg tablet,extended 500 mg PO DAILY 01/08/21 01/08/21 History release 24 hr potassium chloride 20 mEq 20 meq PO DAILY 01/08/21 01/08/21 History tablet,extended release Past Med/Surg History Medical History Abnormal CT of the abdomen Acute bronchitis Acute hyponatremia Acute renal failure LATOSHA (acute kidney injury) Arrhythmia Candelaria esophagitis Chronic obstructive pulmonary disease Duodenitis Fluid overload "FLUID IN MY LUNGS" GERD (gastroesophageal reflux disease) Hiatal hernia Hyperlipidemia Hypertension Leg swelling Lipoma of colon Neck pain Nonproductive cough Osteoarthritis Rhabdomyolysis Sclerosing mesenteritis Surgical History Clubfoot, congenital H/O palate surgery History of adenoidectomy History of arthroscopy RT KNEE History of cardiac cath no stents. 2018 at [facility] History of cataract surgery bilateral History of colonoscopy History of esophagogastroduodenoscopy (EGD) History of nasal septoplasty History of surgery on arm RT ARM History of tonsillectomy History of tooth extraction History of vein stripping Family History Other No family history of adverse response to anesthesia No pertinent family history Social History Smoking Status: Never smoker Second Hand Exposure: No; Hx Alcohol Use: No Hx Substance Use: No Preferred Language: Albanian Communication Ability: Effective Visual Impairment: No Limitations Hearing Ability: Normal Trophy Assembler Required: No Beliefs That Will Affect Care: None Current Living Situation: Parent Current Living Situation Comment: LIVES WITH MOTHER (PT HELPS MOTHER OUT) Feels Safe at Home: Yes Assistive Devices: Denture - Upper Review of Systems Review of Systems: All systems reviewed & are unremarkable except as noted in HPI & below Physical Exam Constitutional: WD/WN, vitals as above + overweight Respiratory: normal respiratory effort, lungs clear to auscultation Cardiovascular: RRR, no murmur, no edema Gastrointestinal (Abdomen): Percussion/Palpation: + abdomen tender (Tender to palpation McBurney's point in the right lower quadrant), + guarding (Localized right lower quadrant guarding) and abdomen soft; abdomen not rigid, no hepatosplenomegaly and no hernia (Upper midline diastases) Results & Data Results & Data ([facility]) Vital Signs (Past 12 Hours) Vital Signs Temp Pulse Pulse Resp BP BP Pulse Ox 01/08/21 09:00 90 23 147/72 H 100 01/08/21 08:30 90 24 100 01/08/21 08:00 94 H 24 154/81 H 88 L 01/08/21 07:30 92 H 24 139/80 93 01/08/21 07:00 91 H 24 144/79 H 93 01/08/21 06:24 94 H 93 01/08/21 06:20 88 142/75 H 142/75 H 94 01/08/21 04:55 36.6 C 93 H 16 93 Laboratory Results Laboratory Results - last 24 hr 01/08/21 01/08/21 01/08/21 05:30 05:30 05:30 WBC 10.47 RBC 4.37 L Hgb 12.9 L Hct 37.9 L MCV 86.7 MCH 29.5 MCHC 34.0 RDW Std Deviation 42.9 RDW Coeff of Omar 13.4 Plt Count 130 MPV 11.5 H Immature Gran % (Auto) 0.2 Neut % (Auto) 82.4 Lymph % (Auto) 8.1 Cooper % (Auto) 9.1 Eos % (Auto) 0.1 Baso % (Auto) 0.1 Neut # (Auto) 8.63 H Lymph # (Auto) 0.85 L Cooper # (Auto) 0.95 H Eos # (Auto) 0.01 Baso # (Auto) 0.01 Immature Gran # (Auto) 0.02 PT 10.3 INR 1.0 APTT 23.6 PTT Ratio 0.9 Sodium 134 L Potassium 4.0 Chloride 102 Carbon Dioxide 25 Anion Gap 7.0 BUN 10 Creatinine 0.89 Est Cr Clr Drug Dosing 95.5 Est GFR ( Amer) 107.0 Est GFR (Non-Af Amer) 92.3 BUN/Creatinine Ratio 11.6 Glucose 178 H POC Glucose Calcium 8.5 Total Bilirubin 2.6 H AST 27 ALT 21 Alkaline Phosphatase 87 Troponin I < 0.015 Total Protein 7.0 Albumin 3.3 L Globulin 3.7 Albumin/Globulin Ratio 0.9 Lipase 119 Specimen Hemolysis Urine Color Urine Appearance Urine pH Ur Specific Center Urine Protein Urine Glucose (UA) Urine Ketones Urine Blood Urine Nitrite Urine Bilirubin Urine Urobilinogen Ur Leukocyte Esterase COVID-19 Eval Order SARS-CoV-2 (PCR) 01/08/21 01/08/21 01/08/21 05:45 05:45 06:25 WBC RBC Hgb Hct MCV MCH MCHC RDW Std Deviation RDW Coeff of Omar Plt Count MPV Immature Gran % (Auto) Neut % (Auto) Lymph % (Auto) Cooper % (Auto) Eos % (Auto) Baso % (Auto) Neut # (Auto) Lymph # (Auto) Cooper # (Auto) Eos # (Auto) Baso # (Auto) Immature Gran # (Auto) PT INR APTT PTT Ratio Sodium Potassium Chloride Carbon Dioxide Anion Gap BUN Creatinine Est Cr Clr Drug Dosing Est GFR ( Amer) Est GFR (Non-Af Amer) BUN/Creatinine Ratio Glucose POC Glucose Calcium Total Bilirubin AST ALT Alkaline Phosphatase Troponin I Total Protein Albumin Globulin Albumin/Globulin Ratio Lipase Specimen Hemolysis Urine Color [place] Urine Appearance Clear Urine pH 5.0 Ur Specific Center 1.028 Urine Protein Negative Urine Glucose (UA) Negative Urine Ketones 2+ H Urine Blood Negative Urine Nitrite Negative Urine Bilirubin 1+ H Urine Urobilinogen Negative Ur Leukocyte Esterase Negative COVID-19 Eval Order Covid19 at [facility] SARS-CoV-2 (PCR) NEGATIVE 01/08/21 10:25 WBC RBC Hgb Hct MCV MCH MCHC RDW Std Deviation RDW Coeff of Omar Plt Count MPV Immature Gran % (Auto) Neut % (Auto) Lymph % (Auto) Cooper % (Auto) Eos % (Auto) Baso % (Auto) Neut # (Auto) Lymph # (Auto) Cooper # (Auto) Eos # (Auto) Baso # (Auto) Immature Gran # (Auto) PT INR APTT PTT Ratio Sodium Potassium Chloride Carbon Dioxide Anion Gap BUN Creatinine Est Cr Clr Drug Dosing Est GFR ( Amer) Est GFR (Non-Af Amer) BUN/Creatinine Ratio Glucose POC Glucose 153 H Calcium Total Bilirubin AST ALT Alkaline Phosphatase Troponin I Total Protein Albumin Globulin Albumin/Globulin Ratio Lipase Specimen Hemolysis Urine Color Urine Appearance Urine pH Ur Specific Center Urine Protein Urine Glucose (UA) Urine Ketones Urine Blood Urine Nitrite Urine Bilirubin Urine Urobilinogen Ur Leukocyte Esterase COVID-19 Eval Order SARS-CoV-2 (PCR) Diagnostic Findings CT abd pelvis wo con CLINICAL HISTORY: right side ab pain TECHNIQUE: Helical axial images of the abdomen and pelvis were obtained. Automated dose lowering techniques and/or adjustment according to patient size were utilized for this exam. This exam was performed without intravenous contrast. COMPARISON: Comparison is made to CT abdomen pelvis 11/03/2020 FINDINGS: Lower chest: Cardiomegaly is partially visualized. Liver: Hepatic steatosis is noted. Gallbladder and biliary tree: No calcified gallstones. Normal caliber wall. No intra- or extrahepatic biliary ductal dilation. Pancreas: Unremarkable, no focal lesions. Spleen: Unremarkable. Adrenals: Unremarkable. Kidneys and ureters: Perinephric stranding is noted bilaterally. Bladder: A small amount of air is noted in the bladder which is otherwise under distended. Reproductive organs: Unremarkable. Bowel: Diverticulosis is seen without evidence of diverticulitis. There is severe enlargement of the appendix with appendicolith seen. The appendix measures 18 mm in diameter. There is surrounding fat stranding but no evidence of drainable fluid collection or pneumoperitoneum. Lymph nodes Retroperitoneal: Unremarkable. Mesenteric: Unremarkable. Pelvic: Unremarkable. Peritoneum: Fat stranding seen predominantly in the right lower quadrant but also extending to the peripancreatic region as well. Vessels: Unremarkable. Abdominal wall: Bilateral fat-containing inguinal hernias are seen. Bones: Degenerative changes in the visualized spine. IMPRESSION: Acute appendicitis with appendicolith. No abscess or perforation is seen the reactive fat stranding is seen. 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 PG Care Time/CCT Total # of Minutes Spent Total Time Spent with Patient: Total time spent is greater than 50% in coordin ation of care (as documented) at patient's floor/unit and/or counseling patient: Coding Level of Care Code INT OBSERVATION CARE 30M LVL 1 Diagnoses Acute appendicitis K35.80 COPD (chronic obstructive pulmonary disease) J44.9 HTN (hypertension) I10 HLD (hyperlipidemia) E78.5 Diastasis of rectus abdominis M62.08
[2021-01-08] MEDS ORDERED: ONDANSETRON INJ 2 MG/ML 2 ML VIAL ONE (10:53)
[2021-01-08] MEDS ORDERED: FLUMAZENIL 0.1 MG/1 ML 10 ML VIAL IV ONE (10:53)
[2021-01-08] MEDS ORDERED: fentaNYL citrate 100 MCG/2 ML VIAL ONE (10:53)
[2021-01-08] MEDS ORDERED: MIDAZOLAM HCL 1 MG/ML 2ML VIAL ONE (10:53)
[2021-01-08] MEDS ORDERED: PROPOFOL IV EMULSION 10 MG/ML 20 ML VIAL IV ONE (10:53)
[2021-01-08] MEDS ORDERED: BUPIVACAINE 0.5 % 5 MG/1 ML MPF 30ML VIAL ONE (10:56)
[2021-01-08] MEDS ORDERED: fentaNYL citrate 100 MCG/2 ML VIAL IV PRN (10:59)
[2021-01-08] MEDS ORDERED: ATROPINE SULFATE 0.1 MG/ML 10ML SYR IV PRN (10:59)
[2021-01-08] MEDS ORDERED: ONDANSETRON INJ 2 MG/ML 2 ML VIAL IV PRN ×2 (10:59→17:48)
[2021-01-08] MEDS ORDERED: ePHEDrine sulfate 50 MG/ML AMP IV PRN (10:59)
[2021-01-08] MEDS ORDERED: ACETAMINOPHEN 1000 MG/100 ML IV IV ONE ×2 (11:13→18:41)
--- NOTE | 2021-01-08 11:14 | Anesthesiology Consultation ---
Date of Service January 08, 2021 Assessment & Plan Chart Review Chart Review: Acceptable Risk for Surgery Consults Requested none ASA [id number] Proposed Anesthesia Anesthesia Type: General Risk / Benefits Reviewed With: PT / POA / Parent / Guardian, Accepts Plan and Informed Consent Obtained History Surgery Operation Date: 01/08/21 09:30 Proposed Procedures p Laparoscopic Appendectomy - Heraclio Lowe, DO, FACS Height/Weight Height: 6 ft 1 in Weight: 77.5 kg Allergies Allergy/AdvReac Type Severity Reaction Status Date / Time No Known Allergies Allergy Mild Verified 01/08/21 07:54 Medications Home Medications Medication Instructions Recorded Confirmed Last Taken albuterol sulfate 90 mcg/actuation 2 puff INHALATION QID PRN 02/03/18 01/08/21 01/07/21 aerosol inhaler (ProAir HFA) diltiazem HCl 120 mg 120 mg PO QAM 06/05/18 01/08/21 01/07/21 capsule,extended release 24 hr (Cartia XT) furosemide 20 mg tablet 20 mg PO Q2D 03/31/19 01/08/21 01/07/21 losartan 50 mg tablet (Cozaar) 50 mg PO QAM 03/31/19 01/08/21 01/07/21 furosemide 20 mg tablet 40 mg PO Q2D 04/12/19 01/08/21 01/07/21 montelukast 10 mg tablet 10 mg PO DAILY #30 tab 07/20/19 01/08/21 01/07/21 (Singulair) tiotropium bromide 1.25 2 puff INH DAILY 90 Days #4 g 03/29/20 01/08/21 01/07/21 mcg/actuation mist for inhalation (Spiriva Respimat) budesonide-formoterol HFA 160 2 puff INHALATION Q12H #1 inhaler 11/06/20 01/08/21 01/07/21 mcg-4.5 mcg/actuation aerosol inhaler (Symbicort) diclofenac sodium 1 % topical gel 2 g TOPICAL QID PRN 01/08/21 01/08/21 01/07/21 metformin 500 mg tablet,extended 500 mg PO DAILY 01/08/21 01/08/21 01/07/21 release 24 hr potassium chloride 20 mEq 20 meq PO DAILY 01/08/21 01/08/21 01/07/21 tablet,extended release Active Medications Generic Name Dose Route Start Last Admin Trade Name Logan PRN Reason Stop Dose Admin Morphine Sulfate 4 mg 01/08/21 05:10 01/08/21 07:14 Morphine Sulfate 4 Mg/Ml 1 Ml Carp\\Vial IV 01/22/21 05:09 4 mg Q30M PRN Administration Pain NPO Date Last Intake of Fluids: 01/06/21 Time Last Intake of Fluids: 16:00 Last Intake of Fluids Comment: nothing since friday Date Last Intake of Solids: 01/06/21 Last Intake of Solids Comment: nothing since friday Past Medical History Medical History Abnormal CT of the abdomen Acute bronchitis Acute hyponatremia Acute renal failure LATOSHA (acute kidney injury) Arrhythmia Candelaria esophagitis Chronic obstructive pulmonary disease Duodenitis Fluid overload "FLUID IN MY LUNGS" GERD (gastroesophageal reflux disease) Hiatal hernia Hyperlipidemia Hypertension Leg swelling Lipoma of colon Neck pain Nonproductive cough Osteoarthritis Rhabdomyolysis Sclerosing mesenteritis Exercise / Class Metabolic Activity III < 4 Walking/Shop/Light housework Past Family History Family History Other No family history of adverse response to anesthesia No pertinent family history Past Surgical History Surgical History Clubfoot, congenital H/O palate surgery History of adenoidectomy History of arthroscopy RT KNEE History of cardiac cath no stents. 2018 at [facility] History of cataract surgery bilateral History of colonoscopy History of esophagogastroduodenoscopy (EGD) History of nasal septoplasty History of surgery on arm RT ARM History of tonsillectomy History of tooth extraction History of vein stripping Past Anesthesia History No Hx of Anesthesia Complications and No Family Hx of Anesthesia Complications History of PONV No Hx of PONV and No Hx of Motion Sickness Social History Smoking Status: Never smoker Hx Alcohol Use: No Alcohol type: beer alcohol intake frequency: a few times a month Hx Substance Use: No substance use type: does not use Physical Exam Vital Signs Last Vital Signs Temp 102.4 F H 01/08/21 10:20 Pulse 100 H 01/08/21 10:20 Resp 20 01/08/21 10:20 BP 160/75 H 01/08/21 10:20 Pulse Ox 92 01/08/21 10:20 ENMT Mouth: + dentures (Upper) Thyromental Distance: > or= 3.5 Finger Breadths Mallampati Class: II Neck normal visual inspection Respiratory normal respiratory effort Auscultation: + diminished lung sounds Cardiovascular Rate/Rhythm: regular rate and regular rhythm Testing Laboratory Results 01/08/21 05:30 01/08/21 05:30 PT 10.3 Seconds (9.0-12.0) 01/08/21 05:30 INR 1.0 (0.9-1.1) 01/08/21 05:30 APTT 23.6 Seconds (21.0-31.0) 01/08/21 05:30 Urine Color [place] 01/08/21 06:25 Urine Appearance Clear (Clear) 01/08/21 06:25 Urine pH 5.0 (4.5-7.5) 01/08/21 06:25 Ur Specific [place] 1.028 (1.000-1.030) 01/08/21 06:25 Urine Protein Negative (Negative) 01/08/21 06:25 Urine Glucose (UA) Negative (Negative) 01/08/21 06:25 Urine Ketones 2+ (Negative) H 01/08/21 06:25 Urine Nitrite Negative (Negative) 01/08/21 06:25 Ur Leukocyte Esterase Negative (Negative) 01/08/21 06:25 01/08/21 10:25 POC Glucose 153 H Electrocardiogram Date: 01/08/21 Sinus rhythm with Premature atrial complexes, rate 78 bpm Left axis deviation Pulmonary disease pattern Abnormal ECG When compared with ECG of 31-MAR-2019 16:32, No significant change was found
[2021-01-08] MEDS ORDERED: GLYCOPYRROLATE 0.2 MG/ML VIAL ONE (11:50)
[2021-01-08] MEDS ORDERED: NEOSTIGMINE METHYLSULFATE 1 MG/ML 10ML VIAL ONE (11:50)
--- NOTE | 2021-01-08 12:39 | Operative Report ---
PG Post Operative Report Pre & Post Diagnosis Operation Date: 01/08/21 09:30 Pre-Op Diagnosis: Acute appendicitis. Post-Op Diagnosis: Acute appendicitis. I identified the patient and participated in the time-out.: Yes Procedure Operation Date: 01/08/21 09:30 Actual Procedures p Laparoscopic Appendectomy - Heraclio Lowe DO, FACS Surgeon Heraclio Lowe DO, FACS Photographer News None Estimated Blood Loss 10 Findings Consistent with Post-Op Diagnosis Acute, suppurative, nonperforated appendicitis. Specimens Appendix Anesthesia Type General Complications none Disposition Accompanied Patient To Recovery: No Disposition: Recovery Room Indications 60-year-old male with signs and symptoms of acute appendicitis confirmed by CT scan, plan for laparoscopic appendectomy. The risks of the procedure were discussed, all questions were answered, and the patient agreed to proceed with surgery as planned. Description of Procedure The patient was properly identified, consented, and taken to the operating room where he was placed in the supine position. General endotracheal anesthesia was induced. SCDs and a safety belt were placed. Preoperative antibiotics were administered. A Sol catheter was placed. The patient's abdomen was prepped and draped in the standard sterile fashion. Surgical timeout was performed and all parties were in agreement that this was the correct patient and procedure to be performed and we continued as planned. A curvilinear infraumbilical incision was made with electrocautery and deepened down to the fascia with blunt dissection. The base of the umbilicus was grasped with a Efrain and elevated towards the ceiling. An incision was made in the midline fascia with a knife and entry into the peritoneum was confirmed. Stay suture of 0 Vicryl was placed and a Bryson trocar was inserted. The abdomen was insufflated with carbon dioxide which the patient tolerated without incident. The laparoscope was inserted and no damage from initial trocar placement was noted, no gross abnormalities were noted within the 4 quadrants the abdomen. There was no evidence of abnormalities within the visualized mesentery. There was no evidence of a ventral hernia. 5 mm ports were then placed in the left lower quadrant with care not to damage the epigastric vessels, and in the suprapubic midline with care not to damage the bladder. The patient was placed in Trendelenburg position and rotated towards the left. The small bowel was swept away from the right lower quadrant. The cecum was grasped with an atraumatic grasper exposing the appendix. The appendix was acutely and significantly inflamed but there was no evidence of perforation. There was some reactive fluid in the pelvis. The appendix was gently teased away from the small bowel and the abdominal wall. A window was created between the base of the appendix and the mesoappendix. A rodriguez loaded endoscopic stapler was then used to divide the appendix at its base. The harmonic scalpel was then used to divide the mesoappendix. Hemostasis was good. The appendix was placed in an Endo Catch bag and removed through the umbilical port site. The right lower quadrant and pelvis was irrigated and hemostasis was found to be good. 5 mm trochars were removed under direct visualization and the abdomen was allowed to collapse. The umbilical port site fascia was closed with 0 Vicryl suture. The wound was irrigated, and the skin of all ports was closed with 4-0 Monocryl subcuticular sutures. Dermabond was placed over the wounds. The patient was extubated in the operating room and taken to the PACU where he recovered without apparent incident. The Sol catheter was removed. All sponge, instrument and needle counts were correct at the conclusion of the procedure. The patient tolerated the procedure well. I attest to the content of the Intraoperative Record and any orders documented therein. Any exceptions are noted below.
[2021-01-08] MEDS ORDERED: ROCURONIUM BROMIDE 10 MG/ML 5 ML VIAL IV ONE (13:00)
--- NOTE | 2021-01-08 14:20 | Anesthesiology Progress Note ---
Date of Service January 08, 2021 Anesthesia Post Procedure Vital Signs Vital Signs: Temp Pulse Pulse Pulse Resp BP BP 01/08/21 14:00 98.6 F 88 15 130/73 01/08/21 13:51 98.6 F 94 H 17 130/77 01/08/21 13:50 98.6 F 93 H 14 128/77 01/08/21 13:30 98.6 F 96 H 14 139/83 01/08/21 13:20 93 H 18 135/78 01/08/21 13:10 97 H 17 135/68 01/08/21 13:00 90 18 141/83 H 01/08/21 12:50 98.6 F 100 H 14 148/84 H 01/08/21 10:20 102.4 F H 100 H 20 160/75 H 01/08/21 10:10 95 H 21 150/79 H 01/08/21 09:00 90 23 147/72 H 01/08/21 08:30 90 24 01/08/21 08:00 94 H 24 154/81 H 01/08/21 07:30 92 H 24 139/80 01/08/21 07:00 91 H 24 144/79 H 01/08/21 06:24 94 H 01/08/21 06:20 88 142/75 H 142/75 H 01/08/21 04:55 97.9 F 93 H 16 Pulse Ox 01/08/21 14:00 91 01/08/21 13:51 92 01/08/21 13:50 91 01/08/21 13:30 91 01/08/21 13:20 92 01/08/21 13:10 94 01/08/21 13:00 95 01/08/21 12:50 94 01/08/21 10:20 92 01/08/21 10:10 100 01/08/21 09:00 100 01/08/21 08:30 100 01/08/21 08:00 88 L 01/08/21 07:30 93 01/08/21 07:00 93 01/08/21 06:24 93 01/08/21 06:20 94 01/08/21 04:55 93 Pain Intensity Right Abdomen: Pain Intensity: 0 Transfer of Care Handoff Completed per policy Notes Mental Status: alert / awake / arousable and participated in evaluation Patient Amnestic to Procedure: Yes Nausea / Vomiting: adequately controlled Pain: adequately controlled Airway Patency, RR, SpO2: stable & adequate BP & HR: stable & adequate Hydration State: stable & adequate Anesthetic Complications: no major complications apparent and Pt Satisfied with anesthetic care
[2021-01-08] MEDS ORDERED: MoRPHine SULFATE 4 MG/ML 1 ML CARP\\VIAL IV PRN (17:48)
[2021-01-08] MEDS ORDERED: diphenhydrAMINE 50 MG/ML VIAL IV PRN (17:48)
[2021-01-08] MEDS ORDERED: PIPERACILL/TAZOBAC CONSULT ACTIVE PRN (17:48)
[2021-01-08] MEDS ORDERED: MoRPHine SULFATE 2 MG/ML CARP IV PRN (17:48)
[2021-01-08] MEDS ORDERED: oxyCODONE/ACETAMINOPHEN 5mg/325mg TAB PO PRN ×2 (17:48)
[2021-01-08] MEDS ORDERED: ALBUTEROL HFA 8 GM INHALER INH PRN (17:59)
[2021-01-08] MEDS ORDERED: PIPERACILLIN/TAZOBACTAM 3.375 GM in DEXTROSE 5% 100 ML IV ONE (18:15)
[2021-01-08] MEDS ORDERED: KETOROLAC 30 MG/ML VIAL ONE (18:19)
[2021-01-08] MEDS: KETOROLAC TROMETHAMINE 15 MG/ML VIAL IV SCH ×2 (18:21→23:58)
[2021-01-08] MEDS ORDERED: ACETAMINOPHEN 1,000 MG/100 ML VIAL IV PRN (18:33)
[2021-01-08] MEDS: LACTATED RINGER'S 1,000 ML IV SCH (19:41)
[2021-01-08] MEDS: PIPERACILLIN/TAZOBACTAM 3.375 GM in DEXTROSE 5% 100 ML IV SCH (23:58)
--- NOTE | 2021-01-09 04:58 | Electrocardiogram Report ---
Test Reason : Blood Pressure : / mmHG Vent. Rate : 078 BPM Atrial Rate : 078 BPM P-R Int : 184 ms QRS Dur : 096 ms QT Int : 400 ms P-R-T Axes : 107 -38 028 degrees QTc Int : 456 ms Sinus rhythm with Premature atrial complexes Left axis deviation Abnormal ECG When compared with ECG of 31-MAR-2019 16:32, No significant change was found Confirmed by Jad Manjarrez ([id number]) on 01/09/2021 4:58:04 AM Referred By: REFERRED SELF Confirmed By:Jad Manjarrez
[2021-01-09] MEDS: LACTATED RINGER'S 1,000 ML IV SCH (05:51)
[2021-01-09] MEDS: KETOROLAC TROMETHAMINE 15 MG/ML VIAL IV SCH ×2 (05:52→13:10)
--- NOTE | 2021-01-09 07:26 | Emergency Department Note ---
History of Present Illness General Chief complaint: Abdominal Pain Stated complaint: ABD ON RT SIDE Time Seen by Provider: 01/08/21 05:00 History of Present Illness Maximum Pain Intensity: 3 This is a 60-year-old male presenting to the emergency department for evaluation of right-sided abdominal pain for the past 4 to 5 days. The patient's discomfort has worsened over the past 1 to 2 days, and he has not had anything to eat in the past 2 days. He is nauseated without vomiting. No chest pain, chest tightness, or shortness of breath. He does not have a history of abdominal surgery. He rates his current discomfort a 5/10 that worsens with pressing in the area and movement. He has not taken anything [id number] for symptoms. Home Medications Medication Instructions Recorded Confirmed Type albuterol sulfate 90 mcg/actuation 2 puff INHALATION QID PRN 02/03/18 01/08/21 History aerosol inhaler (ProAir HFA) diltiazem HCl 120 mg 120 mg PO QAM 06/05/18 01/08/21 History capsule,extended release 24 hr (Cartia XT) furosemide 20 mg tablet 20 mg PO Q2D 03/31/19 01/08/21 History losartan 50 mg tablet (Cozaar) 50 mg PO QAM 03/31/19 01/08/21 History furosemide 20 mg tablet 40 mg PO Q2D 04/12/19 01/08/21 History montelukast 10 mg tablet 10 mg PO DAILY #30 tab 07/20/19 01/08/21 Rx (Singulair) tiotropium bromide 1.25 2 puff INH DAILY 90 Days #4 g 03/29/20 01/08/21 Rx mcg/actuation mist for inhalation (Spiriva Respimat) budesonide-formoterol HFA 160 2 puff INHALATION Q12H #1 inhaler 11/06/20 01/08/21 Rx mcg-4.5 mcg/actuation aerosol inhaler (Symbicort) diclofenac sodium 1 % topical gel 2 g TOPICAL QID PRN 01/08/21 01/08/21 History metformin 500 mg tablet,extended 500 mg PO DAILY 01/08/21 01/08/21 History release 24 hr potassium chloride 20 mEq 20 meq PO DAILY 01/08/21 01/08/21 History tablet,extended release Allergies Allergy/AdvReac Type Severity Reaction Status Date / Time No Known Allergies Allergy Mild Verified 01/08/21 07:54 Past Med/Surg History Medical History Abnormal CT of the abdomen Acute bronchitis Acute hyponatremia Acute renal failure LATOSHA (acute kidney injury) Arrhythmia Candelaria esophagitis Chronic obstructive pulmonary disease Duodenitis Fluid overload "FLUID IN MY LUNGS" GERD (gastroesophageal reflux disease) Hiatal hernia Hyperlipidemia Hypertension Leg swelling Lipoma of colon Neck pain Nonproductive cough Osteoarthritis Rhabdomyolysis Sclerosing mesenteritis Surgical History Clubfoot, congenital H/O palate surgery History of adenoidectomy History of arthroscopy RT KNEE History of cardiac cath no stents. 2018 at [facility] History of cataract surgery bilateral History of colonoscopy History of esophagogastroduodenoscopy (EGD) History of nasal septoplasty History of surgery on arm RT ARM History of tonsillectomy History of tooth extraction History of vein stripping Family History Other No family history of adverse response to anesthesia No pertinent family history Social History Smoking Status: Never smoker Second Hand Exposure: No; Do You Dip or Chew Tobacco: No; Tobacco Cessation Education Requested by Patient: No Hx Alcohol Use: Yes Alcohol type: hard liquor Hx Substance Use: No Preferred Language: Korean Communication Ability: Effective Visual Impairment: No Limitations Hearing Ability: Normal Lump Inspector Required: No Beliefs That Will Affect Care: None Current Living Situation: Parent Current Living Situation Comment: Lives with 90 yo mother to help her out Other Information That Helps Us Care for You: No Feels Safe at Home: Yes Safety Concerns: Feels Safe At This Time Assistive Devices: None, Denture - Upper and Glasses Review of Systems A total of 10 systems reviewed and were otherwise negative Physical Exam Vital Signs Vital Signs - 24 hr 01/08/21 07:30 01/08/21 08:00 01/08/21 08:30 Temperature Temperature Source Pulse Rate 92 H 94 H 90 Pulse Rate [Apical] Pulse Rate [Left Finger] Pulse Rate from SpO2 Sensor 93 H 95 H 88 Pulse Rhythm [Apical] Pulse Rhythm [Left Finger] Pulse Strength [Left Finger] Respiratory Rate 24 24 24 Respiratory Effort / Characteristics Respiratory Depth Respiratory Pattern Blood Pressure 139/80 154/81 H Blood Pressure [Right Arm] Blood Pressure Mean 99 105 Blood Pressure Mean [Right Arm] Blood Pressure Position [Right Arm] Pulse Oximetry 93 88 L 100 Oxygen Delivery Method Room Air Room Air Nasal Cannula Oxygen Flow Rate 3 01/08/21 09:00 01/08/21 10:10 01/08/21 10:20 Temperature 39.1 C H Temperature Source Oral Pulse Rate 90 95 H Pulse Rate [Apical] Pulse Rate [Left Finger] 100 H Pulse Rate from SpO2 Sensor 90 Pulse Rhythm [Apical] Pulse Rhythm [Left Finger] Regular Pulse Strength [Left Finger] Normal Respiratory Rate 23 21 20 Respiratory Effort / Characteristics Non-Labored Spontaneous Respiratory Depth Normal Respiratory Pattern Regular Blood Pressure 147/72 H 150/79 H Blood Pressure [Right Arm] 160/75 H Blood Pressure Mean 97 Blood Pressure Mean [Right Arm] 103 Blood Pressure Position [Right Arm] Sitting Pulse Oximetry 100 100 92 Oxygen Delivery Method Nasal Cannula Nasal Cannula Nasal Cannula Oxygen Flow Rate 3 3 2 01/08/21 12:50 Temperature 37.0 C Temperature Source Temporal Artery Scan Pulse Rate Pulse Rate [Apical] 100 H Pulse Rate [Left Finger] Pulse Rate from SpO2 Sensor Pulse Rhythm [Apical] Regular Pulse Rhythm [Left Finger] Pulse Strength [Left Finger] Respiratory Rate 14 Respiratory Effort / Characteristics Non-Labored Spontaneous Respiratory Depth Normal Respiratory Pattern Regular Blood Pressure Blood Pressure [Right Arm] 148/84 H Blood Pressure Mean Blood Pressure Mean [Right Arm] 105 Blood Pressure Position [Right Arm] Semi-fowlers Pulse Oximetry 94 Oxygen Delivery Method Oxymask Oxygen Flow Rate 10 VITALS: Vitals are noted on the nurse's note and reviewed by myself. Vital signs stable. GENERAL: Well-developed, well-nourished, white male, who is in no acute distress and resting comfortably. Patient is cooperative with the examination. HEAD: Normocephalic atraumatic. NECK: Supple without nuchal rigidity. No lymphadenopathy. No thyromegaly. Cervical spine is nontender. HEART: Regular rate and rhythm without murmurs gallops or rubs. LUNGS: Clear to auscultation bilaterally without wheezes, rales or rhonchi. No retractions or accessory muscle use. ABDOMEN: Positive normal bowel sounds x 4. Abdomen is soft but seems somewhat distended. There is tenderness along the right side lateral and right lower quadrant. No CVA tenderness. MUSCULOSKELETAL: No muscle atrophy, erythema, or edema noted. Full range of motion in all extremities. Course Administered Medications Lactated Ringer's (Lr) 1,000 mls @ 100 mls/hr IV .Q10H FREDDIE Stop: 02/07/21 17:47 Last Admin: 01/09/21 05:51 Dose: 100 mls/hr Documented by: [id number] Infusion: 01/09/21 05:41 Dose: 100 mls/hr Documented by: [id number] Admin: 01/08/21 19:41 Dose: 100 mls/hr Documented by: [id number] Piperacillin Sod/Tazobactam (Sod 3.375 gm/ Dextrose) 115 mls @ 28.75 mls/hr IV Q8H FREDDIE; Protocol Stop: 01/09/21 18:59 Last Infusion: 01/09/21 04:01 Dose: 0 mls/hr Documented by: [id number] Admin: 01/08/21 23:58 Dose: 28.8 mls/hr Documented by: [id number] Acetaminophen (Ofirmev) 1,000 mg in 100 mls @ 400 mls/hr IV Q8H PRN PRN Reason: Fever Stop: 01/11/21 18:32 Last Infusion: 01/08/21 19:28 Dose: 0 mls/hr Documented by: [id number] Admin: 01/08/21 18:42 Dose: 400 mls/hr Documented by: [id number] Ketorolac Tromethamine (Ketorolac Tromethamine 15 Mg/Ml Vial) 15 mg IV Q6H FREDDIE Stop: 01/13/21 18:59 Last Admin: 01/09/21 05:52 Dose: 15 mg Documented by: [id number] Admin: 01/08/21 23:58 Dose: 15 mg Documented by: [id number] Admin: 01/08/21 18:21 Dose: 15 mg Documented by: [id number] Discontinued Medications Acetaminophen (Acetaminophen 1000 Mg/100 Ml Iv) Confirm Administered Dose 1,000 mg IV .STK-MED ONE Stop: 01/08/21 18:42 Last Admin: 01/08/21 18:44 Dose: Not Given Documented by: [id number] Bupivacaine HCl (Bupivacaine 0.5 % 5 Mg/1 Ml Mpf 30ml Vial) Confirm Administered Dose 30 ml .ROUTE .STK-MED ONE Stop: 01/08/21 10:57 Last Admin: 01/08/21 12:30 Dose: 30 ml Documented by: [id number] Sodium Chloride (Nss 1000ml) 1,000 mls @ 999 mls/hr IV .Q1H1M FREDDIE Stop: 01/08/21 06:15 Last Infusion: 01/08/21 06:37 Dose: 0 mls/hr Documented by: [id number] Admin: 01/08/21 05:36 Dose: 999 mls/hr Documented by: [id number] Cefoxitin Sodium (Mefoxin) 2,000 mg in 60 mls @ 100 mls/hr IV NOW STA Stop: 01/08/21 07:24 Last Infusion: 01/08/21 07:46 Dose: 0 mls/hr Documented by: [id number] Admin: 01/08/21 07:10 Dose: 100 mls/hr Documented by: [id number] Piperacillin Sod/Tazobactam (Sod 3.375 gm/ Dextrose) 115 mls @ 230 mls/hr IV NOW ONE; Protocol Stop: 01/08/21 18:44 Last Infusion: 01/08/21 19:29 Dose: 0 mls/hr Documented by: [id number] Admin: 01/08/21 18:21 Dose: 230 mls/hr Documented by: [id number] Ketorolac Tromethamine (Ketorolac 30 Mg/Ml Vial) Confirm Administered Dose 30 mg .ROUTE .STK-MED ONE Stop: 01/08/21 18:20 Last Admin: 01/08/21 18:22 Dose: Not Given Documented by: [id number] Morphine Sulfate (Morphine Sulfate 4 Mg/Ml 1 Ml Carp\\Vial) 4 mg IV Q30M PRN PRN Reason: Pain Stop: 01/22/21 05:09 Last Admin: 01/08/21 07:14 Dose: 4 mg Documented by: [id number] Admin: 01/08/21 05:41 Dose: 4 mg Documented by: [id number] Ondansetron HCl (Ondansetron Inj 2 Mg/Ml 2 Ml Vial) 4 mg IV NOW STA Stop: 01/08/21 05:11 Last Admin: 01/08/21 05:41 Dose: 4 mg Documented by: [id number] Medical Decision Making Differential Diagnosis Differential diagnosis: Etiologies such as biliary colic, cholecystitis, hepatitis, pancreatitis, cardi ac disease, pancreatitis, gastritis, peptic ulcer disease, appendicitis, cystitis, diverticulitis, mesenteric ischemia, inflammatory bowel disease, ileus, bowel obstruction, testicular/adnexal torsion, aortic pathology, shingles, as well as others were considered Laboratory Data Result diagrams: 01/08/21 05:30 01/08/21 05:30 Lab Results 01/08/21 01/08/21 01/08/21 Range/Units 05:30 05:30 05:30 WBC 10.47 (4.8-10.8) K/uL RBC 4.37 L (4.7-6.1) M/uL Hgb 12.9 L (14.0-18.0) g/dL Hct 37.9 L (42-52) % MCV 86.7 (80-100) fL MCH 29.5 (25-34) pg MCHC 34.0 (32-36) g/dL RDW Std Deviation 42.9 (36.4-46.3) fL RDW Coeff of Omar 13.4 (11.5-14.5) % Plt Count 130 (130-400) K/uL MPV 11.5 H (7.4-10.4) fL Immature Gran % (Auto) 0.2 % Neut % (Auto) 82.4 % Lymph % (Auto) 8.1 % [place] % (Auto) 9.1 % Eos % (Auto) 0.1 % Baso % (Auto) 0.1 % Neut # (Auto) 8.63 H (1.4-6.5) K/uL Lymph # (Auto) 0.85 L (1.2-3.4) K/uL [place] # (Auto) 0.95 H (0.11-0.59) K/uL Eos # (Auto) 0.01 (0-0.5) K/uL Baso # (Auto) 0.01 (0-0.2) K/uL Immature Gran # (Auto) 0.02 (0.00-0.02) K/uL PT 10.3 (9.0-12.0) Seconds INR 1.0 (0.9-1.1) APTT 23.6 (21.0-31.0) Seconds PTT Ratio 0.9 Sodium 134 L (136-145) mmol/L Potassium 4.0 (3.5-5.1) mmol/L Chloride 102 (98-107) mmol/L Carbon Dioxide 25 (21-32) mmol/L Anion Gap 7.0 (3-11) BUN 10 (7-18) mg/dl Creatinine 0.89 (0.6-1.4) mg/dl Est Cr Clr Drug Dosing 95.5 ml/min Est GFR ( Amer) 107.0 ml/min Est GFR (Non-Af Amer) 92.3 ml/min BUN/Creatinine Ratio 11.6 (10-20) Glucose 178 H (70-99) mg/dl POC Glucose (70-99) mg/dl Calcium 8.5 (8.5-10.1) mg/dl Total Bilirubin 2.6 H (0.2-1) mg/dl AST 27 (15-37) U/L ALT 21 (12-78) U/L Alkaline Phosphatase 87 (45-117) U/L Troponin I < 0.015 (0-0.045) ng/ml Total Protein 7.0 (6.4-8.2) gm/dl Albumin 3.3 L (3.4-5.0) gm/dl Globulin 3.7 (2.5-4.0) gm/dl Albumin/Globulin Ratio 0.9 (0.9-2) Lipase 119 (73-393) U/L Specimen Hemolysis Urine Color Urine Appearance (Clear) Urine pH (4.5-7.5) Ur Specific [place] (1.000-1.030) Urine Protein (Negative) Urine Glucose (UA) (Negative) Urine Ketones (Negative) Urine Blood (Negative) Urine Nitrite (Negative) Urine Bilirubin (Negative) Urine Urobilinogen (Negative) Ur Leukocyte Esterase (Negative) COVID-19 Eval Order SARS-CoV-2 (PCR) (Negative) 01/08/21 01/08/21 01/08/21 Range/Units 05:45 05:45 06:25 WBC (4.8-10.8) K/uL RBC (4.7-6.1) M/uL Hgb (14.0-18.0) g/dL Hct (42-52) % MCV (80-100) fL MCH (25-34) pg MCHC (32-36) g/dL RDW Std Deviation (36.4-46.3) fL RDW Coeff of Omar (11.5-14.5) % Plt Count (130-400) K/uL MPV (7.4-10.4) fL Immature Gran % (Auto) % Neut % (Auto) % Lymph % (Auto) % [place] % (Auto) % Eos % (Auto) % Baso % (Auto) % Neut # (Auto) (1.4-6.5) K/uL Lymph # (Auto) (1.2-3.4) K/uL [place] # (Auto) (0.11-0.59) K/uL Eos # (Auto) (0-0.5) K/uL Baso # (Auto) (0-0.2) K/uL Immature Gran # (Auto) (0.00-0.02) K/uL PT (9.0-12.0) Seconds INR (0.9-1.1) APTT (21.0-31.0) Seconds PTT Ratio Sodium (136-145) mmol/L Potassium (3.5-5.1) mmol/L Chloride (98-107) mmol/L Carbon Dioxide (21-32) mmol/L Anion Gap (3-11) BUN (7-18) mg/dl Creatinine (0.6-1.4) mg/dl Est Cr Clr Drug Dosing ml/min Est GFR ( Amer) ml/min Est GFR (Non-Af Amer) ml/min BUN/Creatinine Ratio (10-20) Glucose (70-99) mg/dl POC Glucose (70-99) mg/dl Calcium (8.5-10.1) mg/dl Total Bilirubin (0.2-1) mg/dl AST (15-37) U/L ALT (12-78) U/L Alkaline Phosphatase (45-117) U/L Troponin I (0-0.045) ng/ml Total Protein (6.4-8.2) gm/dl Albumin (3.4-5.0) gm/dl Globulin (2.5-4.0) gm/dl Albumin/Globulin Ratio (0.9-2) Lipase (73-393) U/L Specimen Hemolysis Urine Color [place] Urine Appearance Clear (Clear) Urine pH 5.0 (4.5-7.5) Ur Specific [place] 1.028 (1.000-1.030) Urine Protein Negative (Negative) Urine Glucose (UA) Negative (Negative) Urine Ketones 2+ H (Negative) Urine Blood Negative (Negative) Urine Nitrite Negative (Negative) Urine Bilirubin 1+ H (Negative) Urine Urobilinogen Negative (Negative) Ur Leukocyte Esterase Negative (Negative) COVID-19 Eval Order Covid19 at [facility] SARS-CoV-2 (PCR) NEGATIVE (Negative) 01/08/21 Range/Units 10:25 WBC (4.8-10.8) K/uL RBC (4.7-6.1) M/uL Hgb (14.0-18.0) g/dL Hct (42-52) % MCV (80-100) fL MCH (25-34) pg MCHC (32-36) g/dL RDW Std Deviation (36.4-46.3) fL RDW Coeff of Omar (11.5-14.5) % Plt Count (130-400) K/uL MPV (7.4-10.4) fL Immature Gran % (Auto) % Neut % (Auto) % Lymph % (Auto) % [place] % (Auto) % Eos % (Auto) % Baso % (Auto) % Neut # (Auto) (1.4-6.5) K/uL Lymph # (Auto) (1.2-3.4) K/uL [place] # (Auto) (0.11-0.59) K/uL Eos # (Auto) (0-0.5) K/uL Baso # (Auto) (0-0.2) K/uL Immature Gran # (Auto) (0.00-0.02) K/uL PT (9.0-12.0) Seconds INR (0.9-1.1) APTT (21.0-31.0) Seconds PTT Ratio Sodium (136-145) mmol/L Potassium (3.5-5.1) mmol/L Chloride (98-107) mmol/L Carbon Dioxide (21-32) mmol/L Anion Gap (3-11) BUN (7-18) mg/dl Creatinine (0.6-1.4) mg/dl Est Cr Clr Drug Dosing ml/min Est GFR ( Amer) ml/min Est GFR (Non-Af Amer) ml/min BUN/Creatinine Ratio (10-20) Glucose (70-99) mg/dl POC Glucose 153 H (70-99) mg/dl Calcium (8.5-10.1) mg/dl Total Bilirubin (0.2-1) mg/dl AST (15-37) U/L ALT (12-78) U/L Alkaline Phosphatase (45-117) U/L Troponin I (0-0.045) ng/ml Total Protein (6.4-8.2) gm/dl Albumin (3.4-5.0) gm/dl Globulin (2.5-4.0) gm/dl Albumin/Globulin Ratio (0.9-2) Lipase (73-393) U/L Specimen Hemolysis Urine Color Urine Appearance (Clear) Urine pH (4.5-7.5) Ur Specific [place] (1.000-1.030) Urine Protein (Negative) Urine Glucose (UA) (Negative) Urine Ketones (Negative) Urine Blood (Negative) Urine Nitrite (Negative) Urine Bilirubin (Negative) Urine Urobilinogen (Negative) Ur Leukocyte Esterase (Negative) COVID-19 Eval Order SARS-CoV-2 (PCR) (Negative) Imaging Data Radiologist's Impression: Abdomen/Pelvis CT 01/08/21 05:10 CT abd pelvis wo con CLINICAL HISTORY: right side ab pain TECHNIQUE: Helical axial images of the abdomen and pelvis were obtained. Automated dose lowering techniques and/or adjustment according to patient size were utilized for this exam. This exam was performed without intravenous contrast. COMPARISON: Comparison is made to CT abdomen pelvis 11/03/2020 FINDINGS: Lower chest: Cardiomegaly is partially visualized. Liver: Hepatic steatosis is noted. Gallbladder and biliary tree: No calcified gallstones. Normal caliber wall. No intra- or extrahepatic biliary ductal dilation. Pancreas: Unremarkable, no focal lesions. Spleen: Unremarkable. Adrenals: Unremarkable. Kidneys and ureters: Perinephric stranding is noted bilaterally. Bladder: A small amount of air is noted in the bladder which is otherwise under distended. Reproductive organs: Unremarkable. Bowel: Diverticulosis is seen without evidence of diverticulitis. There is severe enlargement of the appendix with appendicolith seen. The appendix measures 18 mm in diameter. There is surrounding fat stranding but no evidence of drainable fluid collection or pneumoperitoneum. Lymph nodes Retroperitoneal: Unremarkable. Mesenteric: Unremarkable. Pelvic: Unremarkable. Peritoneum: Fat stranding seen predominantly in the right lower quadrant but also extending to the peripancreatic region as well. Vessels: Unremarkable. Abdominal wall: Bilateral fat-containing inguinal hernias are seen. Bones: Degenerative changes in the visualized spine. IMPRESSION: Acute appendicitis with appendicolith. No abscess or perforation is seen the reactive fat stranding is seen. 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 ACT 112: Negative or not required by law. Electronically signed by: Germán Gamboa M.D. 01/08/2021 8:33 AM MDM Narrative Physical exam and history were performed. Nursing notes, EMR, and Medication List were personally reviewed. Patient appears to have right-sided abdominal pain bringing him to the emergency department. IV access was established and labs were obtained. The patient was hydrated with normal saline and given IV morphine and IV Zofran for comfort. He was sent to CT scan for further evaluation of his symptoms. The patient's blood work is as above and was reviewed. He does not have a significantly elevated white blood cell count, gross anemia, bandemia, or significant electrolyte imbalance. Lipase and transaminases are not diagnostic. Troponin x1 is negative. Urine is with 2+ ketones but no distinct evidence of infection. Covid swab was performed and negative. CT scan was reviewed by myself and radiology and does appear to show an acute appendicitis. Clinically this would correlate with the patient's symptoms. The case was discussed with the on-call surgical team who will evaluate the patient here in the ER. Please see their dictation for further patient course, plan, disposition. The chart was completed utilizing [employer] Speech Voice Recognition Software. Grammatical errors, random word insertions, pronoun errors, and incomplete sentences are an occasional consequence of this system due to software limitations, ambient noise, and hardware issues. Any formal questions or concerns about the content, text, or information contained within the body of this dictation should be directly addressed to the provider for clarification. . Impression & Plan Acute appendicitis Discharge Plan Visit Data Chief Complaint: Abdominal Pain Stated Complaint: ABD ON RT SIDE ED Provider: Deyanira Giang ED Midlevel Provider: Wan Kamara Discharge Problem: Acute appendicitis Patient Disposition: Admitted As Inpatient Discharge Instructions Interventions: ED Discharge Assessment Last Done: 01/08/21 10:10
[2021-01-09] MEDS: PIPERACILLIN/TAZOBACTAM 3.375 GM in DEXTROSE 5% 100 ML IV SCH (07:37)
[2021-01-09 07:40] LABS: Hemoglobin 11.5 g/dL (14.0-18.0); Mean Corpuscular Hemoglobin 29.2 pg (25-34); Mean Corpuscular Hgb Conc 32.9 g/dL (32-36); Mean Corpuscular Volume 88.8 fL (80-100); Mean Platelet Volume 12.1 fL (7.4-10.4); Platelet Count 126 K/uL (130-400); RDW Standard Deviation 45.8 fL (36.4-46.3); Red Blood Count 3.94 M/uL (4.7-6.1); White Blood Count 10.17 K/uL (4.8-10.8)
[2021-01-09 08:05] LABS: Basophils # (auto) 0.01 K/uL (0-0.2); Basophils % (auto) 0.1 %; Eosinophils # (auto) 0.03 K/uL (0-0.5); Eosinophils % (auto) 0.3 %; Immature Granulocytes # (auto) 0.02 K/uL (0.00-0.02); Immature Granulocytes % (auto) 0.2 %; Lymphocytes # (auto) 1.01 K/uL (1.2-3.4); Lymphocytes % (auto) 9.9 %; Monocytes # (auto) 0.69 K/uL (0.11-0.59); Monocytes % (auto) 6.8 %; Neutrophils # (auto) 8.41 K/uL (1.4-6.5); Neutrophils % (auto) 82.7 %
[2021-01-09 08:16] LABS: Albumin Level 2.6 gm/dl (3.4-5.0); BUN Creatinine Ratio 12.2 (10-20); Calcium 8.4 mg/dl (8.5-10.1); Creatinine Clr Calc Pharmacy 113.5 ml/min; Potassium 3.6 mmol/L (3.5-5.1)
[2021-01-09 08:19] LABS: Albumin Globulin Ratio 0.7 (0.9-2); Bilirubin,Total 2.8 mg/dl (0.2-1); Globulin 3.8 gm/dl (2.5-4.0); Total Protein 6.4 gm/dl (6.4-8.2)
--- NOTE | 2021-01-09 08:55 | Surgery Progress Note ---
Date of Service January 09, 2021 Assessment & Plan (1) History of laparoscopic appendectomy: Plan: POD#1 lap appy, doing well diet as tolerated potential discharge this afternoon activity restrictions, wound care, and return precautions reviewed Admission and Anticipated Discharge Date Admission Date: January 08, 2021 Subjective POD#1 lap appendectomy. Fever post op, otherwise no issues. eating breakfast but not much of an appetite Physical Exam Constitutional: WD/WN, vitals as above Gastrointestinal (Abdomen): normal bowel sounds, soft, nontender, no hepatosplenomegaly Inspection/Auscultation: + abdominal surgical incision (no infection) Results & Data ([facility]) Vital Signs (Past 12 Hours) Vital Signs Temp Pulse Resp BP Pulse Ox 01/09/21 07:19 37.4 C 97 H 18 133/81 91 01/09/21 04:10 37.5 C 94 H 19 123/76 96 01/08/21 22:16 36.9 C 85 17 111/68 93 Laboratory Results Laboratory Results - last 24 hr 01/08/21 01/09/21 01/09/21 10:25 06:31 06:31 WBC 10.17 RBC 3.94 L Hgb 11.5 L Hct 35.0 L MCV 88.8 MCH 29.2 MCHC 32.9 RDW Std Deviation 45.8 RDW Coeff of Omar 14.0 Plt Count 126 L MPV 12.1 H Immature Gran % (Auto) 0.2 Neut % (Auto) 82.7 Lymph % (Auto) 9.9 [place] % (Auto) 6.8 Eos % (Auto) 0.3 Baso % (Auto) 0.1 Neut # (Auto) 8.41 H Lymph # (Auto) 1.01 L [place] # (Auto) 0.69 H Eos # (Auto) 0.03 Baso # (Auto) 0.01 Immature Gran # (Auto) 0.02 Sodium 136 Potassium 3.6 Chloride 102 Carbon Dioxide 26 Anion Gap 7.0 BUN 10 Creatinine 0.85 Est Cr Clr Drug Dosing 113.5 Est GFR ( Amer) 109.0 Est GFR (Non-Af Amer) 94.0 BUN/Creatinine Ratio 12.2 Glucose 142 H POC Glucose 153 H Calcium 8.4 L Total Bilirubin 2.8 H AST 12 L ALT 13 Alkaline Phosphatase 75 Total Protein 6.4 Albumin 2.6 L Globulin 3.8 Albumin/Globulin Ratio 0.7 L Hepatitis C Ab Screen 01/09/21 06:31 WBC RBC Hgb Hct MCV MCH MCHC RDW Std Deviation RDW Coeff of Omar Plt Count MPV Immature Gran % (Auto) Neut % (Auto) Lymph % (Auto) [place] % (Auto) Eos % (Auto) Baso % (Auto) Neut # (Auto) Lymph # (Auto) [place] # (Auto) Eos # (Auto) Baso # (Auto) Immature Gran # (Auto) Sodium Potassium Chloride Carbon Dioxide Anion Gap BUN Creatinine Est Cr Clr Drug Dosing Est GFR ( Amer) Est GFR (Non-Af Amer) BUN/Creatinine Ratio Glucose POC Glucose Calcium Total Bilirubin AST ALT Alkaline Phosphatase Total Protein Albumin Globulin Albumin/Globulin Ratio Hepatitis C Ab Screen Pending PG Care Time/CCT Total # of Minutes Spent Total Time Spent with Patient: Total time spent is greater than 50% in coordination of care (as documented) at patient's floor/unit and/or counseling patient: Coding Level of Care Code None Diagnoses History of laparoscopic appendectomy Z90.49
[2021-01-09] MEDS ORDERED: dilTIAZem HCL 120 MG CAPCR PO SCH (09:00)
[2021-01-09] MEDS ORDERED: UMECLIDINIUM BROMIDE 62.5MCG/BLISTER 7 PUFFS/INHALER INH SCH (09:00)
[2021-01-09] MEDS ORDERED: LOSARTAN POTASSIUM 50 MG TAB PO SCH (09:00)
[2021-01-09] MEDS ORDERED: MONTELUKAST SODIUM 10 MG TABLET PO SCH (09:00)
[2021-01-09] MEDS ORDERED: FLUTICASONE/VILANTEROL 100/25MCG 14 PUFFS/INHALER INH SCH (09:00)
== END 2021-01-09 14:15 | disposition home or self-care (01) ==
LOC: ED 04:48 → ASU 10:10 → PACUINP 10:10 → 3N 19:02

== ENCOUNTER 2023-02-11 04:55 | Observation (INO) ==
--- NOTE | 2023-01-07 13:33 | PAT Medication Instructions ---
Medication Instructions Date of Service January 07, 2023 Home Medications Medication Instructions Recorded albuterol sulfate 90 mcg/actuation 2 puffs inhalation Q4H PRN cough 02/26/22 aerosol inhaler #8.5 grams syringe with needle 3 mL 20 gauge #100 ea 09/04/22 x 1" (BD Luer-Grant Syringe) sildenafil 50 mg tablet (Viagra) 100 mg PO DAILY PRN sexual 12/24/22 activity #14 tabs MEDICATION LIST: losartan 50 mg tablet (Cozaar) 50 mg PO QAM potassium chloride 20 mEq tablet,extended release 20 meq PO QAM albuterol sulfate 90 mcg/actuation aerosol inhaler 2 puffs inhalation Q4H PRN cough atorvastatin 20 mg tablet 20 mg PO QPM spironolactone 25 mg tablet 25 mg PO QAM torsemide 20 mg tablet 20 mg PO QAM budesonide-formoterol HFA 160 mcg-4.5 mcg/actuation aerosol inhaler (Symbicort) 2 puff inhalation BID metoprolol succinate 50 mg tablet,extended release 24 hr 25 mg PO BID testosterone cypionate 200 mg/mL intramuscular oil (Depo-Testosterone) 80 mg subcut Q7D sildenafil 50 mg tablet (Viagra) 100 mg PO DAILY PRN sexual activity semaglutide 0.25 mg or 0.5 mg (2 mg/1.5 mL) subcutaneous pen injector 0.5 mg subcut WK MEDICATION INSTRUCTIONS: Continue as directed albuterol sulfate 90 mcg/actuation aerosol inhaler 2 puffs inhalation Q4H PRN cough (use if needed; BRING TO HOSPITAL) budesonide-formoterol HFA 160 mcg-4.5 mcg/actuation aerosol inhaler (Symbicort) 2 puff inhalation BID testosterone cypionate 200 mg/mL intramuscular oil (Depo-Testosterone) 80 mg subcut Q7D DO NOT take the morning of surgery sildenafil 50 mg tablet (Viagra) 100 mg PO DAILY PRN sexual activity spironolactone 25 mg tablet 25 mg PO QAM losartan 50 mg tablet (Cozaar) 50 mg PO QAM potassium chloride 20 mEq tablet,extended release 20 meq PO QAM torsemide 20 mg tablet 20 mg PO QAM Take morning of surgery With a small sip of water, OTHERWISE NOTHING TO EAT OR DRINK AFTER MIDNIGHT: metoprolol succinate 50 mg tablet,extended release 24 hr 25 mg PO BID Take evening before surgery atorvastatin 20 mg tablet 20 mg PO QPM metoprolol succinate 50 mg tablet,extended release 24 hr 25 mg PO BID Other Notes STOP 7 DAYS PRIOR TO SURGERY AND NOTIFY PRESCRIBER; if additional medication is added please notify PAT clinic: semaglutide 0.25 mg or 0.5 mg (2 mg/1.5 mL) subcutaneous pen injector 0.5 mg subcut WK If you have any questions please call us at [phone] or [phone] or [phone] or [phone]
--- NOTE | 2023-01-17 11:28 | Anesthesiology Consultation ---
Date of Service January 17, 2023 Assessment & Plan (1) Encounter for pre-operative examination: - Check BSG AM DOS - Infectious disease screening: Per assessment on 01/17/23: No known infectious disease contacts or current infectious disease symptoms. No noted Covid positive test result in past 90 days. - Outpatient joint assessment: Pt currently scheduled for inpatient pathway. If surgeon requests review for outpatient joint pathway, patient is an acceptable candidate for outpatient joint program from anesthesia standpoint pending surgeon's office assessment that patient is motivated, has good support and completes Same Day Joint Program preop requirements. - S/P Laparoscopic appendectomy (01/08/21): Grade 3 view, MAC#4, ETT 7.5 at [facility] - Ozempic instructions: Patient takes on Fridays. Patient informed at PAT visit to stop 7 days prior to surgery- voiced understanding. DOS 02/11. Advised last dose to be 01/31/23. Patient advised to check with prescriber to see if alternative diabetic management changes recommended while holding Ozempic. - Cardiology visit (01/16/23): "The patient's most concerning subjective symptoms today as progressive bilateral right greater than left knee discomfort. He states his knee is swollen and he has been having difficulty ambulating which had prompted close follow-up with orthopedics and consideration of knee replacement. He still has some degree of subjective swelling in his hands, and states that his left ankle is a little bit more swollen than his right ankle. He has been tolerating his current medication regimen and notes vigorous urine output on his current treatment with torsemide and spironolactone.. Volume st atus is stable, with weight down 10 pounds compared to when torsemide was initially started. His most recent chemistry panel had taken place with [facility] on 01/09/2023 with findings of sodium of 138, potassium 4.6, chloride 96, CO2 30, BUN 17, creatinine 1.22. Recent lab work within the [facility] dated 01/03/2023 included hemoglobin of 13.7 which was normal, and most recent LDL cholesterol on 01/01/2023 was stable.. patient is stable from a cardiac perspective to proceed with orthopedic surgery with an estimated low risk of perioperative cardiac complication.. Fluid retention (Primary)-improved.. Mitral valve prolapse-moderate bileaflet prolapse with mild mitral regurgitation on echocardiogram performed yesterday 01/16/2023.. His echocardiogram report was reviewed, with stable findings. Continue surveillance with repeat echo at a interval of 1 to 2 years.. HTN, goal below 140/90- controlled, continue spironolactone, torsemide, losartan, metoprolol, current doses.. Coronary artery disease excluded-angiographically normal coronary arteries, February,.. Chest pain described, 10/14/22 does not sound characteristic of angina. No additional testing advised at this time." - Patient acceptable risk for surgery pending surgeon-ordered PCP preop evaluation (Dr. Pennington, appt 01/27). Chart Review Chart Review: Patient seen in Pre Admission Testing Teaching & Discussion Pre-Anesthesia Teaching/Discussion Notes: Instructed NPO after midnight before surgery,except medications with 15 cc of water. Medication instructions provided according to the PAT guidelines. History Surgery Operation Date: 02/11/23 10:15 Proposed Procedures p Right Total Knee Arthroplasty - Eliseo Dior MD Height/Weight Height: 6 ft 1 in Weight: 108.7 kg Allergies Allergy/AdvReac Type Severity Reaction Status Date / Time adhesive AdvReac Mild Skin Verified 01/15/23 10:26 redness Medications Home Medications Medication Instructions Recorded Confirmed Last Taken losartan 50 mg tablet (Cozaar) 50 mg PO QAM 03/31/19 01/06/23 01/07/21 potassium chloride 20 mEq 20 meq PO QAM 01/08/21 01/06/23 01/07/21 tablet,extended release albuterol sulfate 90 mcg/actuation 2 puffs inhalation Q4H PRN cough 02/26/22 01/06/23 Unknown aerosol inhaler #8.5 grams atorvastatin 20 mg tablet 20 mg PO QPM 03/22/22 01/06/23 Unknown spironolactone 25 mg tablet 25 mg PO QAM 03/22/22 01/06/23 Unknown torsemide 20 mg tablet 20 mg PO QAM 03/22/22 01/06/23 Unknown budesonide-formoterol HFA 160 2 puff inhalation BID 04/30/22 01/06/23 Unknown mcg-4.5 mcg/actuation aerosol inhaler (Symbicort) metoprolol succinate 50 mg 25 mg PO BID 04/30/22 01/06/23 Unknown tablet,extended release 24 hr syringe with needle 3 mL 20 gauge #100 ea 09/04/22 01/03/23 Unknown x 1" (BD Luer-Grant Syringe) testosterone cypionate 200 mg/mL 80 mg subcut Q7D 12/05/22 01/06/23 Unknown intramuscular oil (Depo-Testosterone) sildenafil 50 mg tablet (Viagra) 100 mg (2 x 50 mg) PO DAILY PRN 12/24/22 01/06/23 Unknown sexual activity #14 tabs semaglutide 0.25 mg or 0.5 mg (2 0.5 mg subcut WK 01/06/23 01/06/23 Unknown mg/1.5 mL) subcutaneous pen injector Past Medical History Medical History Chronic kidney disease Mitral valve prolapse Echo 01/2023: Mildly redundant mitral valve leaflets with bileaflet prolapse and mild MR Carpal tunnel syndrome, bilateral Diabetes mellitus, type 2 Sleep apnea CPAP (compliant) Hiatal hernia Arthritis Obesity Rhabdomyolysis 05/2018 [place] admission Osteoarthritis GERD (gastroesophageal reflux disease) Hypertension Hyperlipidemia Chronic obstructive pulmonary disease Exercise / Class Metabolic Activity III < 4 Walking/Shop/Light housework Past Family History Family History Other No family history of adverse response to anesthesia No pertinent family history Past Surgical History Surgical History History of tonsillectomy and adenoidectomy History of laparoscopic appendectomy Laparoscopic appendectomy (01/08/21): Grade 3 view, MAC#4, ETT 7.5 at [facility] History of cataract surgery R/L History of cardiac cath 2017 ([place])- no stents, normal coronary arteries History of surgery on arm RUE History of arthroscopy Right knee bone spur removal History of esophagogastroduodenoscopy (EGD) History of colonoscopy H/O palate surgery x2 History of tooth extraction History of nasal septoplasty History of vein stripping LLE Clubfoot, congenital R/L foot correction Past Anesthesia History No Hx of Anesthesia Complications and No Family Hx of Anesthesia Complications History of PONV No Hx of PONV and No Hx of Motion Sickness Social History Smoking Status: Never smoker Do You Dip or Chew Tobacco: No Hx Alcohol Use: Yes Alcohol type: hard liquor alcohol intake frequency: a few times a month substance use type: does not use Review of Systems Patient denies chest pain, shortness of breath, fever, chills, cough, wheezing, palpitations. Physical Exam Vital Signs VITALS BP 128/83 P 84 TEMP 98.8 SP02 97%RA RESP 16 PHYSICAL Significantly decreased cervical extension range of motion Full TMJ range of motion. TMD 3 finger breaths Mallampati Score 4 (small oral opening) Dentition: full upper denture, several missing on lower Lungs: clear throughout to auscultation Cardiac: regular rate and rhythm, no murmurs noted Spine: normal Carotid arteries: negative bruit Extremities: no LE edema Thick neck Lab Results Anesthesia Preop Results Results Anesthesia Widget: WBC 7.12 K/ul (4.8-10.8) 01/17/23 Hgb 13.1 g/dl (14.0-18.0) L 01/17/23 Hct 37.4 % (42.0-52.0) L 01/17/23 Plt 147 K/uL (130-400) 01/17/23 PT 10.4 Seconds (9.0-12.0) 01/17/23 PTT 25.9 Seconds (21.0-31.0) 01/17/23 INR 0.9 (0.9-1.1) 01/17/23 HA1c 6.4 % (4.5-5.6) H 01/01/23 Blood Type O Negative 01/17/23 Antibody Screen NEGATIVE 01/17/23 Testing Laboratory Results 01/09/23 SODIUM 138 POTASSIUM 4.6 CHLORIDE 96 CO2 30 BUN 17 CREATININE 1.22 GLUCOSE 138 Electrocardiogram Date: 01/16/23 Normal sinus rhythm at 79 bpm. LAD. Pulmonary disease. No significant change compared to 02/12/2022 per report. Chest X-Ray Date: 01/17/23 FINDINGS: No pneumothorax. No pleural effusions. The cardiac silhouette remains mildly enlarged. No focal lung consolidations to suggest a pneumonia. No evidence for pulmonary edema. A right azygos lobe is again noted. IMPRESSION: No significant change compared to the prior study. No acute process. Echocardiogram Date: 01/15/23 EF 60%. No regional wall motion abnormality. No LVH. Normal LV diastolic function and left atrial pressure. Mild RAD. Mildly redundant mitral valve leaflets with bileaflet prolapse and mild MR. Mild TR. Mildly elevated pulmonary artery pressures, PASP 37 mmHg. No change compared to 12/09/2017 study per report. Stress Test Date: 02/20/18 Abnormal Lexiscan nuclear stress test demonstrating apical lateral infarct with yoanna-infarct ischemia involving the mid and apical anterior wall and apical inferior wall. Gated SPECT images reveal normal myocardial thickening and wall motion. LVEF 64%. Subsequent cardiac cath 03/03/18 with normal coronary arteries* Cardiac Catheterization Date: 03/03/18 Dominant: Right Left Main (% Stenosis): Normal LAD (% Stenosis): Normal D1 (% Stenosis): Normal D2 (% Stenosis): Normal Circumflex (% Stenosis): Normal OM1 (% Stenosis): Normal OM2 (% Stenosis): Normal RCA (% Stenosis): Normal R PDA (% Stenosis): Normal R PL1 (% Stenosis): Normal R PL2 (% Stenosis): Normal AM (% Stenosis): Normal Post-Procedure Diagnosis: Normal Coronary Arteries Cervical Spine X-ray Date: 09/30/22 1. Moderate multilevel degenerative disc disease and facet arthrosis within the cervical spine. 2. Exam mildly compromised by artifact. C7 partially obscured. 3. 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 Other Testing Left ankle ultrasound Indication: LLE swelling + pain > ordered by PCP, will be seeing PCP for preop evaluation appt 01/27/23* Date: 01/10/23 1. No fluid collection or mass within the medial left ankle by sonography. 2. Subcutaneous fluid within the left ankle. This likely reflects edema although cellulitis could appear similar.
--- OUTSIDE RECORDS SUMMARY | 2023-02-11 04:58 | External Medical Summary | Summary of Care ---
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 Role Phone Roslyn Pennington MD Primary Care Provider [phone] Reason for Visit * Reason Comments eRx-Medication Refill Encounter Details Date Type Department Care Team (Late st Contact Info) Description 01/30/2023 Refill Cardiology, [facility] [address] [place] [id number] Herrera rAagon, DO [address] [place] [address] Dyslipidemia, goal LDL below 100; Coronary artery disease excluded Allergies Active Allergy Reactions Criticality Noted Date Comments Fentanyl 01/14/2023 Other Allergy (See Comments) Rash 019 "All pain patches" documented as of this encounter (statuses as of 01/30/2023) Medications Medication Sig Dispensed Refills Start Date End Date Status albuterol sulfate (PROVENTIL) (2.5 MG/3ML) 0.083% nebulizer solution 0 02/09/2018 Active Sulindac 200 MG Tablet 0 01/24/2018 Active montelukast (SINGULAIR) 10 MG Tablet 0 02/06/2018 Active BREO ELLIPTA 200-25 MCG/INH AEPB 0 05/12/2018 Active pantoprazole (PROTONIX) 40 MG TBEC Take 1 Tablet by mouth in the morning. 0 09/06/2019 Active dicyclomine (BENTYL) 10 MG Capsule TAKE 1 CAPSULE BY MOUTH 4 TIMES DAILY NEEDED FOR ABDOMINAL BLOATING GAS PAIN. TAKE 30 TO 60 MINUTES BEFORE MEALS 0 09/02/2019 Active fluticasone (FLONASE) 50 MCG/ACT nasal spray Administer 2 Sprays into each nostril daily. 16 g 5 10/08/2019 Active Symbicort 160-4.5 MCG/ACT Inhalation Aerosol Inhale 1 Puff by mouth in the morning and 1 Puff before bedtime. 0 12/09/2019 Active Spiriva Respimat 1.25 MCG/ACT Inhalation Aerosol Solution Inhale 1 Puff by mouth in the morning and 1 Puff before bedtime. 0 12/09/2019 Active metFORMIN HCl ER 500 MG Oral Tablet Extended Release 24 Hour (Glucophage XR) Take 1 Tablet by mouth daily with dinner. 0 Active Atorvastatin Calcium 20 MG Oral Tablet (Lipitor) Take 1 Tablet by mouth in the morning. 0 12/17/2020 Active Potassium Chloride ER 20 MEQ Oral Tablet Extended Release Take 1 Tablet by mouth in the morning. 0 01/25/2021 Active Torsemide 20 MG Oral Tablet (Demadex) Take 1 Tablet (20 mg) by mouth in the morning. 34 Tablet 11 02/12/2022 Active Spironolactone 25 MG Oral Tablet (Aldactone)Indicat ions:HTN, goal below 140/90,Fluid retention TAKE 1 TABLET BY MOUTH IN THE MORNING 90 Tablet 3 07/31/2022 Active CPAP every night at bedtime. 0 Active Testosterone Cypionate 200 MG/ML Intramuscular Kit Inject into a large muscle. 0 Active Ozempic (0.25 or 0.5 MG/DOSE) 2 MG/1.5ML Solution Pen-injector (Semaglutide(0.25 or 0.5MG/DOS)) Inject under the skin once a week. 0 Active Metoprolol Succinate ER 50 MG Oral Tablet Extended Release 24 Hour (toPROL XL)Indications:Sin us tachycardia,SVT (supraventricular tachycardia),HTN, goal below 140/90 Take 1/2 (one-half) tablet by mouth twice daily 30 Tablet 11 10/21/2022 Active Losartan Potassium 50 MG Oral Tablet (Cozaar)Indication s:Dyslipidemia, goal LDL below 100,Coronary artery disease excluded TAKE 1 TABLET BY MOUTH IN THE MORNING 90 Tablet 3 01/30/2023 Active Losartan Potassium 50 MG Oral Tablet (Cozaar)Indication s:Dyslipidemia, goal LDL below 100,Coronary artery disease excluded Take 1 Tablet (50 mg) by mouth in the morning. 30 Tablet 11 02/04/2022 3 Discontinued documented as of this encounter (statuses as of 01/30/2023) Active Problems Problem Noted Date Diagnosed Date COPD, group B, by GOLD 2017 classification 09/25 Overview: Per COPD GOLD Classification Irritable bowel syndrome wit h both constipation and diarrhea 12/10/2019 JULY on CPAP 02/23/2019 Atrial ectopy 08/07/2018 WILLSON (dyspnea on exertion) 03/20/2018 HTN, goal below 140/90 03/20/2018 Dyslipidemia, goal LDL below 100 03/20/2018 Coronary artery disease excluded 03/20/2018 Mitral valve prolapse 03/20/2018 documented as of this encounter (statuses as of 01/30/2023) Resolved Problems Problem Noted Date Diagnosed Date Resolved Date COPD, severity to be determined 03/20/2018 09/28/2020 Overview: Per COPD GOLD Classification documented as of this encounter (statuses as of 01/30/2023) Immunizations Name Administration Dates Next Due COVID-19 mRNA, LNP-s, No Pre serve, 2-Dose Series (Weight Wins) 05/12/2020,04/21/2020 SEASONAL INFLUENZA, PF, 6 M & Above, IM , (FLULAVAL or FLUZONE) 12/10/2019 documented as of this encounter Social History Tobacco Use Types Packs/Day Years Used Date Smoking Tobacco: Never Smokeless Tobacco: Never Alcohol Use Standard Drinks/Week Comments No 0 (1 standard drink = 0.6 oz pur e alcohol) Sex and Gender Information Value Date Recorded Sex Assigned at Not on file Gender Identity Not on file Sexual Orientation Not on file Job Start Date Occupation Industry Not on file Not on file Not on file documented as of this encounter Miscellaneous Notes * Telephone Encounter - Herrera Aragon DO - 01/30/2023 5:36 PM ESTSigned Prescriptions: Disp Refills Losartan Potassium 50 MG Oral Tablet (Coza*90 Tab*3 Sig: TAKE 1 TABLET BY MOUTH IN THE MORNING Authorizing Provider: HERRERA ARAGON * Telephone Encounter - Genny Crews COT - 01/30/2023 11:02 AM ESTPending Prescriptions: Disp Refills Losartan Potassium 50 MG Oral Tablet (Coza*90 Tab*3 Sig: TAKE 1 TABLET BY MOUTH IN THE MORNING * Telephone Encounter - Genny Crews COT - 01/30/2023 11:02 AM EST Did you pend patient's preferred pharmacy and medication before forwarding?yes Pharmacy: [facility] [address] [place] [address] [place] [address] Pending Prescriptions: Disp Refills Losartan Potassium 50 MG Oral Tablet (Coz*90 Tab*3 Sig: TAKE 1 TABLET BY MOUTH IN THE MORNING Last Visit: 01/16/2023 (in office), Visit date not found (telemedicine) Next Visit: 04/21/2023 If no future appointments scheduled, and last appointment is greater than a year ago, please schedule patient for a follow-up appointment Last date the medication was ordered: 02-04-2022 Is this request for a controlled substance?No Urine Drug Screen:No results found for this or any previous visit. Patient Phone Numbers Labs: Lab Results Component Value Date/Time CREAT 1.22 01/09/2023 12:00 AM CREAT 0.9 12/08/2018 11:21 AM POTASSIUM 4.6 01/09/2023 12:00 AM POTASSIUM 4.4 12/08/2018 11:21 AM ALT 33 02/22/2022 10:04 AM ALT 12 02/23/2018 11:36 AM documented in this encounter Plan of Treatment Upcoming Encounters Date Type Department Care Team (Late st Contact Info) Description 04/21/2023 9:30 AM EST Office Visit Cardiology, [facility] [address] [place] [address] Monica De PA-C [address] [place] [phone] Health Maintenance Due Date Last Done Comments Depression Screening 1971 HIV Screening 11/08/1974 Albumin/Creatinine Ratio 11/08/1977 Hepatitis C Screening 11/08/1977 DTaP,Tdap,and Td Vaccines (1 - Tdap) 11/08/1978 Cologuard 11/08/2004 Colonoscopy 11/08/2004 Colorectal Cancer Screening 11/08/2004 Fecal Occult Blood Test 11/08/2004 Sigmoidoscopy 11/08/2004 Zoster Vaccines (1 of 2) 11/08/2009 *COPD SEVERITY VERIFIED BY PFT 03/22/2018 Pneumococcal Vaccine: Pediatrics (0 to 5 Years) and At-Risk Patients (6 to 64 Years) (2 - PPSV23 or PCV20) 10/20/2019 08/25/2019 Hepatitis B (2 of 3 - 19+ 3-dose series) 10/22/2021 09/24/2021, 02/09/2018 COVID-19 Vaccine ( - 2022- season) 2022 08/07/2021, 12/12/2020, 05/12/2020, Additional history exists O2 ASSESSMENT COMPLETED IN PAST YEAR FOR COPD 09/24/2023 09/23/2022 GFR 01/10/2024 01/09/2023, 01/0 05/2022, 02/22/2022, Additional history exists Diabetes Screening 01/09/2026 01/09/2023, 0 03/19/2022, 02/22/2022, Additional history exists Alpha-1 Antitrypsin Completed 10/08/2019 Influenza Vaccine (FLU shot) Completed 12/2022, 12/10/2019, 12/07/2012, Additional history exists GARDASIL-HPV IMMUNIZATION SERIES Aged Out No longer eligible based on patient's age to complete this topic MENINGOCOCCAL (MENACTRA/MENVEO) Aged Out No longer eligible based on patient's age to complete this topic documented as of this encounter Medical Devices Implanted Type Area Stack Matcher Device Identifier Shelf Expiration Date Model / Serial / Lot Lens Intraoc 19.5 - [id number] - [id number] Implanted:Qty: 1 on 04/14/2018 by Lul Fonseca MD at OR [facility] Right: Eye [employer] 10/14/2022 [id number] / [id number] / Lens Intraoc 19.5 - [id number] - [id number] Implanted:Qty: 1 on 05/19/2018 by Lul Fonseca MD at OR [facility] Left: Eye [employer] 11/14/2022 [id number] / [id number] / [id number] documented as of this encounter Visit Diagnoses Diagnosis Dyslipidemia, goal LDL below 100 Other and unspecified hyperlipidemia Coronary artery disease excluded Observation for suspected cardiovascular disease documented in this encounter Care Teams Vault Service Mechanic Relationship Specialty Start Date End Date Roslyn Pennington MD [address] [place] [address] PCP - General Family Medicine 01/02/16 documented as of this encounter
--- OUTSIDE RECORDS SUMMARY | 2023-02-11 04:59 | External Medical Summary | Continuity of Care Document ---
Author Name Unknown Organization [facility] [address] [id number] Address [address] [place] [address] [id number] Care Team Providers Care Fiction And Nonfiction Writer Prose Name Role Phone Roslyn Pennington Primary Care Physician [phone] [facility] [id number] Date(s): 01/20/23 - 01/20/23 [facility] [employer] [address] [id number] [facility] [address] [place] [id number] Encounter Diagnosis Acquired bilateral pes cavus(Discharge Diagnosis) - 01/20/23 Hammertoe, bilateral(Discharge Diagnosis) - 01/20/23 T2DM (type 2 diabetes mellitus)(Discharge Diagnosis) - 01/20/23 S/P clubfoot correction at (Discharge Diagnosis) - 01/20/23 Peroneal tendinitis, left leg(Discharge Diagnosis) - 01/20/23 Left foot pain(Discharge Diagnosis) - 01/20/23 Discharge Disposition: Home or Self Care Attending Physician: GAURAV Jones Christina L Allergies, Adverse Reactions, Alerts Substance Reaction Severity Status Maxzide hypokalemia, hyperamylasemia Active fentaNYL rash Active Assessment and Plan Extracted from: Title:Follow Up Visit Author:GAURAV Jones, Jana Rizo Date:01/20/23 1.Acquired bilateral pes cavus 2.Hammertoe, bilateral 3.T2DM (type 2 diabetes mellitus) 4.S/P clubfoot correction at 5.Peroneal tendinitis, left leg 6.Left foot pain Discussed with patient today that I recommend he have an ultrasound-guided injection to the left foot to help with the significant swelling and discomfort did speak with his orthopedic surgeon and this it did get the okay since they says he will be having her knee replacement on the right knee. Patient has no other concerns we reviewed and discussed his x-rays at this time he will continue his orthopedic shoes with his inserts I recommend he follow-up with me in 1 to 2 months. [id number] visit,7-minute chart review,6 minx-ray review,12 minutes [id number] Immunizations Given and Recorded Vaccine Date Status Refusal Reason influenza virus vaccine, inactivated 12/24/22 Ebenezer rded influenza virus vaccine, inactivated 12/01/20 Give n influenza virus vaccine, inactivated 12/06/14 Give n influenza virus vaccine, inactivated 12/28/13 Give n influenza virus vaccine, inactivated 12/07/12 Give n influenza virus vaccine, inactivated 12/17/11 Give n hepatitis B pediatric vaccine 09/24/21 Recorded hepatitis A pediatric vaccine 09/24/21 Recorded SARS-CoV-2 (COVID-19) mRNA BNT-162b2 vax 08/07/21 Recorded SARS-CoV-2 (COVID-19) mRNA BNT-162b2 vax 12/12/20 Recorded SARS-CoV-2 (COVID-19) mRNA BNT-162b2 vax 1 05/12/20 Recorded SARS-CoV-2 (COVID-19) mRNA BNT-162b2 vax 2 04/21/20 Recorded pneumococcal 13-valent vaccine 3 08/25/19 Recorded hepatitis B adult vaccine 02/09/18 Recorded tetanus/diphtheria/pertuss, acel (Tdap) 03/06/ G iven 1Result Comment: 2020-12-13: Historical information-source unspecified 2Result Comment: 2020-12-13: Historical information-source unspecified 3Result Comment: 2019-12-24: Historical information-source unspecified Medications Albuterol (Eqv-ProAir HFA) 90 mcg/inh inhalation aerosol Start: 05/30/22 14:41:00 EDT, See Instructions, Disp# 9 g, Refills: 0, INHALE 1 PUFF BY MOUTH 4 TIMES DAILY NEEDED FOR WHEEZING, Pharmacy: [facility] Start Date: 05/30/22 Status: Ordered atorvastatin 20 mg oral tablet Start: 07/09/22 12:02:00 EDT, See Instructions, Disp# 30 tab, Refills: 11, TAKE 1 TABLET BY MOUTH ONCE DAILY AT BEDTIME, Pharmacy: [facility] Start Date: 07/09/22 Status: Ordered Cartia XT 120 mg/24 hours oral capsule, extended release Start: 09/18/18 9:12:00 EDT, 1 cap, PO, Daily Start Date: 09/18/18 Status: Ordered Dexcom G7 Cartography Professor Start: 09/30/22 15:05:00 EDT, See Instructions, Disp# 1 kit, Refills: 5, home glucose monitoring Dx: E11.9, Pharmacy: [facility] Start Date: 09/30/22 Status: Ordered Dexcom G7 Sensor Start: 09/30/22 15:05:00 EDT, See Instructions, Disp# 3 kit, Refills: 5, home glucose monitoring Dx: E11.9, Pharmacy: [facility] Start Date: 09/30/22 Status: Ordered Euflexxa 10 mg/mL intra-articular solution Start: 09/04/22 10:02:00 EDT, 20 mg =, intra-articular, q7days, Disp# 6 mL, Refills: 0, 3 syringes for R knee. Please ship to physician's office: Marium Sinha. Anton. [address] [place] [id number], Note to Pharmacy: R KNEE DJD M17.0, Pharmacy: [facility]... Start Date: 09/04/22 Stop Date: 09/25/22 Status: Ordered furosemide 20 mg oral tablet Start: 06/27/20 10:00:00 EDT, 1 tab, PO, Daily, prn for leg swelling Start Date: 06/27/20 Status: Ordered lidocaine 4% topical film Start: 10/05/19 15:39:00 EDT, See Instructions, Disp# 14 patch, do not leave patch on for more than8 hours at a time, Pharmacy: [facility], 187, cm, 09/07/19 10:00:00 EDT, Height Start Date: 10/05/19 Status: Ordered losartan 50 mg oral tablet Start: 08/20/18 13:28:00 EDT, 1 tab, PO, Daily, Disp# 30 tab, other Start Date: 08/20/18 Status: Ordered Metoprolol Succinate ER 25 mg oral tablet, extended release Start: 09/18/18 9:12:00 EDT, 1 tab, PO, Daily Start Date: 09/18/18 Status: Ordered montelukast 10 mg oral tablet Start: 08/03/19 15:41:00 EDT, 1 tab, PO, qPM Start Date: 08/03/19 Status: Ordered Ozempic (0.25 mg or 0.5 mg dose) 2 mg/3 mL subQ pen Start: 12/30/22 13:18:00 EDT, 0.5 mg, subQ, q7days, Disp# 3 mL, Refills: 0, SITES., Pharmacy: [facility] Start Date: 12/30/22 Status: Ordered Potassium Chloride (Eqv-K-Tab) 20 mEq oral tablet, extended release Start: 09/30/22 15:04:00 EDT, See Instructions, Disp# 30 tab, Refills: 5, Take 1 tablet by mouth once daily, Pharmacy: [facility] Start Date: 09/30/22 Status: Ordered Protonix 20 mg oral delayed release tablet Start: 01/09/23 8:56:00 EDT, 1 tab, PO, Daily, Disp# 30 tab, Refills: 2, Pharmacy: [facility] Start Date: 01/09/23 Status: Ordered Requip 0.5 mg oral tablet Start: 02/01/20 10:05:00 EST, 1 tab, PO, qhs, Disp# 30 tab, Pharmacy: [facility] Start Date: 02/01/20 Stop Date: 03/02/20 Status: Ordered spironolactone 25 mg oral tablet Start: 03/29/22 8:49:00 EST, 1 tab, PO, Daily Start Date: 03/29/22 Status: Ordered Symbicort 160 mcg-4.5 mcg/inh inhalation aerosol Start: 08/21/22 11:39:00 EDT, See Instructions, Disp# 11 g, Refills: 2, INHALE 2 PUFFS BY MOUTH TWICE DAILY RINSE MOUTH AND THROAT AFTER USE, Brand Medically Necessary, Pharmacy: [facility] Start Date: 08/21/22 Status: Ordered Testosterone Cypionate 100 mg/mL intramuscular solution Start: 11/08/22 14:33:00 EDT, 100 mg =, IM, [id number], per endocrinology Start Date: 11/08/22 Status: Ordered torsemide 20 mg oral tablet Start: 05/21/22 9:51:00 EST Start Date: 05/21/22 Status: Ordered Ultram 50 mg oral tablet Start: 11/19/22 12:53:00 EDT, See Instructions, Disp# 20 tab, Refills: 0, 1-2 tab PO q6h as needed for pain, Pharmacy: [facility] Start Date: 11/19/22 Status: Ordered Vitamin B6 50 mg oral tablet Start: 12/31/19 10:51:00 EDT, 1 tab, PO, Daily, Disp# 30 tab, other Start Date: 12/31/19 Status: Ordered Mental Status 01/20/23 Barriers to Learning one year None evide nt Mandatory Health Literacy Documentation Yes Health Literacy Communication Barriers N ever Primary Language Arabic Problem List Condition Confirmation Course Effective Dates Status H ealth Status Informant Bloating Confirmed Active Abdominal pain Confirmed Active Acute hyponatremia Confirmed Active Anemia Confirmed Active Arthritis of knee, left Confirmed Active Acquired bilateral pes cavus Confirmed Active Bilirubin level - finding Confirmed Active Body mass index 25-29 - overweight Confirmed Active Left carpal tunnel syndrome Confirmed Active Hemochromatosis carrier Confirmed Active Chest pain Confirmed Active Chronic obstructive lung disease Confirmed Active Leg cramps Confirmed Active CT of abdomen abnormal Confirmed Active Diastasis of rectus abdominis Confirmed Active Dislocation of right radial head Confirmed Active Dystrophic radiologic calcification Confirmed Active Edema of lower extremity Confirmed Active Epigastric pain Confirmed Active Esophageal dysphagia Confirmed Active Pain in both feet Confirmed Active Left foot pain Confirmed Active S/P clubfoot correction at Confirmed Active Hammertoe, bilateral Confirmed Active Left hand pain Confirmed Active Heart murmur Confirmed Active Hiatal hernia Confirmed Active Hyperlipidemia Confirmed Active HTN (hypertension) Confirmed Active Testosterone deficiency Confirmed Active Inguinal hernia Confirmed Active Knee pain Confirmed Active Lateral epicondylitis, left elbow Confirmed Active LLQ pain Confirmed Active Leg edema Confirmed Active Mass of right thigh Confirmed Active Right median nerve neuropathy Confirmed Active Neck pain Confirmed Active Neck pain Confirmed Active Nocturia Confirmed Active Non-alcoholic fatty liver Confirmed Active OBESITY, UNSPECIFIED Confirmed Active Sleep disorder due to a general medical condition, mixed type Confirmed Active Osteoarthritis of right knee Confirmed Active Elbow pain Confirmed Active Left hand paresthesia Confirmed Active Peroneal tendinitis, left leg Confirmed Active PAC (premature atrial contraction) Confirmed Active Elevated ferritin Confirmed Active Raynaud disease Confirmed Active Low libido Confirmed Active SHOULDER PAIN 1 Confirmed Active Sleep apnea Confirmed Active Strain of neck muscle Confirmed Active T2DM (type 2 diabetes mellitus) Confirmed Active Weight disorder Confirmed Active 1R side Diagnosis Diagnosis Type Effective Dates Health Status Clinical Service Informant Peroneal tendinitis, left leg Discharge Diagnosis 01/20/23 Left foot pain Discharge Diagnosis 01/20/23 T2DM (type 2 diabetes mellitus) Discharge Diagnosis 01/20/23 Hammertoe, bilateral Discharge Diagnosis 01/20/23 S/P clubfoot correction at Discharge Diagnosis 01/20/23 Acquired bilateral pes cavus Discharge Diagnosis 01/20/23 Procedures Procedure Date Related Diagnosis Body Site Status X-ray of cervical spine 1 09/30/22 Completed Ultrasound of ankles and bra chial index ltd 2 08/20/22 Completed Colonoscopy 3, 4 04/26/22 Complete d Chest X-ray 5 02/26/22 Completed Chest X-ray 6 02/05/22 Completed Plain X-ray of left hand 7 12/26/21 Completed X-ray of rib, right 8 11/22/21 Com pleted X-ray of thoracic spine 9 11/22/[address] angiography of chest with contrast 10 04/25/21 Completed Venous doppler ultrasonograp hy bilateral lower extrmity 11 04/25/[address] of abdomen and pelvis wit hout contrast 12 01/08/21 Completed Venous doppler ultrasonograp hy LE LT 13 12/05/[address] of abdomen and pelvis 14 11/06/20 Completed Shave biopsy and cauterization of skin 02/29/[address] of abdomen 08/[address] of abdomen and pelvis wit h contrast 15 03/31/19 Completed Chest x-ray 16 03/11/19 Completed Shave biopsy 17 03/02/19 Completed Nuclear medicine 18, 19 02/26/19 C ompleted Ultrasound scan of upper abdomen 20 02/01/[address] of abdomen and pelvis wit hout contrast 21 01/26/19 Completed SLEEP STUDY ATTENDED 11/23/18 Comp leted 12 lead ECG (regime/therapy) 06/05/18 Completed Plain chest X-ray (procedure) 06/05/18 Completed Ultrasonography of bilateral kidneys 06/01/18 Completed US scan of gallbladder (procedure) 06/01/18 Completed 12 lead ECG (regime/therapy) 05/31/18 Completed Computed tomography of cervi jf spine without contrast (procedure) 05/31/18 Com pleted Plain chest X-ray (procedure) 05/31/18 Completed Hepatobiliary ultrasound 22 05/29/18 Completed NM hepatobiliary 05/29/18 Complete d Computerized axial tomograph y of thorax with contrast (procedure) 05/28/[address] of abdomen and pelvis 23 05/15/[address] of abdomen and pelvis wit hout contrast 05/15/18 Completed Ultrasonography of abdomen (procedure) 05/04/18 Completed US EXAM ABDOM COMPLETE 24 05/04/18 Completed Duplex scan of lower limb ar teries (procedure) 03/09/18 Completed Cardiac catheter 25 03/03/18 Compl eted Endoscopy of upper gastroint estinal tract and banding of esophageal varices 26 02/18/18 Completed Fungal Culture 02/18/18 Completed Fungal Smear 02/18/18 Completed Mycology culture (procedure) 02/18/18 Completed Spirometry 27 12/23/17 Completed Plain chest X-ray (procedure) 12/15/17 Completed 12 lead ECG (regime/therapy) 12/03/17 Completed Plain chest X-ray (procedure) 12/03/17 Completed US scan of gallbladder (procedure) 12/03/17 Completed Computed tomography angiogra phy of pulmonary artery (procedure) 11/26/17 Com pleted Computed tomography of abdom en and pelvis with contrast (procedure) 11/26/17 Completed Doppler ultrasonography of v eins of bilateral lower extremities 11/26/17 Comp leted Plain chest X-ray (procedure) 11/26/17 Completed Full sleep study 28 10/27/17 Compl eted Doppler peripheral vascular flow study 29 07/11/17 Completed Colonoscopy 30, 31, 32, 33, 34, 35 02/28/17 Completed Upper GI endoscopy 36 02/28/17 Com pleted Shoulder X-ray 37 04/27/14 Complet ed foot surgery Completed left leg veins Completed right arm surgery Complet ed right knee surgery Comple lina throat operation Complete d Tonsillectomy Completed 1Impression; 1. Moderate multilevel degenerative disc disease and facet arthrosis within the cervical spine. 2. Exam mildly compromised by artifact. C7 partially obscured. 3. 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 2Impression: Normal SATHISH's 3Pathology: polyp,hepatic flexure, polypectomy: fragments of tubular adenoma. Repeat 3 years. 4One 6mm polyp at the hepatic flexure, removed with a hot snare. Resected and retrieved. Medium-sized lipoma at the hepatic flexure. Repeat in 3 years. 5Impression: Cardiomegaly with no active disease in the chest. 6cardiomegaly without acute process. 7impression: Mild osteoarthritis within the left hand and wrist. No fracture 8[facility] Impression: 1. No acute processes of the chest 2. No acute rib fracture or pneumothorax identified 9[facility] Impression: 1. Degenerative changes without acute fracutre or subluxation 10impression: No evidence of pulmonary embolism 11impression: No DVT within the right or left lower extremity 12Acute appendicitis with appendicolith. No abscess or perforation is seen the reactive fat strandingis seen. 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 13No sonographic evidence of deep venous thrombosis 141. There are acute infectious or inflammatory findings in the abdomen and pelvis 2. Hepatic steatosis 3. Punctate left renal calculus 4. Additional chronic findings as above 151. No acute intra-abdominal or pelvic findings 2. No evidence of bowel obstruction. No evidence of free air 3. No evidence of acute diverticulitis. Normal appendix 4. 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 Hepatic steatosis 161. Focal pleural thickening along the right midlung similar to prior exam and nonspecific, possiblyposttraumatic or prominent extrapleural fat. 2. No convincing evidence of acute cardiopulmonary disease. 17left submandibular area 18No evidence for cystic duct obstruction Gallbladder ejection fraction calulated to be 65% 19HIDA 20RUQ ultrasound Impression: 1. Hepatic steatosis 2. There are no shadowing gallstones identified, and there is no sonographic evidence of acute cholecystitis. 3. Mild gallbladder wall thickening is nonspecific and of indeterminant significance. If there is strong clinical concern for acute cholecystitis a nuclear hepatobiliary scan could be considered. 211. Mild central mesenteric fat stranding which is slightly progressed suggestive of a chronic mesenteric panniculitis 2. Persistent bladder wall thickening with adjacent inflammatory change. This may be due to chronicoutlet obstruction from the prostate gland. Recommend correlate with urinalysis to exclude a cystitis 3. Questionable minimal inflammatory change surrounding the gallbladder is also stable and is likely chronic. However, if the patient is complaining of right upper quadrant pain then consider dedicated abdominal ultrasound to exclude the less likely possibility of a developing acute cholecystitis 4. No bowel wall thickening or obstruction 5. Trace right pleural effusion 6. Hepatic steatosis 22IMPRESSION: Normal hepatobiliary scan, No evidence of acute cholecystitis. 23Impression 1, No evidence of bowel obstruction, no evidence of free air 2. Normal appendix, no evidence of accute diverticulitis 3. No renal, renal, ureteral or bladder calculi identified 4. Nonspecific 18mm hypodense lesion within the medial segment left lobe of the liver, possibly representing focal fat. this appears to have been present on prior studies 5. Stable 23mm calcified lesion abutting the lrsser trochanter of the proximal right femur 241. Borderline splenomegaly. 2. Hyperechogenic and heterogeneous hepatic parenchyma indicates underlying fibrosis or steatosis. 25Cornary angiography,, left heart cath and femoral artery angiography 26IMPRESSION: -monilial esophagitis. Cells for cytology obtained. -normal stomach. -normal examined duodenum. RECOMMENDATION: -resume previous diet. -continue present medications. -await results from esophageal brushings. -return to primary care physician as previoulsy scheduled. 27Spirometry shows a mild obstructive pattern with an inabillity to exclude coexistent restriction. Repeat study done following bronchodilators showed a significant decline in function. This is likely related to either fatigue or decrease effort. Advise clinical correlation. Clin Nurse Spec reported the effort was fair and multiple attempts were made with the patient to complete spirometry. 28The findings are consistent with a normal apnea hypopnea index. 29left lower extremity. Normal study. No abnormality found in the contralateral common femoral vein. 30path tubular adenoma all 3 sites 31pathology - stomach-mild predominately chronic antritis is seen 32no tumor is seen. colon-tubular adenoma. [id number] consistent with tubular adenoma. High grade glandulare dysplasia and carcinoma are not seen 33COLO to cecum: sigmoid diverticulosis, splenic flex polyp hot bx, cecal polyp cold bx, rectal polyphot bx, splenic flex lipoma 34One 3mm polyp in the ascending colon. One 5mm polyp in the transverse colon. repeat based on pathology 35repeat colo 3 years 36normal exam 371. no acute fractures or subluxations identified. 2. Suspected clacific tendinitis 3. Stable exostosis arising from the superior margin of the acromion Social History Social History Type Response Smoking Status Never smoked cigaret aldo Sex Male Ortho Outpt Note * GAURAV Jones, Philomena Rizo: PERFORM Event Display: Ortho Outpt Note Authored Date: [id number] Chief Complaint left heel/ ankle swelling for a few months Primary Care Provider MD Gorge, Roslyn Lafleur Patient is a very pleasant 62-year-old male last seen by myselfApril 2022. History of clubfoot reconstructive surgery. In the past I have suggested physical therapy to help with his gait and mobilityespecially with regards to peroneal tendinitis which he is prone to developing. I had u ltrasound evaluation and injection of the peroneal tendon ordered in the past. I feel this likelystrain secondary to the nature of his foot type which is pes cavus. I recommended orthotics and provided him with a prescription and he had orthotics made at [facility]. The ultrasound performed in Octoberhowed diffuse tendinopathic changeshe had significant improvement from a combination of the injection PT and the orthotics. He has moderate hammertoe deformitybut did not develop any calluses. Today his main concern is left heel and ankle swelling. Patient is having arthritic pain mainly in the dorsal aspect of his left foot this is likely secondary to him favoringthe left foot from right knee issues he is scheduled for surgery for the right knee Review of Systems Type 2 diabetes Objective Physical Exam Problem focused bilateral feet: Dorsalis pedis and posterior tibial pulses are fully palpable 2 out of 4 capillary fill time less than 3 seconds skin turgor good to all digits of both feet pedal hair is noted to be present. Patient has a history ofclubfoot reconstructive surgery as a kid. As a result he has developed significant significant pes cavus foot deformities bilaterallyandhammertoe deformities as a result ofmuscle imbalancefrom his pes cavus foot type. Hammertoe deformities are flexible in nature. There is significant pain relief secondary to arthritishas improved since patient has been wearing his orthopedic shoes Today main area of pain and discomfort is the left foot at the dorsal aspect this is likely correlating to the significant arthritis of the talonavicular joint where there is a rather larger palpableexostosis in the dorsal central portion of his left foot. To palpation this iscausing immediatediscomfort. There is swellingsecondary to the arthritic pain patient's PCP ordered an ultrasound which was performed at [facility] showing the swellingthe swelling is secondary to arthritishe is in the past developed similar issues of arthritis and responded well to ultrasound-guided injection. X-ray dictation 3 views left foot: 3 views of theleft foot show significant midfoot arthritis most notable attalonavicular joint. Lateral view of the left foot shows moderate to severe arthritisvery again notable at talonavicular jointmoderate to severe at subtalar jointwith decreased arch height noted. I personally performed the interpretation of 3 views of the left foot. Assessment/Plan 1.Acquired bilateral pes cavus 2.Hammertoe, bilateral 3.T2DM (type 2 diabetes mellitus) 4.S/P clubfoot correction at 5.Peroneal tendinitis, left leg 6.Left foot pain Discussed with patient today that I recommend he have an ultrasound-guided injection to the left foot to help with the significant swelling and discomfort did speak with his orthopedic surgeon and this it did get the okay since they says he will be having her knee replacement on the right knee. Patient has no other concerns we reviewed and discussed his x-rays at this time he will continue his orthopedic shoes with his inserts I recommend he follow-up with me in 1 to 2 months. [id number] visit,7-minute chart review,6 minx-ray review,12 minutes [id number] Electronic Signature on File Electronically Reviewed/Signed by: Philomena Jones DPM Author Signature Dt/Tm:01/20/2023 10:56 AM Division of Sports Medicine CLR Patient Care team information Care Team Personnel Name: MD Damico Jonathan D Position: Physician - Family Med Member Role: Lifetime Relationship Address: Address: [address] [place] [address] [place] Name: MD Gorge, Roslyn Position: Physician - Family Med Member Role: Primary Care Provider Address: Address: [address] [place] [address] [place] Name: GAURAV Jones, Philomena Rizo Position: Physician - Podiatry Member Role: Lifetime Relationship Address: Address: [address] [place] [address] [place] Care Team Related Persons Name: RAE DUQUE
--- OUTSIDE RECORDS SUMMARY | 2023-02-11 04:59 | External Medical Summary | Continuity of Care Document ---
Author Name Unknown Organization [facility] [address] [place], [place] [address] Address [address] [place] [phone] Care Team Providers Care Boiler Room Operator Name Role Phone Roslyn Pennington Primary Care Physician [phone] Encounter [facility] [id number] Date(s): 01/21/23 - 01/21/23 [facility] [employer] [address] [place] [id number] [facility] [address] [place] [id number] Encounter Diagnosis Left foot pain(Discharge Diagnosis) - 01/21/23 Arthritis of left midfoot(Discharge Diagnosis) - 01/21/23 Acquired bilateral pes cavus(Discharge Diagnosis) - 01/21/23 Discharge Disposition: Home or Self Care Attending Physician: DO Zimmerman Mehwish Referring Physician: GAURAV Jones Christina L Allergies, Adverse Reactions, Alerts Substance Reaction Severity Status Maxzide hypokalemia, hyperamylasemia Active fentaNYL rash Active Assessment and Plan Extracted from: Title:Office Visit Note Author:DO Zimmerman Me hwish Date:01/21/23 1.Left foot pain 2.Arthritis of left midfoot 3.Acquired bilateral pes cavus Risks and benefits of the procedure were discussed. Patient would like to proceed with the injection, see procedure note below. After care and return precautions discussed. Follow-up as scheduled with Dr. Jones. PROCEDURE NOTE: Risks/benefits/alternatives of corticosteroid injection of left talonavicular joint_ werediscussed with patient including risks of infection, bleeding, pain during procedure, and inadequate relief of symptoms. Patient agreeable to proposed procedure. Consent was obtained [facility] protocol. The site of injection was confirmed and the patient wascorrectly identified. I was assisted with this procedure by our office nurse.Color Doppler wasperformed to ensure that there were no vascular structures in the projected needle pathway. Using sterile technique, the area was cleansed with chloraprep and sterile ultrasound gel was applied to the ultrasound transducer. Under ultrasound guidance, a25 gauge needle was advanced into theleft talonavicular jointusing anout -of- plane approach. 0.5mL 1% Lidocaine and 20mg Depomedrol (40mg/ml) was injected and visualized entering the desired space. There were no complications. Area was hemostatic at the end of procedure and needle site was covered with a band-aid. Patient tolerated the procedure well. Immunizations Given and Recorded Vaccine Date Status [...] DAILY NEEDED FOR WHEEZING, Pharmacy: [facility] Start Date: 05/30/22 Status: Ordered atorvastatin 20 mg oral tablet Start: 07/09/22 12:02:00 EDT, See Instructions, Disp# 30 tab, Refills: 11, TAKE 1 TABLET BY MOUTH ONCE DAILY AT BEDTIME, Pharmacy: [facility] Start Date: 07/09/22 Status: Ordered Cartia XT 120 mg/24 hours oral capsule, extended release Start: 09/18/18 9:12:00 EDT, 1 cap, PO, Daily Start Date: 09/18/18 Status: Ordered Dexcom G7 Binding Machine Operator Start: 09/30/22 15:05:00 EDT, See Instructions, Disp# 1 kit, Refills: 5, home glucose monitoring Dx: E11.9, Pharmacy: [facility] Start Date: 09/30/22 Status: Ordered Dexcom G7 Sensor Start: 09/30/22 15:05:00 EDT, See Instructions, Disp# 3 kit, Refills: 5, home glucose monitoring Dx: E11.9, Pharmacy: [facility] Start Date: 09/30/22 Status: Ordered Euflexxa 10 mg/mL intra-articular solution Start: 09/04/22 10:02:00 EDT, 20 mg =, intra-articular, q7days, Disp# 6 mL, Refills: 0, 3 syringes for R knee. Please ship to physician's office: Nella0 Micheal Sinha. Anton. [address] [place] [address], [place] [address], Note to Pharmacy: R KNEE DJD M17.0, [...] more than8 hours at a time, Pharmacy: [facility], 187, cm, 09/07/19 10:00:00 [...] mL, Refills: 0, SITES., Pharmacy: [facility] Start Date: 12/30/22 Status: Ordered Potassium Chloride (Eqv-K-Tab) 20 mEq oral tablet, extended release Start: 09/30/22 15:04:00 EDT, See Instructions, Disp# 30 tab, Refills: 5, Take 1 tablet by mouth once daily, Pharmacy: [facility] Start Date: 09/30/22 Status: Ordered Protonix 20 mg oral delayed release tablet Start: 01/09/23 8:56:00 EDT, 1 tab, PO, Daily, Disp# 30 tab, Refills: 2, Pharmacy: [facility] Start Date: 01/09/23 Status: Ordered Requip 0.5 mg oral tablet Start: 02/01/20 10:05:00 EST, 1 tab, PO, qhs, Disp# 30 tab, Pharmacy: [facility] Start Date: 02/01/20 Stop Date: 03/02/20 Status: Ordered spironolactone 25 mg oral tablet Start: 03/29/22 8:49:00 EST, 1 tab, PO, Daily Start Date: 03/29/22 Status: Ordered Symbicort 160 mcg-4.5 mcg/inh inhalation aerosol Start: 08/21/22 11:39:00 EDT, See Instructions, Disp# 11 g, Refills: 2, INHALE 2 PUFFS BY MOUTH TWICE DAILY RINSE MOUTH AND THROAT AFTER USE, Brand Medically Necessary, Pharmacy: [place] [id number] Start Date: 08/21/22 Status: Ordered Testosterone Cypionate 100 mg/mL intramuscular solution Start: 11/08/22 14:33:00 EDT, 100 mg =, IM, [id number], per endocrinology Start Date: 11/08/22 Status: Ordered torsemide 20 mg oral tablet Start: 05/21/22 9:51:00 EST Start Date: 05/21/22 Status: Ordered Ultram 50 mg oral tablet Start: 11/19/22 12:53:00 EDT, See Instructions, Disp# 20 tab, Refills: 0, 1-2 tab PO q6h as needed for pain, Pharmacy: [facility] Start Date: 11/19/22 Status: Ordered Vitamin B6 50 mg oral tablet Start: 12/31/19 10:51:00 EDT, 1 tab, PO, Daily, Disp# 30 tab, other Start Date: 12/31/19 Status: Ordered Mental Status 01/21/23 Barriers to Learning one year None evide nt Mandatory Health Literacy Documentation Yes Health Literacy Communication Barriers N ever Primary Language [place] Problem List Condition Confirmation Course Effective Dates [...] Diagnosis Diagnosis Type Effective Dates Health Status Cl inical Service Informant Left foot pain Discharge Diagnosis 01/21/23 Arthritis of left midfoot Discharge Diagnosis 01/21/23 Acquired bilateral pes cavus Discharge Diagnosis 01/21/23 Procedures Procedure Date Related Diagnosis Body Site [...] left hand and wrist. No fracture 8[facility] Impression: 1. No acute processes of the chest 2. No acute rib fracture or pneumothorax identified 9[facility] Impression: 1. Degenerative changes without acute fracutre [...] fatigue or decrease effort. Advise clinical correlation. Well Service Floor Worker reported the effort was fair and multiple attempts were made with the patient to complete spirometry. 28The findings are consistent with a normal apnea hypopnea index. 29left lower extremity. Normal study. No abnormality found in the contralateral common femoral vein. 30path tubular adenoma all 3 sites 31pathology - stomach-mild predominately chronic antritis is seen 32no tumor is seen. colon-tubular adenoma. [id number] consistent with tubular adenoma. High grade glandulare [...] aldo Sex Male Ortho Outpt Note * DO Elsie, Estephanie: PERFORM Event Display: Ortho Outpt Note Authored Date: [id number] Chief Complaint USGI left foot History of Present Illness Jacky is a 62yo male who presents for US guided left foot- talonavicular injection. Referred by Dr. Jones. Physical Exam Left foot: no erythema at site of planned injection. There is diffuse swelling of his ankle/leg. Assessment/Plan 1.Left foot pain 2.Arthritis of left midfoot 3.Acquired bilateral pes cavus Risks and benefits of the procedure were discussed. Patient would like to proceed with the injection, see procedure note below. After care and return precautions discussed. Follow-up as scheduled with Dr. Jones. PROCEDURE NOTE: Risks/benefits/alternatives of corticosteroid injection of left talonavicular joint_ werediscussed with patient including risks of infection, bleeding, pain during procedure, and inadequate relief of symptoms. Patient agreeable to proposed procedure. Consent was obtained [facility] protocol. The site of injection was confirmed and the patient wascorrectly identified. I was assisted with this procedure by our office nurse.Color Doppler wasperformed to ensure that there were no vascular structures in the projected needle pathway. Using sterile technique, the area was cleansed with chloraprep and sterile ultrasound gel was applied to the ultrasound transducer. Under ul trasound guidance, a25 gauge needle was advanced into theleft talonavicular jointusing anout -of- plane approach. 0.5mL 1% Lidocaine and 20mg Depomedrol (40mg/ml) was injected and visualized entering the desired space. There were no complications. Area was hemostatic at the end of procedureand needle site was covered with a band-aid. Patient tolerated the procedure well. Problem List/Past Medical History Ongoing Abdominal pain Acquired bilateral pes cavus Acquired fixed flexion deformity of the elbow Acute hyponatremia Anemia Ankle pain Arthritis of knee, left Arthritis of right shoulder region Bilirubin level - finding Bloating Body mass index 25-29 - overweight Chest pain Chronic obstructive lung disease CT of abdomen abnormal Diastasis of rectus abdominis Dislocation of right radial head Diverticulosis DJD (degenerative joint disease), lumbosacral Dystrophic radiologic calcification Edema of lower extremity Elbow pain Elevated ferritin Epigastric pain Esophageal dysphagia GERD H/O varicose vein stripping Hammertoe, bilateral Heart murmur Heart murmur Hemochromatosis carrier Hiatal hernia Hiatal hernia HTN (hypertension) Hyperlipidemia Inguinal hernia Knee pain Lateral epicondylitis, left elbow Left carpal tunnel syndrome Left foot pain Left hand pain Left hand paresthesia Leg cramps Leg edema Leukocytosis LLQ pain Low libido Mass of right thigh MVP (mitral valve prolapse) Neck pain Neck pain Nocturia Non-alcoholic fatty liver OBESITY, UNSPECIFIED Osteoarthritis of right knee PAC (premature atrial contraction) Pain in both feet Peroneal tendinitis, left leg Raynaud disease Right median nerve neuropathy S/P clubfoot correction at SHOULDER PAIN Sleep apnea Sleep disorder due to a general medical condition, mixed type Strain of neck muscle T2DM (type 2 diabetes mellitus) Testosterone deficiency Thrombopenia Umbilical hernia Varicose vein Venous insufficiency Weight disorder Historical Acute renal failure syndrome Adrenal mass LATOSHA (acute kidney injury) Back pain Cervical arthritis Constipation COPD exacerbation Helicobacter pylori (H. pylori) Low back pain Patient encounter status Rhabdomyolysis Snores Tachycardia Procedure/Surgical History X-ray of cervical spine (09/30/2022)Ultrasound of ankles and brachial index ltd (08/20/2022)Colonoscopy (04/26/2022)Chest X-ray (02/26/2022)Chest X-ray (02/05/2022)Plain X-ray of left hand (12/26/2021)X-ray of thoracic spine (11/22/2021)X-ray of rib, right (11/22/2021)CT angiography of chest with contrast (04/25/2021)Venous doppler ultrasonography bilateral lower extrmity (04/25/2021)CT of abdomen and pelvis without contrast (01/08/2021)Venous doppler ultrasonography LE LT (12/05/2020)CT of abdomen and pelvis (11/06/2020)Shave biopsy and cauterizationof skin (02/29/2020)CT of abdomen (08/2019)CT of abdomen and pelvis with contrast (03/31/2019)Chest x-ray (03/11/2019)Shave biopsy (03/02/2019)Nuclear medicine (02/26/2019)Ultrasound scan of upper abdomen (02/01/2019)CT of abdomen and pelvis without contrast (01/26/2019)SLEEP STUDY ATTENDED (11/23/2018)Plain chest X-ray (procedure) (06/05/2018)12 lead ECG (regime/therapy) (06/05/2018)US scan of gallbladder (procedure) (06/01/2018)Ultrasonography of bilateral kidneys (06/01/2018)Plain chest X-ray (procedure) (05/31/2018)Computed tomography of cervical spine without contrast (procedure) (05/31/2018)12 lead ECG (regime/therapy) (05/31/2018)NM hepatobiliary (05/29/2018)Hepatobiliary ultrasound (05/29/2018)Computerized axial tomography of thorax with contrast (procedure) (05/28/2018)CT of abdomen and pelvis without contrast (05/15/2018)CT of abdomen and pelvis (05/15/2018)Ultrasonography of abdomen (procedure) (05/04/2018)USEXAM ABDOM COMPLETE (05/04/2018)Duplex scan of lower limb arteries (procedure) (03/09/2018)Cardiac catheter (03/03/2018)Fungal Smear (02/18/2018)Fungal Culture (02/18/2018)Mycology culture (procedure) (02/18/2018)Endoscopy of upper gastrointestinal tract and banding of esophageal varices (02/18/2018)Spirometry (12/23/2017)Plain chest X-ray (procedure) (12/15/2017)US scan of gallbladder (procedure) (12/03/2017)Plain chest X-ray (procedure) (12/03/2017)12 lead ECG (regime/therapy) (12/03/2017)Plain chest X-ray (procedure) (11/26/2017)Doppler ultrasonography of veins of bilateral lower extremities (11/26/2017)Computed tomography of abdomen and pelvis with contrast (procedure) (11/26/2017)Computed tomography angiography of pulmonary artery (procedure) (11/26/2017)Full sleep study (10/27/2017)Doppler peripheral vascular flow study (07/11/2017)Colonoscopy (02/28/2017)Upper GI endoscopy (02/28/2017)Shoulder X-ray (04/27/2014)leftleg veinsTonsillectomythroat operationfoot surgeryright knee surgeryright arm surgery Medications albuterol(Albuterol (Eqv-ProAir HFA) 90 mcg/inh inhalation aerosol), See Instructions atorvastatin(atorvastatin 20 mg oral tablet), See Instructions budesonide-formoterol(Symbicort 160 mcg-4.5 mcg/inh inhalation aerosol), See Instructions diabetes supplies(Dexcom G7 Sensor), See Instructions, 5 refills diabetes supplies(Dexcom G7 Binding Machine Operator), See Instructions, 5 refills dilTIAZem(Cartia XT 120 mg/24 hours oral capsule, extended release), 120 mg= 1 cap, PO, Daily furosemide(furosemide 20 mg oral tablet), 20 mg= 1 tab, PO, Daily lidocaine topical(lidocaine 4% topical film), See Instructions losartan(losartan 50 mg oral tablet), 50 mg= 1 tab, PO, Daily methylPREDNISolone(DEPO-Medrol 40 mg/mL injectable suspension), 20 mg= 0.5 mL, intra-articular, ONCE metoprolol(Metoprolol Succinate ER 25 mg oral tablet, extended release), 25 mg= 1 tab, PO, Daily montelukast(montelukast 10 mg oral tablet), 10 mg= 1 tab, PO, qPM pantoprazole(Protonix 20 mg oral delayed release tablet), 20 mg= 1 tab, PO, Daily, 2 refills potassium chloride(Potassium Chloride (Eqv-K-Tab) 20 mEq oral tablet, extended release), See Instructions, 5 refills pyridoxine(Vitamin B6 50 mg oral tablet), 50 mg= 1 tab, PO, Daily rOPINIRole(Requip 0.5 mg oral tablet), 0.5 mg= 1 tab, PO, qhs semaglutide(Ozempic (0.25 mg or 0.5 mg dose) 2 mg/3 mL subQ pen), 0.5 mg, subQ, q7days sodium hyaluronate(Euflexxa 10 mg/mL intra-articular solution), 20 mg, intra- articular, q7days spironolactone(spironolactone 25 mg oral tablet), 25 mg= 1 tab, PO, Daily testosterone(Testosterone Cypionate 100 mg/mL intramuscular solution), 100 mg, IM, [id number] torsemide(torsemide 20 mg oral tablet) traMADol(Ultram 50 mg oral tablet), See Instructions Allergies Maxzidehypokalemia, hyperamylasemia fentaNYLrash Social History Smoking Status Never smoked cigarettes Alcohol - Denies Alcohol Use Substance Abuse - Denies Substance Abuse Tobacco - Denies Tobacco Use Family History Family history is unknown Immunizations Vaccine Date Status influenza virus vaccine, inactivated 12/24/2022 Recorded hepatitis B pediatric vaccine 09/24/2021 Recorded hepatitis A pediatric vaccine 09/24/2021 Recorded SARS-CoV-2 (COVID-19) mRNA BNT-162b2 vax 08/07/2021 Recorded SARS-CoV-2 (COVID-19) mRNA BNT-162b2 vax 12/12/2020 Recorded influenza virus vaccine, inactivated 12/01/2020 Given SARS-CoV-2 (COVID-19) mRNA BNT-162b2 vax 05/12/2020 Recorded Comments : 2020-12-13: Historical information-source unspecified SARS-CoV-2 (COVID-19) mRNA BNT-162b2 vax 04/21/2020 Recorded Comments : 2020-12-13: Historical information-source unspecified pneumococcal 13-valent vaccine 08/25/2019 Recorded Comments : 2019-12-24: Historical information-source unspecified hepatitis B adult vaccine 02/09/2018 Recorded tetanus/diphtheria/pertuss, acel (Tdap) 03/06/2015 Given influenza virus vaccine, inactivated 12/06/2014 Given influenza virus vaccine, inactivated 12/28/2013 Given influenza virus vaccine, inactivated 12/07/2012 Given influenza virus vaccine, inactivated 12/17/2011 Given Recommendations Health Maintenance Pending(in the next year) OverDue Diabetic Eye Exam due03/29/21Unknown Frequency Due Pneumococcal Vaccine Adults and Adolescents with Chronic Illness due01/21/23One-time only Shingles Vaccine due01/21/23One-time only Due In Future Diabetes Management A1c not due until04/03/23and every 366day Adult Influenza Vaccine not due until09/15/23and every 1year Body Mass Index not due until01/17/24and every 1year Satisfied(in the past 1 year) Satisfied Adult Influenza Vaccine on12/24/22.Satisfied by RA Barragan Bobbi Body Mass Index on01/17/23.Satisfied by RA Pedraza Natasha Diabetes Management A1c on04/02/22.Satisfied by NIKUNJ Mauricio Lynnae Electronic Signature on File CC: Philomena Jones DPM [address] [place] [address] Electronically Reviewed/Signed by: Estephanie Zimmerman DO Author Signature Dt/Tm:01/21/2023 08:59 AM Division of Sports Medicine MM Patient Care team information Care Team Personnel Name: MD Mookie, Yeison James Position: Physician - Family Med Member Role: Lifetime Relationship Address: Address: [address] [place] [address] [place] Name: MD Gorge, Roslyn Position: Physician - Family Med Member Role: Primary Care Provider Address: Address: [address] [place] [address] [place] Name: GAURAV Jones, Philomena Rizo Position: Physician - Podiatry Member Role: Lifetime Relationship Address: Address: [address] [place] [address] Care Team Related Persons Name: RAE DUQUE
--- OUTSIDE RECORDS SUMMARY | 2023-02-11 04:59 | External Medical Summary | Continuity of Care Document ---
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 Name Role Phone Roslyn Pennington Primary Care Physician [phone] [phone] Date(s): 01/27/23 - 01/27/23 [facility] [address] [place] [address] [address] [phone] Encounter Diagnosis Preop testing(Discharge Diagnosis) - 01/27/23 T2DM (type 2 diabetes mellitus)(Discharge Diagnosis) - 01/27/23 Sleep apnea(Discharge Diagnosis) - 01/27/23 Raynaud disease(Discharge Diagnosis) - 01/27/23 OBESITY, UNSPECIFIED(Discharge Diagnosis) - 01/27/23 Non-alcoholic fatty liver(Discharge Diagnosis) - 01/27/23 Hyperlipidemia(Discharge Diagnosis) - 01/27/23 HTN (hypertension)(Discharge Diagnosis) - 01/27/23 GERD(Discharge Diagnosis) - 01/27/23 Chronic obstructive lung disease(Discharge Diagnosis) - 01/27/23 Discharge Disposition: Home or Self Care Attending Physician: MD Pennington Dongsheng Referring Physician: MD Terry, Eliseo Jenkins Allergies, Adverse Reactions, Alerts Substance Reaction Severity Status Maxzide hypokalemia, hyperamylasemia Active fentaNYL rash Active Assessment and Plan Extracted from: Title:Office Visit Note Author:MD Pennington Dongsh eng Date:01/27/23 1.Preop testing Patient's METS score is at least 4. This is a class I (0 point) on reviewed cardiac risk index so there is about0.4-0.5% risk of cardiac complications (cardiac , nonfatal cardiac arrest, [place], pulmonary edema, ventricular fibrillation, primary cardiac arrest, and complete heart block).For an intermediate procedure, patient is at acceptable risk.labs ordered. 2.T2DM (type 2 diabetes mellitus) STATUS: chronic, reasonable control DATA: Labs reviewed GOAL: A1c<7 PLAN: Diet and exercise and wt loss.Metformin - Loose stool.Urinary freq - stopped Jardiance. No FHx of thyroid CA.Ozempic injectable shortage - will switch to oral as ordered. f/u DM edu.On Dexom - to protect his fingers. Reviewed use of medication and common side effects. Advised patient to read the drug insert and discuss with pharmacist further on potential side effects. Patient will call back with any possible side effects. Patient expressed understanding and agrees with plan. labs ordered 3.Sleep apnea STATUS: Chronic stable DATA: Reviewed labs GOAL: Maintain stability PLAN: continue cpap. WT loss 4.Raynaud disease STATUS: Chronic stable DATA: Reviewed labs GOAL:reduce Sx PLAN: saw rheum. labs ordered. Protect fingers and toes. 5.OBESITY, UNSPECIFIED Ozempic shorage 6.Non-alcoholic fatty liver STATUS: chronic. stable DATA: reviewed labs GOAL: Resolution PLAN:Hep A/B shots in progress - advised to l double check. f/u GI. WT loss. on statin. nondrinker and no NSAIDs . Had EGD and HIDA. 7.Hyperlipidemia STATUS: Chronic, LDL at goal DATA: Reviewed labs GOAL: prevent ASCVD PLAN:continue statin. labs ordered 8.HTN (hypertension) STATUS: Chronic, at goal DATA: Labs reviewed GOAL: BP<140/90 PLAN: DASH and exercise. continue current Tx 9.GERD STATUS: Chronic, stable DATA: Reviewed labs GOAL: Resolution PLAN:change protonix to 40mg as ordered. Diet modification . f/u GI 10.Chronic obstructive lung disease chronic. stable. contineu Symbicort call prn. f/u 3 mos Time spent: Pre-visit planning/chart review:8 minutes [id number] visit: 35minutes Post-visit documentation: minutes Care coordination: minutes Total visit time: 43minutes Immunizations Given and Recorded Vaccine Date Status [...] 4 TIMES DAILY NEEDED FOR WHEEZING, Pharmacy: [facility] Start Date: 05/30/22 Status: Ordered atorvastatin 20 mg oral tablet Start: 07/09/22 12:02:00 EDT, See Instructions, Disp# 30 tab, Refills: 11, TAKE 1 TABLET BY MOUTH ONCE DAILY AT BEDTIME, Pharmacy: [facility] 16[facility] Start Date: 07/09/22 Status: Ordered Cartia XT 120 mg/24 hours oral capsule, extended release Start: 09/18/18 9:12:00 EDT, 1 cap, PO, Daily Start Date: 09/18/18 Status: Ordered Dexcom G7 Purchase Analyst Start: 09/30/22 15:05:00 EDT, See Instructions, Disp# 1 kit, Refills: 5, home glucose monitoring Dx: E11.9, Pharmacy: [facility] 1640 Start Date: 09/30/22 Status: Ordered Dexcom G7 Sensor Start: 09/30/22 15:05:00 EDT, See Instructions, Disp# 3 kit, Refills: 5, home glucose monitoring Dx: E11.9, Pharmacy: [facility] Start Date: 09/30/22 Status: Ordered Euflexxa 10 mg/mL intra-articular solution Start: 09/04/22 10:02:00 EDT, 20 mg =, intra-articular, q7days, Disp# 6 mL, Refills: 0, 3 syringes for R knee. Please ship to physician's office: [address] [place] [id number], Note to Pharmacy: R KNEE CRISTHIAN M17.0, Pharmacy: [facility]... Start Date: 09/04/22 Stop Date: 09/25/22 Status: Ordered furosemide 20 mg oral tablet Start: 06/27/20 10:00:00 EDT, 1 tab, PO, Daily, prn for leg swelling Start Date: 06/27/20 Status: Ordered lidocaine 4% topical film Start: 10/05/19 15:39:00 EDT, See Instructions, Disp# 14 patch, do not leave patch on for more than8 hours at a time, Pharmacy: [id number], 187, cm, 09/07/19 10:00:00 EDT, [...] PO, qPM Start Date: 08/03/19 Status: Ordered Potassium Chloride (Eqv-K-Tab) 20 mEq oral tablet, extended release Start: 09/30/22 15:04:00 EDT, See Instructions, Disp# 30 tab, Refills: 5, Take 1 tablet by mouth once daily, Pharmacy: [facility] Start Date: 09/30/22 Status: Ordered Protonix 40 mg oral delayed release tablet Start: 01/27/23 13:35:00 EST, 1 tab, PO, Daily, Disp# 30 tab, Refills: 3, Pharmacy: [facility] 16[facility] Start Date: 01/27/23 Stop Date: 05/27/23 Status: Ordered Requip 0.5 mg oral tablet Start: 02/01/20 10:05:00 EST, 1 tab, PO, qhs, Disp# 30 tab, Pharmacy: [facility] 16[facility] Start Date: 02/01/20 Stop Date: 03/02/20 Status: Ordered Rybelsus 3 mg oral tablet Start: 01/27/23 13:16:00 EST, 1 tab, PO, Daily, Disp# 30 tab, Refills: 3, take 30-60 min prior to first meal of the day, Pharmacy: [facility] 1639 Start Date: 01/27/23 Stop Date: 05/27/23 Status: Ordered spironolactone 25 mg oral tablet Start: 03/29/22 8:49:00 EST, 1 tab, PO, Daily Start Date: 03/29/22 Status: Ordered Symbicort 160 mcg-4.5 mcg/inh inhalation aerosol Start: 01/27/23 13:37:00 EST, See Instructions, Disp# 11 g, Refills: 2, INHALE 2 PUFFS BY MOUTH TWICE DAILY RINSE MOUTH AND THROAT AFTER USE, Brand Medically Necessary, Pharmacy: [facility] 16[facility] Start Date: 01/27/23 Status: Ordered Testosterone Cypionate 100 mg/mL intramuscular solution Start: 11/08/22 14:33:00 EDT, 100 mg =, IM, [id number], per endocrinology Start Date: 11/08/22 Status: Ordered torsemide 20 mg oral tablet Start: 05/21/22 9:51:00 EST Start Date: 05/21/22 Status: Ordered Ultram 50 mg oral tablet Start: 11/19/22 12:53:00 EDT, See Instructions, Disp# 20 tab, Refills: 0, 1-2 tab PO q6h as needed for pain, Pharmacy: [facility] [id number] Start Date: 11/19/22 Status: Ordered Vitamin B6 50 mg oral tablet Start: 12/31/19 10:51:00 EDT, 1 tab, PO, Daily, Disp# 30 tab, other Start Date: 12/31/19 Status: Ordered Mental Status 01/27/23 Barriers to Learning one year None evide nt Mandatory Health Literacy Documentation Yes Health Literacy Communication Barriers N ever Primary Language Croatian Problem List Condition Confirmation Course Effective Dates [...] neuropathy Confirmed Active Neck pain Confirmed Active Nocturia [...] Effective Dates Health Status Clinical Service Informant T2DM (type 2 diabetes mellitus) Discharge Diagnosis 01/27/23 Raynaud disease Discharge Diagnosis 01/27/23 OBESITY, UNSPECIFIED Discharge Diagnosis 01/27/23 Non-alcoholic fatty liver Discharge Diagnosis 01/27/23 Chronic obstructive lung disease Discharge Diagnosis 01/27/23 Preop testing Discharge Diagnosis 01/27/23 Sleep apnea Discharge Diagnosis 01/27/23 HTN (hypertension) Discharge Diagnosis 01/27/23 Hyperlipidemia Discharge Diagnosis 01/27/23 GERD Discharge Diagnosis 01/27/23 Procedures Procedure Date Related Diagnosis Body Site [...] left hand and wrist. No fracture 8[facility] Impression: 1. No acute processes of the chest 2. No acute rib fracture or pneumothorax identified 9[facility] Impression: 1. Degenerative changes without acute [...] fatigue or decrease effort. Advise clinical correlation. Bag Mender reported the effort was fair and multiple attempts were made with the patient to complete spirometry. 28The findings are consistent with a normal apnea hypopnea index. 29left lower extremity. Normal study. No abnormality found in the contralateral common femoral vein. 30path tubular adenoma all 3 sites 31pathology - stomach-mild predominately chronic antritis is seen 32no tumor is seen. colon-tubular adenoma. [id number] consistent with tubular adenoma. High grade glandulare [...] from the superior margin of the acromion Vital Signs Most recent to oldest [Reference Range]: 1 Height 188.4 cm (01/27/23 1:04 PM) Patient Weight 109.4 kg (01/27/23 1:04 PM) Body Mass Index 30.82 kg/m2 (01/27/23 1:04 PM) Temperature [36.5-37.9 DegC] 37.0 DegC (01/27/23 1:04 PM) Heart Rate 87 bpm (01/27/23 1:04 PM) Respiratory Rate 18 br/min (01/27/23 1:04 PM) Blood Pressure 124/86mmHg (01/27/23 1:04 PM) Cuff Pulse Pressure 38 mmHg (01/27/23 1:04 PM) Social History Social History Type Response Smoking Status Never smoked cigaret aldo Sex Male FCM Outpt Note * MD Gorge, Roslyn: PERFORM Event Display: FCM Outpt Note Authored Date: [id number] Chief Complaint F/U on blood work History of Present Illness Pre-op: Surgery:R TKA Surgeon: PSSM Date: 02/11 Anesthesia:general Fax: Last surgery:appendix 2 yrs Complications with anesthesia:none High-risk surgery (intraperitoneal, intrathoracic, or vascular):No H/o heart disease/KY/CHF: x h/o CVA/TIA: x h/o DM on insulin: x h/o kidney disease with Cr >2: x Activity: can climb a hill or at least 2 flights of stairs without chest pain or unusual SOB or difficulty Snore:on CPAP URI illness in the past month:none Alcohol use: rare Tobacco use: no Drug use: no DM: ozempic shortage so he stopped it a month ago HTN: on meds. home BP - not checking. no dizzy HLD: on statin. no muscle pain. GERD: on med but has to take BID. Review of Systems No fever/chills. No headache. No respiratory symptoms. No chest pain/shortness of breath. No nausea/vomiting. No abdominal pain. No change with bowels. No new urinary symptoms. No rash. No bleeding.No anxiety/depression. Other systems reviewed and are neg. Physical Exam Vitals & Measurements T:37.0C HR:87(Monitored) RR:18 BP:124/86 SpO2:97% HT:188.4cm WT:109.400kg(Dosing) WT:109.4kg BMI:30.82 PHQ2 Data(Data Documented on:01/27/2023 13:03) Emotional health assessment NEGATIVE General: No acute distress. Nontoxic. Head:Normocephalic, Atraumatic. Eyes:Pupils are equal, round Normal conjunctiva. Throat:No pharyngeal erythema, no abnormal masses or lesions. Neck:Supple, No jugular venous distention Respiratory:Lungs are clear to auscultation, Respirations non-labored, Breath sounds equal OTIS. Cardiovascular:Normal rate, Regular rhythm, No murmur, Rubs, gallops. Gastrointestinal:Soft, Non-tender, Non-distended, Normal bowel sounds. Musculoskeletal:no pitting edema Integumentary:No rashes Neurologic:Alert, Oriented, No focal deficits. Psychiatric:Cooperative, Appropriate mood & affect. Assessment/Plan 1.Preop testing Patient's METS score is at least 4. This is a class I (0 point) on reviewed cardiac risk index so there is about0.4-0.5% risk of cardiac complications (cardiac , nonfatal cardiac arrest, [place], pulmonary edema, ventricular fibrillation, primary cardiac arrest, and complete heart block).For an intermediate procedure, patient is at acceptable risk.labs ordered. 2.T2DM (type 2 diabetes mellitus) STATUS: chronic, reasonable control DATA: Labs reviewed GOAL: A1c<7 PLAN: Diet and exercise and wt loss.Metformin - Loose stool.Urinary freq - stopped Jardiance.No FHx of thyroid CA.Ozempic injectable shortage - will switch to oral as ordered. f/u DM edu.On Dexom - to protect his fingers. Reviewed use of medication and common side effects. Advised patient to read the drug insert and discuss with pharmacist further on potential side effects. Patientwill call back with any possible side effects. Patient expressed understanding and agrees with plan.labs ordered 3.Sleep apnea STATUS: Chronic stable DATA: Reviewed labs GOAL: Maintain stability PLAN: continue cpap. WT loss 4.Raynaud disease STATUS: Chronic stable DATA: Reviewed labs GOAL:reduce Sx PLAN: saw rheum. labs ordered. Protect fingers and toes. 5.OBESITY, UNSPECIFIED Ozempic shorage 6.Non-alcoholic fatty liver STATUS: chronic. stable DATA: reviewed labs GOAL: Resolution PLAN:Hep A/B shots in progress - advised to l double check. f/u GI. WT loss. on statin. nondrinker and no NSAIDs . Had EGD and HIDA. 7.Hyperlipidemia STATUS: Chronic, LDL at goal DATA: Reviewed labs GOAL: prevent ASCVD PLAN:continue statin. labs ordered 8.HTN (hypertension) STATUS: Chronic, at goal DATA: Labs reviewed GOAL: BP<140/90 PLAN: DASH and exercise. continue current Tx 9.GERD STATUS: Chronic, stable DATA: Reviewed labs GOAL: Resolution PLAN:change protonix to 40mg as ordered. Diet modification. f/u GI 10.Chronic obstructive lung disease chronic. stable. contineu Symbicort call prn. f/u 3 mos Time spent: Pre-visit planning/chart review:8 minutes [id number] visit: 35minutes Post-visit documentation: minutes Care coordination: minutes Total visit time: 43minutes Problem List/Past Medical History Ongoing Abdominal pain [...] murmur Heart murmur Hemochromatosis carrier Hiatal hernia HTN (hypertension) Hyperlipidemia Inguinal hernia Knee pain Lateral epicondylitis, left elbow Left carpal tunnel syndrome Left foot pain Left hand pain Left hand paresthesia Leg cramps Leg edema Leukocytosis LLQ pain Low libido Mass of right thigh MVP (mitral valve prolapse) Neck pain Nocturia Non-alcoholic fatty liver OBESITY, [...] budesonide-formoterol(Symbicort 160 mcg-4.5 mcg/inh inhalation aerosol), See Instructions, 2 refills diabetes supplies(Dexcom G7 Sensor), See Instructions, 5 refills diabetes supplies(Dexcom G7 Purchase Analyst), See Instructions, 5 refills dilTIAZem(Cartia XT 120 mg/24 hours oral capsule, extended release), 120 mg= 1 cap, PO, Daily furosemide(furosemide 20 mg oral tablet), 20 mg= 1 tab, PO, Daily lidocaine topical(lidocaine 4% topical film), See Instructions losartan(losartan 50 mg oral tablet), 50 mg= 1 tab, PO, Daily metoprolol(Metoprolol Succinate ER 25 mg oral tablet, extended release), 25 mg= 1 tab, PO, Daily montelukast(montelukast 10 mg oral tablet), 10 mg= 1 tab, PO, qPM pantoprazole(Protonix 40 mg oral delayed release tablet), 40 mg= 1 tab, PO, Daily, 3 refills potassium chloride(Potassium Chloride (Eqv-K-Tab) 20 mEq oral tablet, extended release), See Instructions, 5 refills pyridoxine(Vitamin B6 50 mg oral tablet), 50 mg= 1 tab, PO, Daily rOPINIRole(Requip 0.5 mg oral tablet), 0.5 mg= 1 tab, PO, qhs semaglutide(Rybelsus 3 mg oral tablet), 3 mg= 1 tab, PO, Daily, 3 refills sodium hyaluronate(Euflexxa 10 mg/mL intra-articular solution), 20 mg, intra- articular, q7days spironolactone(spironolactone 25 mg oral tablet), 25 mg= 1 tab, PO, Daily testosterone(Testosterone Cypionate 100 mg/mL intramuscular solution), 100 mg, IM, [id number] torsemide(torsemide 20 mg oral tablet) traMADol(Ultram 50 [...] Vaccine Adults and Adolescents with Chronic Illness due01/27/23One-time only Shingles Vaccine due01/27/23One-time only Due In Future Diabetes Management A1c not due until04/03/23and every day Adult Influenza Vaccine not due until09/15/23and every 1year Body Mass Index not due until01/27/24and every 1year Satisfied(in the past 1 year) Satisfied Adult Influenza Vaccine on12/24/22.Satisfied by RA Barragan Bobbi Body Mass Index on01/27/23.Satisfied by RA Livingston Stacey Diabetes Management A1c on04/02/22.Satisfied by NIKUNJ Mauricio Lynnae Electronic Signature on File Electronically Reviewed/Signed by: Roslyn Pennington MD Author Signature Dt/Tm:01/27/2023 01:42 PM Department of Family Medicine DJ Patient Care team information Care Team Personnel Name: MD Mookie, Yeison James Position: Physician - Family Med Member Role: Lifetime Relationship Address: Address: [address] [place] [address] [place] Name: MD Gorge, Roslyn Position: Physician - Family Med Member Role: Primary Care Provider Address: Address: [address] [place] [address] [place] Name: GAURAV Jones, Philomena Rizo Position: Physician - Podiatry Member Role: Lifetime Relationship Address: Address: [address] [place] [address] Care Team Related Persons Name: RAE DUQUE
[2023-02-11] MEDS ORDERED: oxyCODONE HCL 10 MG TABCR (OxyCONTIN) PO SCH (06:00)
[2023-02-11] MEDS ORDERED: FAMOTIDINE 20 MG TAB PO SCH (06:00)
[2023-02-11] MEDS ORDERED: ROPIVACAINE 0.5% HCL/PF 150 MG, BUPIVACAINE 0.75% MPF 20 ML, EPINEPHrine 0.15 MG, Ketor... INFIL SCH (06:00)
[2023-02-11] MEDS ORDERED: traMADol HCL 50 MG TABLET PO SCH (06:00)
[2023-02-11] MEDS ORDERED: LR 500ML BOLUS, THEN 15ML/HR IV SCH (06:00)
[2023-02-11] MEDS ORDERED: METOCLOPRAMIDE HCL 10 MG TABLET PO SCH (06:00)
[2023-02-11] MEDS ORDERED: TRANEXAMIC ACID 1,000 MG **IV Pre-op IV SCH (06:00)
[2023-02-11] MEDS ORDERED: LR 60ML/HR IV SCH (06:00)
[2023-02-11] MEDS ORDERED: CeleBREX 200 MG CAP PO SCH (06:00)
[2023-02-11] MEDS ORDERED: ceFAZolin 2000MG 2,000 MG/15 ML SYR IV SCH (06:00)
[2023-02-11] MEDS ORDERED: GABAPENTIN 600 MG DOSE PO SCH (06:00)
[2023-02-11] MEDS ORDERED: ACETAMINOPHEN 500 MG TAB PO SCH (06:00)
[2023-02-11] MEDS ORDERED: ROPIVACAINE 0.5% 5 MG/ML 30 ML VIAL ONE (06:28)
[2023-02-11] MEDS ORDERED: BUPIVACAINE 0.5 % 5 MG/1 ML PF 10ML VIAL ONE (06:28)
[2023-02-11] MEDS ORDERED: ATROPINE SULFATE 0.1 MG/ML 10ML SYR IV PRN (06:34)
[2023-02-11] MEDS ORDERED: ePHEDrine sulfate 50 MG/ML AMP IV PRN (06:34)
[2023-02-11] MEDS ORDERED: ONDANSETRON INJ 2 MG/ML 2 ML VIAL IV PRN ×2 (06:34→12:12)
[2023-02-11] MEDS ORDERED: fentaNYL citrate PF 100 MCG/2 ML VIAL IV PRN (06:34)
[2023-02-11] MEDS ORDERED: ONDANSETRON INJ 2 MG/ML 2 ML VIAL ONE (06:38)
[2023-02-11] MEDS ORDERED: PROPOFOL IV EMULSION 10 MG/ML 20 ML VIAL IV ONE (06:38)
[2023-02-11] MEDS ORDERED: MIDAZOLAM HCL 1 MG/ML 2ML VIAL ONE (06:39)
[2023-02-11] MEDS ORDERED: fentaNYL citrate PF 100 MCG/2 ML VIAL ONE ×2 (06:39→07:26)
--- NOTE | 2023-02-11 06:41 | History & Physical Bridge Note ---
Date of Service February 11, 2023 History & Physical Bridge Note I have examined the patient, reviewed the History & Physical and in the interval since the performance of the History & Physical I have noted the following changes of clinical significance: no changes noted
[2023-02-11] MEDS ORDERED: ORTHO JOINT ANESTHETIC ONE (06:43)
[2023-02-11] MEDS ORDERED: VANCOMYCIN HCL 1000MG/20ML VIAL ONE ×2 (06:43→07:08)
[2023-02-11] MEDS ORDERED: DEXAMETHASONE SOD INJ 4 MG/ML VIAL ONE (07:35)
[2023-02-11] MEDS ORDERED: PHENYLEPHRINE HCL 10 MG/ML VIAL ONE (08:39)
--- NOTE | 2023-02-11 10:41 | Operative Report ---
Post Operative Report Pre & Post Diagnosis Operation Date: 02/11/23 07:00 Pre-Op Diagnosis: Right Knee Osteoarthritis Post-Op Diagnosis: Right Knee Osteoarthritis I identified the patient and participated in the time-out.: Yes Procedure Operation Date: 02/11/23 07:00 Actual Procedures p Right Total Knee Arthroplasty(Right) - Eliseo Dior MD Surgeon Eliseo Dior MD Associate Partner LUIS lucia. no resident or fellow available Estimated Blood Loss 5 Findings Consistent with Post-Op Diagnosis Specimens Resected bone and soft tissue right knee Anesthesia Type MAC Spinal Regional Complications none Disposition Accompanied Patient To Recovery: No Disposition: Recovery Room Indications Caleb is 62. He has severe right knee patellofemoral arthritis with a chronically malaligned extensor mechanism. He has failed nonsurgical treatment and has wished to proceed with surgical intervention. Total knee replacement. Description of Procedure Informed consent. Patient identified. He identified the operative site as the right knee. I marked with my initials. He preoperative surgical timeout was performed. A preop dose of IV antibiotics was given. He was taken to the operating room positioned supine on the OR table. A padded post was placed under the right calf. A tourniquet on the right thigh. A bump under the right hip. The leg was prescrubbed and then prepped and draped in the usual sterile fashion DVT prophylaxis with foot pumps intraoperatively. Early mobility mechanical devices and Eliquis postoperatively. The exam under anesthesia demonstrated range of motion 0/7/approximately 105 to 110 degrees of flexion. The patella was situated and tracked laterally in a fixed position. Preop dose of TXA. Bony prominences were inspected and padded. Limb exsanguinated with the Esmarch. Tourniquet plated to 275 mmHg. A midline longitudinal incision was made. He had previous 3 to 4 cm medial and lateral arthrotomies. Due to the small size I felt that a midline incision would be appropriate. The skin was incised. I carefully identified the extensor mechanism due to its lateral positioning. I then split the quadriceps tendon directly in line with its fibers in its midportion and performed a medial parapatellar arthrotomy. Soft tissue on the anterior aspect of the distal femur was excised. A minimal medial release was performed. The retropatellar fat pad was resected. The femur was oddly shaped. The lateral femoral condyle had a rounded appearance to its lateral margin rather than a square appearance. There were large osteophytes lateral and proximal which were removed. This was due to chronic lateral tracking. The patella was shelled out in configuration. It was thicker on its periphery and thinner at its central portion. I defined its margins and removed large osteophytes with a rongeur. I then defined the patellar and quadriceps tendons. I measured the thickness at the elevated margins at 21 mm. The central portion was probably closer to 15 or 16 mm. He probably had had a previous lateral release. I did debride scar tissue in the lateral gutter. The knee was able to be flexed but the patella could not be everted and was tucked into the lateral gutter. Retractors were inserted. Notch osteophytes were removed and the ACL which looked small and perhaps a chronically partially deficient was debrided along with the PCL. The tibia was then subluxated. The tibiofemoral compartment looked relatively normal except for absence of a portion of the body of the medial meniscus. The remnants of the cruciate ligaments and menisci were then removed and the margins of the tibial plateau were defined. I drilled a fixed wing pilot hole into the tibia just in front of and between the tibial spines and inserted intramedullary alignment moriah. The 0 degree cutting block was applied aligned with the tibial tubercle and set to resect 10 mm off of the lateral side corresponding to about a 6 mm medial cut. This was pinned in the place. The extra medullary alignment moriah was then utilized to confirm 0 degree slope to slight posterior slope. The moriah bisected the ankle joint and intersected the second ray. This cut was then carefully made and sized to a #4. Attention was then turned to the femur. I drilled a fixed wing pilot hole just above the PCL in line with the shaft of the femur and inserted the intramedullary alignment moriah. 5 degree right knee valgus cut at 14 mm thickness. This was based upon the preoperative flexion contracture. The cut was distal to the collateral ligaments. This cut was made. The epicondylar axis was marked out. The distal femoral sizing guide was applied and sized to a 5. The appropriate external rotation drill holes were made which matched the epicondylar axis. The flexion gap was rectangular. Prior to this the extension gap was assessed at a symmetric 10 mm. The size 5 anterior down cutting block was applied pinned in place and the cuts were made anterior posterior and chamfer cuts protecting the collateral ligaments. The box cutting guide was applied and lateralized over to the lateral femoral cortical margin pinned into place and this cut was then made. The femoral trial was applied and fit well. Attention was turned to the tibia. The trial was lateralized. Aligned to the tibial tubercle pinned into place and the keel was prepared with the drill and punch. Trialing was then performed and there was full extension with the 10 mm spacer. There was trace to 1+ MCL and LCL laxity in mid position and no laxity at 90 degrees of flexion. Prior to this the flexion gap was assessed at a symmetric 10 with a spacer block. I then turned my attention to the patella. I had a difficult time getting the cutting guide on. Initially I had selected a residual patellar thickness of 13. The guide would not fit at this level due to the thickness of the peripheral margin of the patella. More marginal osteophytes were removed. The patellar and quadriceps tendon insertions were identified and protected. I then increased the residual thickness to approximately 15 and was able to get the clamp on secured and oriented properly. I then made carefully made the cut ensuring that I was preserving the extensor mechanism and tendons. There was an inferior lateral shallow crater about a centimeter in diameter and a millimeter or too thick where there remained eburnated bone loss. This was underneath the implant and was suitable for filling with cement. The patella was large and probably could accommodate up to a 41 mm patella however I selected the 38 so as to not overstuff. The residual patellar thickness after the cut was made was 15 mm. The composite patellar thickness with the implant in place was 25 mm. The patella actually tracked well. Once the knee was flexed beyond about 30 degrees tracked well within the trochlea. Care was taken to set femoral rotation appropriately when applying the implant. The eburnated area on the patella was abraded with a curette. The locals were drilled with the paddle guide. The components were removed. The canals were plugged and the bony surfaces were meticulously prepared with pulsatile lavage and then dried. Ortho joint mix injected into the back of the knee. 4 g of powdered vancomycin 4 g of powdered vancomycin was mixed with 2 bags of Simplex P cement. Mixed for a minute 15 seconds. After applying smears to the posterior condyles the components were cemented and placed femur tibia and patella. The knee was held in full extension with a trial spacer until the cemented hardened and the tourniquet was let down after 123 minutes of inflation. Meticulous hemostasis was then performed. The knee was fully straight and had no laxity at 0 or 98. There was trace to 1+ MCL and LCL laxity in mid position. There is no knee hyperextension. I do not think we could accommodate a larger polyethylene spacer. The back the knee was inspected for cement removed as encountered bleeding was controlled as encountered as well. The remainder the Ortho joint mix was injected while the cement was hardening. The final polyethylene spacer was applied. I did release some of the scar tissue in the lateral gutter just to ensure that there was no residual tightness there. This probably constituted a lateral release in the traditional sense but difficult to tell due to the scarring from previous surgery as well as the arthritis. Nonetheless the patellar tracking was excellent. I placed the knee into 20 to 30 degrees of flexion so that the patella was engaged within the trochlea. It sat there fine. I then imbricated the medial retinaculum and vastus medialis oblique us moving it slightly distally but mostly medial to make up for medial retinacular laxity. I imbricated about a centimeter of tissue using the appropriate type suturing technique and a #2 FiberWire. This was carried down to the inferior border of the patella and up to the vertical portion of the quad tendon split. Proximal to this it was imbricated [id number] with #2 FiberWire. I then oversewed the imbrication with #1 Vicryl tapered needle in a running locked fashion. Throughout this process I continually checked patellar tracking to ensure that it was not overtightened or restrictive. The patella tracks centrally. There was just under a quadrant of lateral patellar mobility with the knee in full extension there is no tendency for subluxation. [employer] assisted flexion with extensor mechanism closed was again about 105 to 110 degrees. The extensor mechanism remained intact. I closed the arthrotomy below the equator the patella with interrupted #1 Vicryl. The skin was then closed in layers with 0 and 2-0 Vicryl followed by price on the skin. The leg was cleaned with wet and dry sponges and a soft sterile dressing was applied. I attest to the content of the Intraoperative Record and any orders documented therein. Any exceptions are noted below.
--- NOTE | 2023-02-11 10:51 | Operative Report ---
Post Operative Report Pre & Post Diagnosis Operation Date: 02/11/23 07:00 Pre-Op Diagnosis: Right Knee Osteoarthritis Post-Op Diagnosis: Right Knee Osteoarthritis I identified the patient and participated in the time-out.: Yes Procedure Operation Date: 02/11/23 07:00 Actual Procedures p Right Total Knee Arthroplasty(Right) - Eliseo Dior MD Surgeon Eliseo Dior MD Teacher [employer] Child[employer] LUIS lucia. no resident or fellow available Estimated Blood Loss 5 Findings Consistent with Post-Op Diagnosis right knee DJD Specimens bone and soft tissue Anesthesia Type MAC Spinal Regional Description of Procedure Patient was taken to the operating room and placed under spinal anesthesia with peripheral nerve block. He was given 2 g of IV Ancef for surgical prophylaxis. Time out was performed. Was given 1 g of TXA preoperatively. Patient was prepped and draped in routine sterile fashion. I was present during the entire case and assisted with positioning, tissue retraction, trialing of implants, implantation of hardware, closure and dressings. Please see Dr. Dior's operative report for further detail. Patient was awakened and transferred to the recovery room in stable condition. I attest to the content of the Intraoperative Record and any orders documented therein. Any exceptions are noted below.
[2023-02-11] MEDS ORDERED: NALOXONE HCL 0.4 MG/1 ML VIAL/CARP IV PRN (12:12)
[2023-02-11] MEDS ORDERED: HYDROmorphone INJ 0.5 MG/0.5 ML SYR IV PRN (12:12)
[2023-02-11] MEDS ORDERED: TAMSULOSIN HCL 0.4 MG CAP PO PRN (12:12)
[2023-02-11] MEDS ORDERED: hydrALAZINE HCL 20 MG/ML VIAL IV PRN (12:12)
[2023-02-11] MEDS ORDERED: METOCLOPRAMIDE HCL INJ 5 MG/ML 2 ML VIAL IV PRN (12:12)
[2023-02-11] MEDS ORDERED: ALBUTEROL HFA 8 GM INHALER INH PRN (12:12)
[2023-02-11] MEDS ORDERED: HYDROmorphone INJ 1 MG/ML SYRINGE IV PRN (12:12)
[2023-02-11] MEDS ORDERED: traMADol HCL 50 MG TABLET PO PRN (12:12)
[2023-02-11] MEDS ORDERED: bisacodyL 10 MG SUPP PR PRN (12:12)
[2023-02-11] MEDS ORDERED: MAGNESIUM HYDROXIDE SUSP 30 ML UDC PO PRN (12:12)
--- NOTE | 2023-02-11 12:41 | Anesthesiology Progress Note ---
Date of Service February 11, 2023 Anesthesia Post Procedure Vital Signs Vital Signs: Temp Pulse Pulse Resp BP Pulse Ox O2 Del Method 02/11/23 12:30 98.6 F 90 16 135/87 98 Nasal Cannula 02/11/23 12:25 98.6 F 92 H 20 139/85 99 Nasal Cannula 02/11/23 12:15 98.6 F 87 11 L 134/85 98 Nasal Cannula 02/11/23 12:05 98.6 F 91 H 16 127/89 99 Nasal Cannula 02/11/23 11:55 98.6 F 88 18 144/86 H 99 Nasal Cannula 02/11/23 11:45 98.6 F 85 10 L 141/84 H 98 Nasal Cannula 02/11/23 11:35 92 H 13 149/82 H 99 Nasal Cannula 02/11/23 11:25 82 15 154/87 H 99 Nasal Cannula 02/11/23 11:15 89 16 149/81 H 98 Nasal Cannula 02/11/23 11:05 88 14 144/97 H 99 Nasal Cannula 02/11/23 10:55 88 17 147/91 H 92 Nasal Cannula 02/11/23 10:47 99.5 F 90 11 L 151/92 H 95 Nasal Cannula 02/11/23 05:50 98.2 F 78 18 153/88 H 96 Room Air, CPAP 02/11/23 05:34 Room Air, CPAP O2 Flow Rate 02/11/23 12:30 2 02/11/23 12:25 3 02/11/23 12:15 3 02/11/23 12:05 3 02/11/23 11:55 3 02/11/23 11:45 3 02/11/23 11:35 3 02/11/23 11:25 3 02/11/23 11:15 3 02/11/23 11:05 3 02/11/23 10:55 3 02/11/23 10:47 3 02/11/23 05:50 02/11/23 05:34 Pain Intensity Bilateral Knee: Pain Intensity: 0 Transfer of Care Handoff Completed per policy Notes Mental Status: alert / awake / arousable and participated in evaluation Patient Amnestic to Procedure: Yes Nausea / Vomiting: adequately controlled Pain: adequately controlled Airway Patency, RR, SpO2: stable & adequate BP & HR: stable & adequate Hydration State: stable & adequate Neuraxial Anesthesia: was administered and sensory block is resolving Anesthetic Complications: no major complications apparent and Pt Satisfied with anesthetic care
[2023-02-11] MEDS: SODIUM CHLORIDE 0.9% 1,000 ML IV SCH ×2 (13:31→23:16)
[2023-02-11] MEDS: ACETAMINOPHEN 500 MG TAB PO SCH ×2 (13:32→21:30)
--- NOTE | 2023-02-11 14:55 | Orthopedic Progress Note ---
Date of Service February 11, 2023 Assessment & Plan (1) Knee joint replacement status: Plan: Doing well. Will check Doppler of posterior tib pulse. We discussed the results of surgery. Pain management discussed. Use of the brace is reviewed. Start blood thinner tonight. Routine postop antibiotics. Admission and Anticipated Discharge Date Admission Date: February 11, 2023 Subjective Doing well. No problems. Pain is well controlled. Physical Exam Physical Exam: PT pulses not palpable. DP pulse is trace to 1+. Capillary refill less than 2 seconds throughout the foot. He has 5 out of 5 ankle and toe plantarflexion and dorsiflexion strength. There are deformities of the toes. Sensation is intact dressing is clean and dry. Results & Data Vital Signs (Past 12 Hours) Vital Signs Temp Pulse Pulse Resp BP Pulse Ox O2 Del Method 02/11/23 14:04 97 H 18 131/76 96 Nasal Cannula 02/11/23 13:29 36.4 C L 100 H 18 149/84 H 95 Nasal Cannula 02/11/23 12:45 37.0 C 90 12 133/90 97 Nasal Cannula 02/11/23 12:30 37.0 C 90 16 135/87 98 Nasal Cannula 02/11/23 12:25 37.0 C 92 H 20 139/85 99 Nasal Cannula 02/11/23 12:15 37.0 C 87 11 L 134/85 98 Nasal Cannula 02/11/23 12:05 37.0 C 91 H 16 127/89 99 Nasal Cannula 02/11/23 11:55 37.0 C 88 18 144/86 H 99 Nasal Cannula 02/11/23 11:45 37.0 C 85 10 L 141/84 H 98 Nasal Cannula 02/11/23 11:35 92 H 13 149/82 H 99 Nasal Cannula 02/11/23 11:25 82 15 154/87 H 99 Nasal Cannula 02/11/23 11:15 89 16 149/81 H 98 Nasal Cannula 02/11/23 11:05 88 14 144/97 H 99 Nasal Cannula 02/11/23 10:55 88 17 147/91 H 92 Nasal Cannula 02/11/23 10:47 37.5 C 90 11 L 151/92 H 95 Nasal Cannula 02/11/23 05:50 36.8 C 78 18 153/88 H 96 Room Air, CPAP 02/11/23 05:34 Room Air, CPAP O2 Flow Rate 02/11/23 14:04 2 02/11/23 13:29 2 02/11/23 12:45 2 02/11/23 12:30 2 02/11/23 12:25 3 02/11/23 12:15 3 02/11/23 12:05 3 02/11/23 11:55 3 02/11/23 11:45 3 02/11/23 11:35 3 02/11/23 11:25 3 02/11/23 11:15 3 02/11/23 11:05 3 02/11/23 10:55 3 02/11/23 10:47 3 02/11/23 05:50 02/11/23 05:34 Diagnostic Findings Radiographs of the right knee AP and lateral done postoperatively showed good good positioning of the components. There is no fracture or dislocation. There is no complication evident. The patella is well centralized.
--- NOTE | 2023-02-11 15:30 | XRay Report ---
XR knee RT 1 or 2V routine CLINICAL HISTORY: Postoperative evaluation. COMPARISON: Leg length study January 17, 2023. FINDINGS: Alignment of the total right knee arthroplasty is anatomic. There is no periprosthetic fra cture or unexpected radiopaque foreign body. There are skin price. IMPRESSION: Expected findings following total right knee arthroplasty. ACT 112: Negative or not required by law. Electronically signed by: Chapito Street M.D. 02/11/2023 3:29 PM
[2023-02-11] MEDS ORDERED: TRANEXAMIC ACID / 0.7% NACL 1,000 MG/100 ML BAG IV SCH (17:00)
[2023-02-11] MEDS: ceFAZolin 2000MG 2,000 MG/15 ML SYR IV SCH (17:27)
[2023-02-11] MEDS: METOPROLOL SUCC 25MG EXT REL TAB PO SCH (19:56)
[2023-02-11] MEDS: CeleBREX 200 MG CAP PO SCH (19:57)
[2023-02-11] MEDS: DOCUSATE SODIUM 100 MG CAP PO SCH (19:57)
[2023-02-11] MEDS: SENNA 8.6 MG TAB PO SCH (19:57)
[2023-02-11] MEDS: APIXABAN 2.5 MG TAB PO SCH (19:57)
[2023-02-11] MEDS: ATORVASTATIN 20 MG TAB PO SCH (19:57)
[2023-02-12] MEDS: ceFAZolin 2000MG 2,000 MG/15 ML SYR IV SCH (00:08)
[2023-02-12] MEDS: ACETAMINOPHEN 500 MG TAB PO SCH ×3 (05:50→22:25)
[2023-02-12 07:21] LABS: Hemoglobin 10.2 g/dl (14.0-18.0); Mean Corpuscular Hemoglobin 30.6 pg (25.0-34.0); Mean Corpuscular Hgb Conc 35.2 g/dL (32.0-36.0); Mean Corpuscular Volume 87.1 fL (80.0-100.0); Mean Platelet Volume 11.6 fL (9.4-12.4); Platelet Count 123 K/uL (130-400); RDW Coefficient of Variation 13.4 % (11.5-14.5); RDW Standard Deviation 42.1 fL (36.4-46.3); Red Blood Count 3.33 M/uL (4.70-6.10); White Blood Count 11.83 K/ul (4.8-10.8)
[2023-02-12 07:51] LABS: BUN Creatinine Ratio 20.5 (10-20); Calcium 7.8 mg/dl (8.6-10.3); Creatinine Clr Calc Pharmacy 87.8 ml/min; Est GFR (African American) 80.6 ml/min; Est GFR (Non-African American) 69.5 ml/min; Potassium 4.4 mmol/L (3.5-5.1)
[2023-02-12] MEDS ORDERED: dexAMETHasone 4 MG TAB PO SCH (08:00)
[2023-02-12] MEDS: oxyCODONE HCL IR 5 MG TAB (IMMEDIATE RELEASE) PO PRN ×2 (08:24→18:10)
[2023-02-12] MEDS: APIXABAN 2.5 MG TAB PO SCH ×2 (08:25→20:36)
[2023-02-12] MEDS: MULTIVITAMIN TAB PO SCH (08:26)
[2023-02-12] MEDS: CeleBREX 200 MG CAP PO SCH ×2 (08:26→20:36)
[2023-02-12] MEDS: SPIRONOLACTONE 25 MG TAB PO SCH (08:26)
[2023-02-12] MEDS: TORSEMIDE 20 MG TAB PO SCH (08:27)
[2023-02-12] MEDS: METOPROLOL SUCC 25MG EXT REL TAB PO SCH ×2 (08:28→20:36)
[2023-02-12] MEDS: LOSARTAN POTASSIUM 50 MG TAB PO SCH (08:28)
[2023-02-12] MEDS: DOCUSATE SODIUM 100 MG CAP PO SCH ×2 (08:30→20:38)
[2023-02-12] MEDS: POTASSIUM CHLORIDE CRTAB 20 MEQ TABCR PO SCH (08:32)
[2023-02-12] MEDS: FLUTICASONE/VILANTEROL 200/25MCG 14 PUFFS/INHALER INH SCH (09:19)
[2023-02-12] MEDS ORDERED: PHARMACY GLYCEMIC MGMT CONSULT PRN (09:34)
--- NOTE | 2023-02-12 09:43 | Orthopedic Progress Note ---
Date of Service February 12, 2023 Assessment & Plan (1) S/P total knee arthroplasty: Plan: POD 1 - right TKA by Dr. Dior May be OOB, WBAT RLE with knee immobilizer in place for 24 -48 hours post op; until good quad control Use walker at all times. Regular diet as ordered Patient states that he does have his Ozempic, will order for him to get a dose today, also glycemic control consult placed PT/OT Eliquis for DVT prophylaxis. Teds and AV impulses boots while inpatient. Case management for disposition. Patient would like inpatient rehab is possible. HH has been arranged as outpatient. If approved, then will discharge to inpatient rehab, otherwise plan for discharge to Home with HH. Continue pain medication as ordered. Will plan to keep here another day for pain control, another day of PT and better control of blood glucose postoperatively. Will re-eval in AM. Dr. Dior present for today's visit. Admission and Anticipated Discharge Date Admission Date: February 11, 2023 Subjective Patient doing well. Mild pain anterior upper thigh and right foot. Pain 7/10, controlled with oral pain medication. Tolerating regular diet, some mild lightheadedness, nausea after dinner last night. Improved today. Physical Exam Musculoskeletal: Right knee dressings, clean dry and intact. Mild distal edema right lower extremity. Full motor strength right ankle. Unable to independently SLR RLE. Dorsalis pedis pulse palpable, PT pulses dopplerable. Results & Data Vital Signs (Past 12 Hours) Vital Signs Temp Pulse Resp BP Pulse Ox O2 Del Method O2 Flow Rate 02/12/23 07:37 36.6 C 91 H 18 150/82 H 92 Room Air 02/12/23 03:49 36.7 C 89 18 126/77 95 Nasal Cannula 2 02/11/23 23:37 36.7 C 93 H 18 112/70 90 CPAP Laboratory Results 02/12/23 02/11/23 Range/Units 07:00 10:52 WBC 11.83 H (4.8-10.8) K/ul RBC 3.33 L (4.70-6.10) M/uL Hgb 10.2 L (14.0-18.0) g/dl Hct 29.0 L (42.0-52.0) % MCV 87.1 (80.0-100.0) fL MCH 30.6 (25.0-34.0) pg MCHC 35.2 (32.0-36.0) g/dL RDW Std Deviation 42.1 (36.4-46.3) fL RDW Coeff of Omar 13.4 (11.5-14.5) % Plt Count 123 L (130-400) K/uL MPV 11.6 (9.4-12.4) fL Sodium 134 L (136-145) mmol/L Potassium 4.4 (3.5-5.1) mmol/L Chloride 100 (98-107) mmol/L Carbon Dioxide 28 (21-32) mmol/L Anion Gap 6 (3-11) BUN 23 (6-23) mg/dl Creatinine 1.12 (0.6-1.4) mg/dl Est Cr Clr Drug Dosing 87.8 ml/min Est GFR ( Amer) 80.6 ml/min Est GFR (Non-Af Amer) 69.5 ml/min BUN/Creatinine Ratio 20.5 H (10-20) Glucose 175 H (70-99(Fasting)) mg/dl POC Glucose 200 H (70-99) mg/dl Calcium 7.8 L (8.6-10.3) mg/dl
[2023-02-12] MEDS ORDERED: NovoLIN-N (NPH) PER UNIT CHARGE SQ ONE (09:45)
[2023-02-12] MEDS ORDERED: GLUCOSE 40% GEL 15 GM TUBE PO PRN (10:00)
[2023-02-12] MEDS ORDERED: GLUCOSE 10 TAB/TUBE PO PRN (10:00)
[2023-02-12] MEDS ORDERED: GLUCAGON FOR INJ 1 MG VIAL IM PRN (10:00)
[2023-02-12] MEDS ORDERED: DEXTROSE 50% 50 ML SYRINGE IV PRN (10:00)
[2023-02-12] MEDS ORDERED: CARBOHYDRATES FOR HYPOGLYCEMIA PO PRN (10:00)
[2023-02-12] MEDS ORDERED: SEMAGLUTIDE INJ SQ ONE (12:00)
[2023-02-12] MEDS: INSULIN ASPART PER UNIT CHARGE SC SCH ×3 (12:42→20:41)
--- NOTE | 2023-02-12 15:04 | Pharmacy Report ---
Pharmacy Glycemic Short Note 2 - Date of Service February 12, 2023 - Glycemic Short BSG Results (Last 24 hours): 02/12/23 02/12/23 07:00 11:28 Glucose 175 H POC Glucose 294 H OUTPATIENT ANTIDIABETIC REGIMEN: * Semaglutide 0.5mg SQ Weekly on Fridays - has not had for a while d/t not being able to get it in * A1c 6.4% 01/01/23 ASSESSMENT: * 62 yo male POD 1 Right TKA, T2DM, hyperglycemic, received 8mg PO Dexamethasone today. * NPH x1 dose to cover steroids, NovoLog weight based stress = 3. Loosen CF/CR as steroid effects wear off * Met with patient - he would like to take a dose of his semaglutide today also since he hasn't had it for a while, OK to give, received dose inpatient today at 1100. * Plan to discharge tomorrow PLAN FOR INPATIENT GLYCEMIC CONTROL: * Semaglutide 0.5mg SQ x 1 dose today * Basal insulin * NPH 35 units SQ x 1 dose this AM * Bolus insulin * NovoLog per scale ACHS or Q6hrs while NPO * Goal Range: Low 110 mg/dL - High 140 mg/dL * Correction Factor: 15 mg/dL/unit * Nutritional / Prandial insulin per carb ratio of 1 unit per 5 grams CHO consumed
[2023-02-12] MEDS ORDERED: INSULIN ASPART PER UNIT CHARGE SC ONE (15:15)
[2023-02-12] MEDS: SENNA 8.6 MG TAB PO SCH (20:36)
[2023-02-12] MEDS: ATORVASTATIN 20 MG TAB PO SCH (20:36)
[2023-02-13] MEDS: ACETAMINOPHEN 500 MG TAB PO SCH (05:24)
[2023-02-13] MEDS ORDERED: LANTUS PER UNIT CHARGE SC ONE (07:45)
[2023-02-13 07:58] LABS: Hematocrit (blood only) 26.6 % (42.0-52.0); Hemoglobin 9.3 g/dl (14.0-18.0); Mean Corpuscular Hemoglobin 30.7 pg (25.0-34.0); Mean Corpuscular Volume 87.8 fL (80.0-100.0); Mean Platelet Volume 12.1 fL (9.4-12.4); Platelet Count 120 K/uL (130-400); RDW Coefficient of Variation 13.7 % (11.5-14.5); RDW Standard Deviation 43.3 fL (36.4-46.3); Red Blood Count 3.03 M/uL (4.70-6.10); White Blood Count 11.12 K/ul (4.8-10.8)
[2023-02-13] MEDS: INSULIN ASPART PER UNIT CHARGE SC SCH ×2 (08:32→12:21)
[2023-02-13] MEDS: METOPROLOL SUCC 25MG EXT REL TAB PO SCH (08:33)
[2023-02-13] MEDS: APIXABAN 2.5 MG TAB PO SCH (08:34)
[2023-02-13] MEDS: CeleBREX 200 MG CAP PO SCH (08:34)
[2023-02-13] MEDS: LOSARTAN POTASSIUM 50 MG TAB PO SCH (08:34)
[2023-02-13] MEDS: MULTIVITAMIN TAB PO SCH (08:35)
[2023-02-13] MEDS: TORSEMIDE 20 MG TAB PO SCH (08:35)
[2023-02-13] MEDS: SPIRONOLACTONE 25 MG TAB PO SCH (08:35)
[2023-02-13] MEDS: FLUTICASONE/VILANTEROL 200/25MCG 14 PUFFS/INHALER INH SCH (08:36)
[2023-02-13] MEDS: DOCUSATE SODIUM 100 MG CAP PO SCH (08:38)
[2023-02-13] MEDS: POTASSIUM CHLORIDE CRTAB 20 MEQ TABCR PO SCH (08:38)
[2023-02-13] MEDS: oxyCODONE HCL IR 5 MG TAB (IMMEDIATE RELEASE) PO PRN (09:29)
--- NOTE | 2023-02-13 09:56 | Orthopedic Progress Note ---
Date of Service February 13, 2023 Assessment & Plan (1) S/P total knee arthroplasty: Plan: The patient was educated regarding today's findings. His dressings were changed by me. JOSE ALEJANDRO hose was applied. Importance of only wearing the knee immobilizer when out of bed was discussed at length. Ice and elevate the knee frequently to reduce pain and swelling. He will be discharged to home today after occupational therapy, with home health services. Prescriptions for Eliquis, tramadol, docusate sodium, and oxycodone were sent to his pharmacy. Follow-up in the office in 2 weeks as scheduled for staple removal. Written discharge instructions were provided. Call with any other concerns. Admission and Anticipated Discharge Date Admission Date: February 11, 2023 Subjective This 62-year-old male is seen today in his room. He is 2 days status post right total knee arthroplasty. He feels ready to go home. He has already particip ated with physical therapy this morning. He is waiting for occupational therapy. He denies any chest pain, shortness of breath, nausea, vomiting, or abdominal pain. No numbness or tingling. He is waiting for his dressing to be changed. He states his current dressings feel tight. No additional complaints. Review of Systems Review of Systems: Unchanged from yesterday. Physical Exam Physical Exam: General: Well-developed, well-nourished, middle-aged male, in no acute distress. Laying in bed. Alert and oriented. Conversive. Skin: Warm and dry with good turgor. No rashes. He has a postsurgical dressing in place on his right leg. Upon removal, he has expected postoperative ecchymosis and edema. [place] are intact. Wound edges well approximated. No erythema or warmth. There is scant dried blood on his most inner surgical dressings. No active bleeding from the surgical site. He also has generalized peripheral edema in the right leg. Musculoskeletal: The patient has intact motor function of his hip, knee, ankle, and toes. Knee range of motion is limited secondary to pain. He has full terminal extension. Flexion to only around 30 degrees secondary to discomfort. He is unable to perform straight leg raise without assistance. Neurologic: Gross sensation is intact across the right leg by soft touch. Peripheral pulses are 2+. Results & Data Vital Signs (Past 12 Hours) Vital Signs Temp Pulse Resp BP BP Pulse Ox O2 Del Method 02/13/23 09:54 36.3 C L 71 18 114/73 123/69 92 02/13/23 07:13 36.3 C L 71 18 114/73 92 Room Air Laboratory Results CBC obtained this morning shows a white count of 11.12. H&H of 9.3 and 26.6. Platelets 120,000. Slight decrease from yesterday at 123,000.
--- NOTE | 2023-02-13 11:22 | Discharge Summary ---
Date of Service February 13, 2023 Discharge Data Procedures Performed Operation Date: 02/11/23 07:00 Actual Procedures p Right Total Knee Arthroplasty(Right) - Eliseo Dior MD Hospital Course (1) S/P total knee arthroplasty: Patient was admitted to [facility] after undergoing an elective right total knee arthroplasty by Dr. Dior on February 03, 2023. His surgery was performed with spinal anesthesia and a peripheral nerve block. He tolerated the procedure well without any intraoperative complications. He was given 2 g of IV Ancef preoperatively which was continued for 24 hours after surgery. He was given 1 g of TXA preoperatively which was then repeated again 6 hours after the initial dose. In the recovery room and x-rays of his right knee which showed a stable right knee prosthesis. He was given IV Dilaudid, oxycodone, and tramadol, Celebrex, Toradol as needed for pain. Bowel regimen was also provided. His home medications were continued. He was given a regular diet during his inpatient stay. He was started on Eliquis 2.5 mg p.o. the evening of his procedure. He was also given JOSE ALEJANDRO stockings and AV impulse boots during his inpatient stay. On postoperative day 0 he did develop some nausea after his dinner but then that improved and he did not get that again. Physical therapy and Occupational Therapy evaluated him for gait training and safe and is to return home. He was to go to inpatient rehab but this was not approved by his insurance per case management. He also did very well when out of bed with physical therapy and Occupational Therapy with his walker. On postoperative day 1 he did ask about taking his Ozempic which was held preoperatively due to it being on backorder and we are unclear when his last dose had been. Discussed with pharmacy and his Ozempic was ordered and given on postoperative day 1. He will continue this weekly from that dose. Glycemic control consult was also placed on postoperative day 1 for management of his diabetes. He was kept overnight in the hospital due to his mildly elevated blood sugars for better glucose control and to be able to repeat PT and OT on postoperative day 2. He was seen and evaluated on postoperative day 2 and his dressings were changed. A light dressing with JOSE ALEJANDRO stockings was applied to his right knee. Home health was arranged for discharge. He was again evaluated by PT and OT and was deemed safe for discharge to his home. His vital signs remained stable during his inpatient stay. His labs remained within normal limits with some mild drop in his H&H consistent with acute blood loss anemia. He did not require any blood transfusions as he remained asymptomatic. On postoperative day 2 his pain was well-controlled and he was deemed safe for discharge to his home. He was discharged to his home in stable condition with home health. Discharge instructions were reviewed. He understood and agreed with the plan. Pain medications and blood thinner was sent to the pharmacy.
== END 2023-02-13 12:43 | disposition home health service (06) ==
LOC: PACUINP 04:55 → ASU 04:55 → 3N 13:10